=== PATIENT | female | born 1960 | race Caucasian/White ===

== ENCOUNTER 2017-12-10 16:33 | Inpatient (IN) | payer OTHER, MEDICARE ==
[~2017-12-10] VITALS: Ht 165.1 cm; Wt 66.2 kg
--- NOTE | 2017-12-10 16:38 | ED AMS/SEIZURE/WEAK/DIZZY ---
History of Present Illness General Chief Complaint: Altered Mental Status Stated Complaint: BIBA FOR AMS Source: family, EMS Exam Limitations: no limitations Vital Signs & Intake/Output Vital Signs & Intake/Output Vital Signs Date Time Temp Pulse Resp B/P B/P Pulse O2 O2 Flow FiO2 Mean Ox Delivery Rate 12/10 2156 132 18 106/80 96 Ventilator 45% 12/10 2134 124 20 103/66 95 Ventilator 45% 12/11 2039 101.9 132 18 116/78 96 Ventilator 45% 12/10 2014 45 12/10 2009 148 26 134/80 95 Non 10L ReBreather 12/10 1915 98.0 150 28 128/78 95 Non 10L ReBreather 12/10 1845 99.0 144 25 118/70 95 Nasal Cannula 12/10 1800 92 Nasal 4.0L Cannula 12/10 1715 138 24 116/86 94 Nasal 4.0L Cannula 12/10 1645 102.0 134 26 124/70 92 Room Air Triage Nurses Notes Reviewed? yes Onset: Gradual Duration: day(s): (4) Timing: recent history Injury Environment: home Severity: moderate, severe No Modifying Factors: none Associated Symptoms: REFUSING TO EAT AND DRINK HPI: 57 year old female with history of cerebral palsy from home, only takes vitamins who presents via EMS after visiting nurse came today and found her to have right years and poor by mouth intake.. Brother who takes care of her reports she vomited x 2 on Sunday and refused to eat or drink over the weekend. Normally he feeds her without difficulty. She goes to a daycare program at [facility] and usually ambulates without an aid. However over the weekend she was unable to ambulate. (Erlin CASTILLO,Grace) Allergies Coded Allergies: No Known Allergies (12/10/17) (Dilcia CASTILLO,Fernando Gale) Past History Travel History Traveled to [place] past 21 day No Medical History Any Pertinent Medical History? see below for history Neurological: CEREBRAL PALSY Surgical History Surgical History: non-contributory Family History Hx Contributory? No (Grace Kern MD) Review of Systems Review of Systems Constitutional: Reports: chills. EENTM: Reports: no symptoms. Respiratory: Reports: no symptoms. Cardiovascular: Reports: no symptoms. GI: Reports: see HPI (POOR PO INTAKE), vomiting. Genitourinary: Reports: no symptoms. Musculoskeletal: Reports: no symptoms. Skin: Reports: no symptoms. Neurological/Psychological: Reports: no symptoms. Hematologic/Endocrine: Denies: bruising, bleeding. Immunologic/Allergic: Reports: no symptoms. All Other Systems: Reviewed and Negative (Grace Kern MD) Physical Exam Physical Exam General Appearance: alert, awake, cachetic, moderate distress, severe distress, thin Head: atraumatic Eyes: Bilateral: PERRL. Ears, Nose, Throat: DRY MUCUS MEMBRANES Neck: full range of motion Respiratory: accessory muscle use, respiratory distress Cardiovascular: abdominal bruite Peripheral Pulses: 1+ radial (R), 1+ radial (L) Gastrointestinal: FIRM Extremities: NO EDEMA, MOVING ALL EXTREMITIES Neurologic/Psych: awake, alert Skin: HOT/DRY Core Measures ACS in differential dx? Yes CVA/TIA Diagnosis No Sepsis Present: Yes Sepsis Focused Exam Completed? Yes (Grace Kern MD) ED Sepsis Exam Date of Focused Sepsis Exam: 12/10/17 Time of Focused Sepsis Exam: 1911 Sepsis Cardiac Exam: Tachycardia Sepsis Resp Exam: CTA Sepsis Cap Refill Exam: >2 sec Sepsis Peripheral Pulse Exam: Normal Sepsis Peripheral Pulse Location: Radial Sepsis Skin Color Exam: Pale Skin Temp/Moisture Exam: Warm/Excessively Dry (Grace Kern MD) Progress Differential Diagnosis: arrythmia, anemia, encephalitis, electrolyte imbalance, pneumonia, UTI/pyelo, SEPSIS, INTRAABDOMINAL PROCESS, DEHYDRATION, EDIL Plan of Care: Orders Procedure Date/time Status Nothing by Mouth 12/11 B Active PHOSPHORUS 12/11 0000 Active MAGNESIUM 12/11 0000 Active COMPREHENSIVE METABOLIC PANEL 12/11 0000 Active CALCIUM 12/11 0000 Active BASIC ELECTROLYTES PLUS BUN&CR 12/11 0000 Active TROPONIN LEVEL 12/10 2330 Active EKG 12/10 2330 Active VRE ACTIVE SURVIELLANCE 12/10 2234 Active ACTIVE SURVEILLANCE NARES 12/10 2234 Active Wound Care/Dressing 12/10 222 Active Weight 12/10 2224 Active VTE Mechanical Prophylaxis 12/10 2224 Active Vital Signs 12/10 2224 Active Turn and Reposition 12/10 2224 Active Drains/Tubes 12/10 2224 Active Teach/Educate 12/10 2224 Active Skin Integrity Protocol 12/10 2224 Active Skin/Pressure Ulcer Assess (Sk 12/10 2224 Active Precautions 12/10 2224 Active Pain Treatment and Response 12/10 2224 Active Nutritional Intake, Monitor 12/10 2224 Active Isolation 12/10 2224 Active CIWA 12/10 2224 Complete Patient Care Conference 12/10 2224 Active Activity/Ambulation 12/10 2224 Active Code Status 12/10 2100 Active TRC EVALUATION (GEN) 12/10 2053 Active LOWER RESPIRATORY CULTURE 12/10 2053 Active Patient Data 12/10 2050 Active ED Holding Orders 12/10 2024 Active Admit to inpatient 12/10 2024 Active Vital Signs 12/10 2024 Active Code Status 12/10 2024 Complete LACTIC ACID 12/10 193 Active ARTERIAL BLOOD GAS (GEN) 12/10 193 Active Intake & Output 12/10 1902 Active ARTERIAL BLOOD GAS (GEN) 12/10 1826 Active GAMMA GLUTAMYL TRANSFERASE 12/10 1717 Active FingerStick- Glucose 12/10 1711 Active Straight Cath 12/10 1638 Complete CULTURE,URINE 12/10 1638 Active BLOOD CULTURE 12/10 1638 Active URINALYSIS 12/10 1638 Complete TROPONIN LEVEL 12/10 1638 Active LACTIC ACID 12/10 1638 Active COMPREHENSIVE METABOLIC PANEL 12/10 1638 Active CBC WITHOUT DIFFERENTIAL 12/10 1638 Complete EKG 12/10 1638 Active Lab Add-on Test 12/10 UNK Active Current Medications Sig/Dayday Start time Last Medication Dose Stop Time Status Admin Ampicillin Sodium/ 1,500 MG Q12 12/10 2199 AC Sulbactam Sodium (Unasyn) Sodium Chloride 100 ML (Normal Saline 0.9%) Lactated Ringer's 1,000 ML .[id number] 12/10 2144 AC 12/10 (Lactated Ringers) 2149 Laboratory Tests 12/10/172199: pH 7.29 *L, pCO2 30 L, pO2 69 L, HCO3 14 L, ABG O2 Sat (Measured) 91.0 L, P- 50 (Temp Corrected) N, Carboxyhemoglobin 0.5 L, O2 Concentration % 45%, Temperature 99.0, Respiration Rate 20, O2 Delivery Method ESPRIT VENT, Vent Mode AC, Expiratory Pressure 5, Tidal Volume 450, Phlebotomy Draw Site RIGHT RADIAL 12/10/171944: pH 7.09 *L, pCO2 59 H, pO2 375 H, HCO3 17 L, ABG O2 Sat (Measured) 99.0, P-50 (Temp Corrected) N, Carboxyhemoglobin 0.3 L, O2 Concentration % 60%, Temperature 99.0, O2 Delivery Method PRB, Phlebotomy Draw Site RIGHT RADIAL 12/10/17 1845: pH 7.23 *L, pCO2 44, pO2 82, HCO3 18 L, ABG O2 Sat (Measured) 90.0 L, P-50 ( Temp Corrected) Y, Carboxyhemoglobin 0.3 L, O2 Concentration % 4L, Temperature 102.0 H, O2 Delivery Method NC, Phlebotomy Draw Site RIGHT BRACHIAL 12/10/17 1830: Urinalysis LIGHT H, Urine Color YEL, Urine Clarity TURBD H, Urine pH 6.0, Ur Specific [place] 1.025, Urine Protein 100 H, Urine Ketones TRACE H, Urine Nitrite NEG, Urine Bilirubin SMALL H, Urine Urobilinogen 0.2, Ur Leukocyte Esterase SMALL H, Ur Microscopic SEDIMENT EXAMINED, Urine RBC 50-75 H, Urine WBC 3-5 H, Ur Epithelial Cells MANY H, Urine Bacteria MANY H, Hyaline Casts RARE H, Granular Casts MANY H, Urine Hemoglobin LARGE H, Urine Glucose NEG 12/10/17 1717: Anion Gap 16, Estimated GFR 10 L, BUN/Creatinine Ratio 23.6, Glucose 208 H, Lactic Acid 3.2 H, Calcium 6.9 L, Total Bilirubin 1.5 H, GGT Pending, AST 107 H, ALT 64 H, Alkaline Phosphatase 106, Troponin I 0.04, Total Protein 4.9 L, Albumin 2.6 L, Globulin 2.3, Albumin/Globulin Ratio 1.1, CBC w Diff MAN DIFF ORDERED, RBC 3.91 L, MCV 87.9, MCH 29.4, MCHC 33.4, RDW 13.7, MPV 8.7, Gran % 87.7 H, Lymphocytes % 3.6 L, Monocytes % 8.7, Eosinophils % 0, Basophils % 0, Absolute Granulocytes 4.5, Segmented Neutrophils 57, Band Neutrophils 30 H, Absolute Lymphocytes 0.2 L, Lymphocytes 4 L, Monocytes 6, Absolute Monocytes 0.4, Absolute Eosinophils 0, Absolute Basophils 0, Metamyelocytes 3 H, Nucleated RBCs 1 H, Platelet Estimate VERIFIED BY SMEAR, Fld Total RBCs Counted 100 Microbiology 12/10 2234 UPPER RESP: Surveillance Culture - ORD 12/10 2234 GI: Surveillance Culture - ORD 12/10 2053 LOWER RESP: Respiratory Culture - ORD 12/10 2053 LOWER RESP: Gram Stain - ORD 12/10 1830 URINE ROUT: Urine Culture - RECD 12/10 1800 BLOOD: Blood Culture - RECD 12/10 1745 BLOOD: Blood Culture - RECD Diagnostic Imaging: Viewed by Me: Radiology Read, CT Scan. Discussed w/RAD: Radiology Read, CT Scan. 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 PT REPORTS "IT HAS BEEN INFECTED ALL WEEK". C/O "FEVER AND CHILLS". DRESSING IN PLACE FROM WOUND CENTER. PT REPORTS LAST PO INTAKE 0800 TODAY - "2 EGGS AND TEA". Initial ED EKG: sinus tachycarida @ 130 bpm Rhythm Strip: sinus tachycardia Hand-Off Endorsed To: Fernando Ha MD Endorsed Time: 1906 Pending: CT (Grace Kern MD) Comments: Patient's heart rate increased to 152. Patient very mild. Repeat ABG was obtained which shows worsening acidosis. This was discussed with her brother who would like everything done. Patient intubated. (Fernando Ha MD) Departure Departure Disposition: STILL A PATIENT Referrals: Rafael Olivo MD (PCP/Family) Departure Forms: Customer Survey General Discharge Information (Grace Kern MD) Departure Condition: Critical Clinical Impression Primary Impression: Sepsis Secondary Impressions: Acute renal failure, Hypoglycemia, Metabolic acidosis, Tachycardia Admission Note Spoke With: Orestes Crespo MD Documentation of Exam: Documentation of any treatments & extenuating circumstances including Concerns Regarding Discharge (functional status, medication knowledge or non-compliance, living conditions, etc.) that warrant an admission rather than observation: [ICU admission, peripheral care consultation, IV antibiotics, aggressive hydration, nephrology consultation, respiratory therapy for ventilation settings] (Fernando Ha MD) Procedures Intubation Time of Intubation: 2014 Intubation Method: orotracheal Tube Size (cm): 7.5 Medications: succinylcholine, ETOMIDATE Breath Sounds After Intubation: equal Intubation Complications: no complications Post Intubation Xray? Yes (Fernando Ha MD) Critical Care Note Critical Care Note Critical Care Time: 30-74 min (Grace Kern MD)
--- NOTE | 2017-12-10 17:14 | RADIOLOGY REPORT ---
EXAMINATION: XR PORTABLE CHEST CLINICAL INFORMATION: Fever. Tachycardia. Vomiting. COMPARISON: None TECHNIQUE: Portable frontal view of the chest was obtained. 4:47 PM FINDINGS: Chin overlies the lung apices. No pulmonary vascular congestion. No infiltrate or pleural effusion. The cardiac and mediastinal contours are normal. There are calcifications of the aortic arch. IMPRESSION: No acute abnormality of the chest.
[2017-12-10 18:13] LABS: ABSOLUTE BASOPHIL COUNT 0 /CUMM (0.0-0.2); ABSOLUTE EOSINOPHIL COUNT 0 /CUMM (0.0-0.7); ABSOLUTE GRANULOCYTE CT 4.5 /CUMM (1.4-6.5); ABSOLUTE LYMPH COUNT 0.2 /CUMM (1.2-3.4); ABSOLUTE MONOCYTE COUNT 0.4 /CUMM (0.10-0.60); BASOPHIL % 0 % (0.0-2.0); EOSINOPHIL % 0 % (0-5); HEMATOCRIT 34.3 % (37-47); MEAN CORPUSCULAR HGB 29.4 PG (27.0-31.0); MEAN CORPUSCULAR HGB CONC 33.4 G/DL (33.0-37.0); MEAN CORPUSCULAR VOLUME 87.9 FL (81.0-99.0); MEAN PLATELET VOLUME 8.7 FL (7.4-10.4); RBC DISTRIBUTION WIDTH 13.7 % (11.5-14.5); RED BLOOD CELL CT 3.91 /CUMM (4.20-5.40); WHITE BLOOD CELL COUNT 5.1 /CUMM (4.8-10.8)
[2017-12-10 18:15] LABS: GRANULOCYTE % 87.7 % (42.2-75.2)
[2017-12-10 19:32] LABS: PLATELET COUNT 46 /CUMM (130-400)
--- NOTE | 2017-12-10 20:50 | History & Physical ---
PardeepamericaShi 12/10/172048: General Information and HPI MD Statement: I have seen and personally examined JO AVALOS and documented this H&P. The patient is a 57 year old F who presented with a patient stated chief complaint of AMS Source of Information: family Exam Limitations: unable to give history History of Present Illness: 57 year old woman from home with pmh significant for Cerebral palsy, non verbal at baseline, not on regular medications, brought by her brother for AMS. He noted since the past couple of days she seemed weak, tired and had shaking and at times would moan. She had one day where she had multiple episodes of vomiting. She had poor po intake as well as decreased UO since the past three days. No fevers were documented at home however brother felt that she warm. At baseline she needs to be fed and walks independants and attends an adult program at [facility]. She last went there on 12/07/17. Her guardians are her Brothers Tom Avalos [phone] Navid Avalos [phone]-->lives with him Allergies/Medications Allergies: Coded Allergies: No Known Allergies (12/10/17) Compliance With Home Meds: UNKNOWN Past History Travel History Traveled to [place] past 21 day No Medical History Neurological: CEREBRAL PALSY Surgical History Surgical History: non-contributory Past Family/Social History Psychosocial History Where do you live? Home Who Do You Live With? brother NAVID Smoking Status: Never Smoked ETOH Use: denies use Functional Ability ADLs Needs Assist: dressing, eating, toileting, bathing. Ambulation: independent Review of Systems Review of Systems Constitutional: Reports: see HPI. Denies: no symptoms. Exam & Diagnostic Data Last 24 Hrs of Vital Signs/I&O Vital Signs Date Time Temp Pulse Resp B/P B/P Pulse O2 O2 Flow FiO2 Mean Ox Delivery Rate 12/11 2039 101.9 132 18 116/78 96 Ventilator 45% 12/10 2014 45 12/10 2009 148 26 134/80 95 Non 10L ReBreather 12/10 1914 98.0 150 28 128/78 95 Non 10L ReBreather 12/10 1845 99.0 144 25 118/70 95 Nasal Cannula 12/10 1715 138 24 116/86 94 Nasal 4.0L Cannula 12/10 1645 102.0 134 26 124/70 92 Room Air Physical Exam General Appearance Intubated Skin No Rashes, No Breakdown Skin Temp/Moisture Exam: Cool/Dry Sepsis Skin Exam (color): Mottled HEENT PERRLA, pinpoint pupils, intubated Lymphatic Cervical nl Cardiovascular Normal S1, Normal S2, tachycardic Lungs quiet respiration Abdomen Normal Bowel Sounds, No Masses Neurological intubated and sedated Extremities No Edema, Normal Pulses, No Tenderness/Swelling Vascular Pulses Symmetrical Sepsis Peripheral Pulse Location: Dorsalis Pedis Sepsis Peripheral Pulse Exam: Normal Rectal Guiac Negative, No Hemorrhoids, no impacted stool Last 24 Hrs of Labs/Jae: Laboratory Tests 12/10/171944: pH 7.09 *L, pCO2 59 H, pO2 375 H, HCO3 17 L, ABG O2 Sat (Measured) 99.0, P-50 (Temp Corrected) N, Carboxyhemoglobin 0.3 L, O2 Concentration % 60%, Temperature 99.0, O2 Delivery Method PRB, Phlebotomy Draw Site RIGHT RADIAL 12/10/17 184: pH 7.23 *L, pCO2 44, pO2 82, HCO3 18 L, ABG O2 Sat (Measured) 90.0 L, P-50 ( Temp Corrected) Y, Carboxyhemoglobin 0.3 L, O2 Concentration % 4L, Temperature 102.0 H, O2 Delivery Method NC, Phlebotomy Draw Site RIGHT BRACHIAL 12/10/17 1830: Urinalysis LIGHT H, Urine Color YEL, Urine Clarity TURBD H, Urine pH 6.0, Ur Specific [place] 1.025, Urine Protein 100 H, Urine Ketones TRACE H, Urine Nitrite NEG, Urine Bilirubin SMALL H, Urine Urobilinogen 0.2, Ur Leukocyte Esterase SMALL H, Ur Microscopic SEDIMENT EXAMINED, Urine RBC 50-75 H, Urine WBC 3-5 H, Ur Epithelial Cells MANY H, Urine Bacteria MANY H, Hyaline Casts RARE H, Granular Casts MANY H, Urine Hemoglobin LARGE H, Urine Glucose NEG 12/10/17 1717: Anion Gap 16, Estimated GFR 10 L, BUN/Creatinine Ratio 23.6, Glucose 208 H, Lactic Acid 3.2 H, Calcium 6.9 L, Total Bilirubin 1.5 H, AST 107 H, ALT 64 H, Alkaline Phosphatase 106, Troponin I 0.04, Total Protein 4.9 L, Albumin 2.6 L, Globulin 2.3, Albumin/Globulin Ratio 1.1, CBC w Diff MAN DIFF ORDERED, RBC 3.91 L, MCV 87.9, MCH 29.4, MCHC 33.4, RDW 13.7, MPV 8.7, Gran % 87.7 H, Lymphocytes % 3.6 L, Monocytes % 8.7, Eosinophils % 0, Basophils % 0, Absolute Granulocytes 4.5, Segmented Neutrophils 57, Band Neutrophils 30 H, Absolute Lymphocytes 0.2 L, Lymphocytes 4 L, Monocytes 6, Absolute Monocytes 0.4, Absolute Eosinophils 0, Absolute Basophils 0, Metamyelocytes 3 H, Nucleated RBCs 1 H, Platelet Estimate VERIFIED BY SMEAR, Fld Total RBCs Counted 100 Microbiology 12/10 2053 LOWER RESP: Respiratory Culture - ORD 12/10 2053 LOWER RESP: Gram Stain - ORD 12/10 1830 URINE ROUT: Urine Culture - RECD 12/10 1800 BLOOD: Blood Culture - RECD 12/10 174 BLOOD: Blood Culture - RECD Diagnostic Data CXR Results SERVICE DATE: 12/10/17 EXAM TYPE: RAD - XRY-PORTABLE CHEST XRAY FINDINGS: Chin overlies the lung apices. No pulmonary vascular congestion. No infiltrate or pleural effusion. The cardiac and mediastinal contours are normal. There are calcifications of the aortic arch. IMPRESSION: No acute abnormality of the chest. SERVICE DATE: 12/10/17 EXAM TYPE: RAD - XRY-PORTABLE CHEST XRAY EXAMINATION: AP portable chest radiograph CLINICAL INFORMATION: Post intubation Other Results SERVICE DATE: 12/10/17 EXAM TYPE: CAT - CT ABD & PELVIS W/O IV CONTRAS; CT CHEST WO IV CONTRAST CT CHEST: Endotracheal and orogastric tubes in place. There is diffuse interlobular septal thickening and there is central vascular congestion suggesting mild to moderate interstitial pulmonary edema. There are small bilateral pleural effusions and there is left greater than right lower lobe consolidation that may reflect alveolar edema, atelectasis, or superimposed pneumonia in light of the clinical history. The thoracic aorta is normal in caliber. The heart is normal in size without evidence of a pericardial effusion. There is no mediastinal, hilar, or axillary adenopathy. No significant soft tissue findings within the chest. No acute osseous abnormalities. Motion artifact degrades assessment of the sternum. Spondylosis within the imaged cervical spine and upper thoracic spine. CT ABDOMEN/PELVIS: Limited evaluation of the unenhanced liver, spleen, adrenal glands, gallbladder, and pancreas reveals no definite abnormality. There is left-sided obstructive uropathy with an 8mm obstructing calculus (Hounsfield units measure 656) within the left ureteropelvic junction resulting in severe left-sided hydronephrosis. There are 2 adjacent 7 mm calculi within the lower pole of the left kidney there are a few punctate calculi at this level of the left kidney as well. There is significant left-sided perinephric stranding making it difficult to exclude superimposed pyelonephritis and/or forniceal rupture. Large volume intracolonic stool. The large and small bowel are normal in caliber without evidence of mechanical obstruction. No focal inflammatory changes adjacent to the large or the small bowel. The appendix is normal. There is no free air and there is no intra-abdominal free fluid. No mesenteric or retroperitoneal adenopathy. Bladder decompressed with a William catheter in place. No pelvic adenopathy. No free fluid within the pelvis. There are no acute osseous abnormalities. IMPRESSION: - There is left-sided obstructive uropathy with an 8mm obstructing calculus (Hounsfield units measure 656) within the left ureteropelvic junction resulting in severe left-sided hydronephrosis. There is significant left-sided perinephric stranding making it difficult to exclude superimposed pyelonephritis and/or forniceal rupture. - Additional calculi within the left kidney measuring up to 7 mm as discussed above. - There is diffuse interlobular septal thickening and there is central vascular congestion suggesting mild to moderate interstitial pulmonary edema. There are small bilateral pleural effusions and there is left greater than right lower lobe consolidation that may reflect alveolar edema, atelectasis, aspiration, or superimposed pneumonia in light of the clinical history. - Large volume intracolonic stool. No bowel obstruction. Assessment/Plan Assessment: 57 year old woman from home with pmh significant for Cerebral palsy, non verbal at baseline, not on regular medications, brought by her brother for AMS. Found to be in hypercarbic/hypoxic respiratory failure and was intubated in ED. Vitals on admission MAXIMUM TEMPERATURE 102, heart rate 124-132, blood pressure 124/70-->113/70 Labs significant for WBC 5.1, hemoglobin 11.5, hematocrit 34.3, platelets 46, left shift with bandemia of 30, sodium 138, potassium 4.5, chloride 101, bicarbonate 21, B1 106, creatinine 4.5, anion gap 16, T bili 1.5, AST 107, ALT 64, ALP 104, T bili 1.5, glucose 203, lactic acid 3.2, calcium 6.9 UA proteinuria of 100, trace ketones positive small leukocyte esterases, hyaline/ granular casts, hemoglobinuria ABG 7.23/44/82/18 on nasal cannula ---> 7.09/59/375/17 on nonrebreather ED course:S/p 5 liters normal saline, given 1 mg Ativan, 1 x time dextrose push for fingersticks of 55, one-time dose of 1 g ceftriaxone, and 1 g ca chloride for hypocalcemia. Imaging: CT CHEST: diffuse interlobular septal thickening and there is central vascular congestion suggesting mild to moderate interstitial pulmonary edema. There are small bilateral pleural effusions and there is left greater than right lower lobe consolidation that may reflect alveolar edema, atelectasis, or superimposed pneumonia CT ABDOMEN/PELVIS: left-sided obstructive uropathy with an 8mm obstructing calculus within the left ureteropelvic junction resulting in severe left-sided hydronephrosis. No free fluid within the pelvis. Problem list: severe sepsis NAGMA EDIL Transamintis thrombocytopenia Assessment and plan: Severe Sepsis: Multifactorial secondary to left-sided obstructive uropathy and community acquired pneumonia Admitted to ICU, vitals per protocol Given one-time of IV ceftriaxone Will give one-time dose of Zosyn and vancomycin, follow-up blood cultures Spoke to on-call urologist Dr. Jama who will come in for emergent decompression and stent placement tonight Trend troponin EKG, lactic acid and ICU bundle after transfer to ICU BP not responding to fluids (s/p 7 L ), will require pressors so we'll proceed with central line placement, will start on peripheral levo in the interim. Consent for central line and blood transfusion if needed obtained from guardian and placed in chart. Hypercarbic hypoxic respiratory failure Intubated in ER AC 450/20/45/[address]% [address] chest shows superimposed pneumonia and moderate pulmonary edema Once urgent decompression is done patient will likely need diuresis pending blood pressure Started on IV Ativan for sedation crcu consult in a.m. Follow up sputum culture Acute kidney injury secondary to dehydration and obstructive uropathy continue to monitor closely Hyperbilirubinemia/transaminitis/thrombocytopenia likely secondary to her sepsis will continue to trend will follow up fibrinogen to r/o DIC DVT prophylaxis ALPS (thrombocytopenia) code status: DNR Her brothers and [id number] are her guardians. Contact information in HPI. Family initially wanted to de-escalate her care however however they would like to attempt the decompression with ureteral stent along with central line and continuing current management for now. They will reassess her care pending her response. As Ranked By This Provider Problem List: 1. Sepsis 2. Acute renal failure 3. Metabolic acidosis Core Measures/Misc (06/17) Acute Coronary Syndrome ACS Diagnosis: No Congestive Heart Failure Congestive Heart Failure Diagnosis No Cerebrovascular Accident CVA/TIA Diagnosis: No VTE (View Protocol) VTE Risk Factors Acute Medical Illness No Mechanical VTE Prophylaxis d/t N/A MechProphylax Ordered No VTE Pharm Prophylaxis d/t Surgical Contraindication Sepsis (View protocol) Sepsis Present: Yes Orestes Crespo 12/11/17 0301: Attending MD Review Statement Attending Statement Attending MD Statement: examined this patient, discuss w/resident/PA/MEAT COOLER, agreed w/resident/PA/MEAT COOLER, discussed with family, reviewed EMR data (avail), reviewed images, amended to note Attending Assessment/Plan: CC: Altered mental status PMH: Cerebral palsy Patient was brought in ER through EMS for altered mental status and high-grade fever. Patient has baseline cerebral palsy, ambulates without assistance, needs assistance in feeding, nonverbal. According to her street light servicer supervisor brother Navid, patient was looking sick since last 3 days, throwing up since one day, multiple times, nonbloody, no diarrhea. Patient cannot complain of pain but he could see her shaking and subjective fever. Today patient was more altered in mental status so he called an ambulance. Otherwise history is limited. Patient is not allergic to any medications, does not take any medication on a regular basis. Vitals: Tmax 102, pulse 130s - 150s, RR 26, blood pressure 124/70 on arrival, saturating 92% on 4 L initially, then on 10 L and later intubated. On examination patient intubated, CVS: S1-S2 RRR RS: Equal air entry bilaterally , JVD not elevated, mucosa extremely dry, abdomen soft, bowel sounds present, no peripheral edema, skin appears mottled, William in place, right-sided EJ line present, feeble peripheral pulses CT head:No acute intracranial pathology. CT abdomen and pelvis and chest without IV contrast: - There is left-sided obstructive uropathy with an 8mm obstructing calculus ( Hounsfield units measure 656) within the left ureteropelvic junction resulting in severe left-sided hydronephrosis. There is significant left-sided perinephric stranding making it difficult to exclude superimposed pyelonephritis and/or forniceal rupture. - Additional calculi within the left kidney measuring up to 7 mm as discussed above. - There is diffuse interlobular septal thickening and there is central vascular congestion suggesting mild to moderate interstitial pulmonary edema. There are small bilateral pleural effusions and there is left greater than right lower lobe consolidation that may reflect alveolar edema, atelectasis, aspiration, or superimposed pneumonia in light of the clinical history. - Large volume intracolonic stool. No bowel obstruction. Assessment and plan 57-year-old female with past medical history significant for cerebral palsy, nonverbal at baseline, ambulates independently, presented in ER for heart and mental status and fever. Patient's brother noticed subjective fever, chills and one day history of vomiting, but patient appeared a little sick since last 2-3 days, difficult to explain what exactly. Patient cannot complain anything secondary to her cerebral palsy. Patient was severely tachypneic upon arrival, fever of 102 and blood pressure was maintaining initially. ABG was 7.32/44/82/18 on 4 L nasal cannula. Patient became progressively tachypneic even with fluid resuscitation, repeat ABG showed pH of 7.09, PCO2 49, PO2 375, HCO3 17 on nonrebreather, patient was immediately intubated while in ER. Patient's blood pressure decreased to 90/50 at that time but improved with hydration. Patient is intubated, exam is noncontributory except severe dehydration. She shows WBC normal range but 30 bands. She has thrombocytopenia of 46. Her BUN is significantly elevated to 106, creatinine 4.5, baseline unknown, lactate 3.2, elevated bilirubin to 1.5, mild transaminitis with AST 107 and ALT 64 and albumin of 2.6. UA shows evidence of leukocyte esterase. On imaging she is found to have obstructive ureter at stone, with left-sided hydronephrosis, suspected pyelonephritis. After transferring to intensive care unit patient's blood pressure dropped to 70/Doppler, not responding much even after 7 L boluses, patient was started on peripheral Levophed, left sided IJ line was placed. Blood culture 2 sets came back positive for gram-negative rods, patient's antibiotics were broadened to Zosyn. Urology was called, expecting cystoscopy and stent placement. I had an extensive discussion with patient's family, 2 brothers and one sister- in-law, they were ambiguous about decision making. Initially they wanted her only to be comfortable, refused central line. Once it was explained that urinary infection and ureteric stone can be treated, they agreed for central line, aggressive measures but DNR. If patient does not appropriately response to treatment they want to change her to comfort measures only. They are involved with every step of care. + Septic shock secondary to pyelonephritis with gram-negative bacteremia + Left-sided hydronephrosis with suspected pyelonephritis + Acute kidney injury + Thrombocytopenia + Acute respiratory failure: Hypoxic and hypercarbic + Metabolic acidosis: severe + Mild transaminitis - Admit to ICU - Close vitals monitoring - Continue at assist control, tidal volume 450 PEEP 5, respiratory rate of 24,, titrate oxygen according to saturations, repeat ABG one hour later followed by in AM - Continue to wide bore peripheral lines - Continue Levophed titrated to map 65 - Additional Fabian-Synephrine if blood pressure not controlled - Continue maintenance fluid D5NS - Follow up urine culture, blood culture - Trend lactate - Send DIC panel 4 thrombocytopenia - Continue IV Zosyn - Follow-up urology recommendations - DVT prophylaxis with Alps only - Continue Ativan for sedation - Critical care consult - IV Protonix 40 mg daily - Oral care - DNR TTS 55 min
--- NOTE | 2017-12-10 21:29 | RADIOLOGY REPORT ---
EXAMINATION: AP portable chest radiograph CLINICAL INFORMATION: Post intubation COMPARISON: Chest x-ray 12/10/2017 TECHNIQUE: Portable frontal view of the chest was obtained. FINDINGS: Endotracheal tube tip is 4 cm above the channing. Orogastric tube courses below the diaphragm with its tip projecting over the stomach. Symmetric lung inflation. There is patchy airspace opacity within the left lower lung and there is diffuse interstitial prominence. No definite pleural effusion. No pneumothorax. Cardiac silhouette size is normal and the aorta is tortuous. IMPRESSION: - Endotracheal tube tip 4 cm above the channing. Orogastric tube within the stomach. - Patchy airspace opacity at the left lung base and diffuse interstitial opacities have progressed.
--- NOTE | 2017-12-10 21:32 | CT SCAN REPORT ---
EXAMINATION: CT HEAD WITHOUT CONTRAST CLINICAL INFORMATION: Altered mental status COMPARISON: None TECHNIQUE: Contiguous axial imaging was performed from the skull base to vertex without intravenous administration of contrast. DLP: 603.69 mGy-cm FINDINGS: There is no evidence of acute intracranial hemorrhage or territorial infarction. No abnormal mass effect or midline shift is seen. Young to white matter differentiation is well preserved. No extra-axial fluid collections are identified. The ventricles are normal in size. There is no abnormal attenuation within the brain parenchyma. The osseous structures and soft tissues are normal. There is significant mucosal thickening in the ethmoid sinuses. Thick rim of mucosal thickening also seen in the superior maxillary sinuses. There is no fluid in the middle ear cavities or the mastoid air cells. IMPRESSION: No acute intracranial pathology.
--- NOTE | 2017-12-10 21:44 | CT SCAN REPORT ---
CT CHEST, ABDOMEN, AND PELVIS WITHOUT CONTRAST CLINICAL INFORMATION: Normal chest x-ray with renal failure and fever. Altered mental status. COMPARISON: Chest x-ray performed earlier the same day. TECHNIQUE: A multidetector CT acquisition of the chest, abdomen, and pelvis was obtained without IV contrast FINDINGS: CT CHEST: Endotracheal and orogastric tubes in place. There is diffuse interlobular septal thickening and there is central vascular congestion suggesting mild to moderate interstitial pulmonary edema. There are small bilateral pleural effusions and there is left greater than right lower lobe consolidation that may reflect alveolar edema, atelectasis, or superimposed pneumonia in light of the clinical history. The thoracic aorta is normal in caliber. The heart is normal in size without evidence of a pericardial effusion. There is no mediastinal, hilar, or axillary adenopathy. No significant soft tissue findings within the chest. No acute osseous abnormalities. Motion artifact degrades assessment of the sternum. Spondylosis within the imaged cervical spine and upper thoracic spine. CT ABDOMEN/PELVIS: Limited evaluation of the unenhanced liver, spleen, adrenal glands, gallbladder, and pancreas reveals no definite abnormality. There is left-sided obstructive uropathy with an 8mm obstructing calculus (Hounsfield units measure 656) within the left ureteropelvic junction resulting in severe left-sided hydronephrosis. There are 2 adjacent 7 mm calculi within the lower pole of the left kidney there are a few punctate calculi at this level of the left kidney as well. There is significant left-sided perinephric stranding making it difficult to exclude superimposed pyelonephritis and/or forniceal rupture. Large volume intracolonic stool. The large and small bowel are normal in caliber without evidence of mechanical obstruction. No focal inflammatory changes adjacent to the large or the small bowel. The appendix is normal. There is no free air and there is no intra-abdominal free fluid. No mesenteric or retroperitoneal adenopathy. Bladder decompressed with a William catheter in place. No pelvic adenopathy. No free fluid within the pelvis. There are no acute osseous abnormalities. IMPRESSION: - There is left-sided obstructive uropathy with an 8mm obstructing calculus (Hounsfield units measure 656) within the left ureteropelvic junction resulting in severe left-sided hydronephrosis. There is significant left-sided perinephric stranding making it difficult to exclude superimposed pyelonephritis and/or forniceal rupture. - Additional calculi within the left kidney measuring up to 7 mm as discussed above. - There is diffuse interlobular septal thickening and there is central vascular congestion suggesting mild to moderate interstitial pulmonary edema. There are small bilateral pleural effusions and there is left greater than right lower lobe consolidation that may reflect alveolar edema, atelectasis, aspiration, or superimposed pneumonia in light of the clinical history. - Large volume intracolonic stool. No bowel obstruction.
[2017-12-11] VITALS: BP 78/00
--- NOTE | 2017-12-11 01:20 | Proc Note Internal Medicine ---
Medicine Procedure Procedure Date: 12/11/17 Medical Procedure(s): central venous cath place Pre-Operative Diagnosis: Obstructive uropathy Estimated Blood Loss: scant Anesthesia: local Procedure Findings: Resident: Oriana Perez MD Consent was obtained by the ICU team from the the pts family. A time-out was completed verifying correct patient, procedure, site, positioning , and special equipment if applicable. The patient was placed in a dependent position appropriate for central line placement based on the vein to be cannulated. The patients right neck was prepped and draped in sterile fashion. 1% Lidocaine was used to anesthetize the surrounding skin area. A triple lumen catheter was introduced into the the left internal jugular using the Seldinger technique and under ultrasound guidance. The catheter was threaded smoothly over the guide wire and appropriate blood return was obtained. Each lumen of the catheter was evacuated of air and flushed with sterile saline. The catheter was then sutured in place to the skin and a sterile dressing applied. Perfusion to the extremity distal to the point of catheter insertion was checked and found to be adequate. Attending physician Orestes Crespo MD was present for the entire procedure. Estimated Blood Loss: 10 ml The patient tolerated the procedure well and there were no complications. Chest x ray was ordered to confirm the placement of IJ line.
--- NOTE | 2017-12-11 01:49 | RADIOLOGY REPORT ---
EXAMINATION: XR PORTABLE CHEST CLINICAL INFORMATION: Central line placement COMPARISON: 12/10/2017 TECHNIQUE: Portable frontal view of the chest was obtained. FINDINGS: Endotracheal tube tip lies 4.3 cm above the channing. Enteric tube courses into the stomach. Left IJ central line tip lies at the level of the cavoatrial junction. Lung volumes are symmetric. There is hazy perihilar and left upper lung airspace opacity. No pneumothorax is seen though the right lung apex is not fully included on this exam. No significant pleural effusion. The cardiomediastinal contour is unremarkable. No acute osseous findings are seen. IMPRESSION: Left IJ central line tip in the region of the cavoatrial junction. Hazy perihilar and left upper lobe opacification which may reflect edema.
[2017-12-11 02:25] LABS: ABSOLUTE BASOPHIL COUNT 0 /CUMM (0.0-0.2); ABSOLUTE GRANULOCYTE CT 4.7 /CUMM (1.4-6.5); ABSOLUTE LYMPH COUNT 0.2 /CUMM (1.2-3.4); ABSOLUTE MONOCYTE COUNT 0.9 /CUMM (0.10-0.60); BASOPHIL % 0 % (0.0-2.0); EOSINOPHIL % 14.1 % (0-5); MEAN CORPUSCULAR HGB 29.8 PG (27.0-31.0); MEAN CORPUSCULAR HGB CONC 34.2 G/DL (33.0-37.0); MEAN CORPUSCULAR VOLUME 87.2 FL (81.0-99.0); MEAN PLATELET VOLUME 9.5 FL (7.4-10.4); RBC DISTRIBUTION WIDTH 14.1 % (11.5-14.5); RED BLOOD CELL CT 3.33 /CUMM (4.20-5.40); WHITE BLOOD CELL COUNT 6.8 /CUMM (4.8-10.8)
[2017-12-11 02:40] LABS: PLATELET COUNT 23 /CUMM (130-400)
--- NOTE | 2017-12-11 02:54 | Cons- Urology ---
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 She was brought to the ER with altered mental status and was found to have a septic picture. Urine was c/w UTI on U/A. CT of the abd and pelvis showed an obstructing stone at the L UPJ as well as some non obstructing stones in the L lower pole. Allergies/Medications Allergies: Coded Allergies: No Known Allergies (12/10/17) Current Medications: Current Medications Sig/Dayday Start time Last Medication Dose Route Stop Time Status Admin Acetaminophen 0 .STK-MED ONE 12/10 2107 DC IV Ampicillin Sodium/ 1,500 MG Q12 12/10 2200 DC Sulbactam Sodium IV Sodium Chloride 100 ML Calcium Chloride 0 .STK-MED ONE 12/10 1917 DC .ROUTE Calcium Chloride 1 GM ONCE ONE 12/10 1845 DC 12/10 IV 12/10 1846 1909 Ceftriaxone Sodium 0 .STK-MED ONE 12/10 1832 DC .ROUTE Ceftriaxone Sodium 1,000 MG ONCE ONE 12/10 1830 DC / IV 12/10 1831 1832 Dextrose 25 GM ONE ONE 12/10 2345 DC 12/10 IV 12/10 2346 2340 Dextrose 25 GM ONCE ONE 12/10 1715 DC 12/10 IV 12/10 1716 1715 Dextrose/Lactated 1,000 ML Q13H 12/10 2345 AC 12/11 Ringer's IV 0122 Etomidate 20 MG ONCE ONE 12/10 2030 DC /12 IV 12/10 Heparin Sodium 5,000 UNIT Q8 12/11 1400 CAN (Porcine) SC Lactated Ringer's 1,000 ML ONCE ONE 12/10 2315 DC IV 12/10 2316 Lactated Ringer's 1,000 ML .[id number] 12/10 2145 AC 12/10 IV 2150 Lactated Ringer's 1,000 ML .Q2H 12/10 2100 DC 12/10 IV 12/10 2259 2119 Lorazepam 50 MG Q24H 12/10 2345 AC 12/11 Dextrose/Water 500 ML IV 0030 Lorazepam 1 MG ONCE ONE 12/10 1930 DC / IV / 193 1930 Lorazepam 0 .STK-MED ONE 12/10 1923 DC .ROUTE Lorazepam 0 .STK-MED ONE 12/10 1832 DC .ROUTE Lorazepam 1 MG ONCE ONE 12/10 1830 DC / IV / 1831 1831 Norepinephrine 4 MG Q24H 12/10 2345 AC 12/11 Dextrose/Water 250 ML IV 0156 Phenylephrine HCl 40 MG Q24H 12/11 0300 CAN Dextrose/Water 250 ML IV Phenylephrine HCl 40 MG Q24H 12/11 0300 AC Sodium Chloride 250 ML IV Sodium Chloride 1,000 ML BOLUS ONE 12/10 1830 DC / IV 12/10 192 1909 Sodium Chloride 1,000 ML BOLUS ONE 12/10 1830 DC / IV 12/10 192 1909 Sodium Chloride 1,000 ML BOLUS ONE 12/10 1645 DC / IV 12/10 1744 1715 Succinylcholine 100 MG ONCE ONE 12/10 2029 DC 12/10 Chloride IV 12/10 Vancomycin HCl 1,000 MG ONCE ONE 12/10 2315 CAN Dextrose/Water 250 ML IV 12/11 0014 Vecuronium Jolo 10 MG ONCE ONE 12/10 2029 DC 12/10 IV 12/10 Past History Medical History Blood Transfusion Hx: No Neurological: CEREBRAL PALSY EENT: NONE Cardiovascular: NONE Respiratory: NONE Gastrointestinal: NONE Hepatic: NONE Renal: NONE Musculoskeletal: NONE Psychiatric: NONE Endocrine: NONE Blood Disorders: NONE Cancer(s): NONE DIRECTOR OF VALUATION/Reproductive: NONE Surgical History Pertinent Surgical History: non-contributory Psychosocial History Where Do You Live? Home Who Do You Live With? brother FER Smoking Status: Never Smoked ETOH Use: denies use Illicit Drug Use: denies illicit drug use Functional Ability ADLs Needs Assist: dressing, eating, toileting, bathing. Ambulation: independent Exam & Diagnostic Data Vital Signs and I&O Vital Signs Date Time Temp Pulse Resp B/P B/P Pulse O2 O2 Flow FiO2 Mean Ox Delivery Rate 12/11 0156 130 20 67/51 12/11 0124 50 12/10 2345 99.3 127 20 71/58 12/10 2340 93 Ventilator 50% 12/10 2240 50 12/10 2157 132 18 106/80 96 Ventilator 45% 12/105 124 20 103/66 95 Ventilator 45% 12/100 101.9 132 18 116/78 96 Ventilator 45% 12/10 2014 45 12/10 2009 148 26 134/80 95 Non 10L ReBreather 12/10 1915 98.0 150 28 128/78 95 Non 10L ReBreather 12/10 1845 99.0 144 25 118/70 95 Nasal Cannula 12/10 1800 92 Nasal 4.0L Cannula 12/10 1715 138 24 116/86 94 Nasal 4.0L Cannula 12/10 1645 102.0 134 26 124/70 92 Room Air Intake & Output 12/11 0800 12/11 0000 12/10 1600 12/10 0800 12/10 0000 12/09 1600 Intake Total 6000 Output Total 60 Balance 5940 Intake, IV 6000 Output, Urine 60 Patient 133 lb Weight Weight Bed scale Measurement Method Intubated and unresponsive Back: no CVA tenderness Abd; soft and non tender Laboratory Tests 12/11 12/11 12/10 0150 0020 2330 Chemistry Sodium (137 - 145 mmol/L) 141 Potassium (3.5 - 5.1 mmol/L) 4.2 Chloride (98 - 107 mmol/L) 115 H Carbon Dioxide (22 - 30 mmol/L) 15 L Anion Gap (5 - 16) 11 BUN (7 - 17 mg/dL) 81 H Creatinine (0.5 - 1.0 mg/dL) 3.7 H Estimated GFR (>60 ml/min) 13 L Glucose (65 - 99 mg/dL) 148 H Lactic Acid (0.7 - 2.1 mmol/L) 4.4 H Calcium (8.4 - 10.2 mg/dL) 7.0 L Phosphorus (2.5 - 4.5 mg/dL) 4.6 H Magnesium (1.6 - 2.3 mg/dL) 1.6 Total Bilirubin (0.2 - 1.3 mg/dL) 1.3 AST (14 - 36 U/L) 90 H ALT (9 - 52 U/L) 58 H Troponin I (< 0.11 ng/ml) 0.11 *H Cancelled Albumin (3.5 - 5.0 g/dL) 1.9 L Coagulation PT Pending INR Pending APTT Pending Fibrinogen Activity Pending Hematology CBC w Diff MAN DIFF ORDERED WBC (4.8 - 10.8 /CUMM) 6.8 RBC (4.20 - 5.40 /CUMM) 3.33 L Hgb (12.0 - 16.0 G/DL) 9.9 L Hct (37 - 47 %) 29.0 L MCV (81.0 - 99.0 FL) 87.2 MCH (27.0 - 31.0 PG) 29.8 MCHC (33.0 - 37.0 G/DL) 34.2 RDW (11.5 - 14.5 %) 14.1 Plt Count (130 - 400 /CUMM) 23 *L MPV (7.4 - 10.4 FL) 9.5 Gran % (42.2 - 75.2 %) 69.0 Lymphocytes % (20.5 - 51.1 %) 3.4 L Monocytes % (1.7 - 9.3 %) 13.5 H Eosinophils % (0 - 5 %) 14.1 H Basophils % (0.0 - 2.0 %) 0 Absolute Granulocytes (1.4 - 6.5 /CUMM) 4.7 Segmented Neutrophils (42.2 - 75.2 %) 48 Band Neutrophils (0.0 - 5.0 %) 8 H Absolute Lymphocytes (1.2 - 3.4 /CUMM) 0.2 L Lymphocytes (20.5 - 51.1 %) 14 L Monocytes (1.7 - 9.3 %) 21 H Absolute Monocytes (0.10 - 0.60 /CUMM) 0.9 H Absolute Eosinophils (0.0 - 0.7 /CUMM) 1.0 Absolute Basophils (0.0 - 0.2 /CUMM) 0 Metamyelocytes (0.0 - 1.0 %) 6 H Myelocytes (0 - 0 %) 3 H Platelet Estimate (ADEQUATE) VERIFIED BY SMEAR Polychromasia 1+ Anisocytosis 1+ Monae Cells 1+ 12/100 194 193 Blood Gas pH (7.35 - 7.45 PH) 7.29 *L 7.09 *L pCO2 (35 - 45 TORR) 30 L 59 H pO2 (80 - 100 TORR) 69 L 375 H HCO3 (21 - 28 MEQ/L) 14 L 17 L ABG O2 Sat (Measured) (>96.0 %) 91.0 L 99.0 P-50 (Temp Corrected) N N Carboxyhemoglobin (1.5 - 5.0 %) 0.5 L 0.3 L O2 Concentration % 45% 60% Temperature (97.0 - 100.0 FARH) 99.0 99.0 Respiration Rate (BPM) 20 O2 Delivery Method ESPRIT VENT PRB Vent Mode AC Expiratory Pressure (CMH2O/P) 5 Tidal Volume (CC) 450 Chemistry Lactic Acid Cancelled Miscellaneous Phlebotomy Draw Site RIGHT RADIAL RIGHT RADIAL 12/10 12/10 1845 1830 Blood Gas pH (7.35 - 7.45 PH) 7.23 *L pCO2 (35 - 45 TORR) 44 pO2 (80 - 100 TORR) 82 HCO3 (21 - 28 MEQ/L) 18 L ABG O2 Sat (Measured) (>96.0 %) 90.0 L P-50 (Temp Corrected) Y Carboxyhemoglobin (1.5 - 5.0 %) 0.3 L O2 Concentration % 4L Temperature (97.0 - 100.0 FARH) 102.0 H O2 Delivery Method NC Miscellaneous Phlebotomy Draw Site RIGHT BRACHIAL Urines Urinalysis LIGHT H Urine Color (YEL,AMB,STR) YEL Urine Clarity (CLEAR) TURBD H Urine pH (5.0 - 8.0) 6.0 Ur Specific [place] (1.001 - 1.035) 1.025 Urine Protein (NEG,<30 MG/DL) 100 H Urine Ketones (NEG) TRACE H Urine Nitrite (NEG) NEG Urine Bilirubin (NEG) SMALL H Urine Urobilinogen (0.1 - 1.0 EU/dl) 0.2 Ur Leukocyte Esterase (NEG) SMALL H Ur Microscopic SEDIMENT EXAMINED Urine RBC (0 - 5 /HPF) 50-75 H Urine WBC (0 - 2 /HPF) 3-5 H Ur Epithelial Cells (NONE,FEW) MANY H Urine Bacteria (NEG/NONE) MANY H Hyaline Casts (0/LPF) RARE H Granular Casts (NONE /LPF) MANY H Urine Hemoglobin (NEG) LARGE H Urine Glucose (N MG/DL) NEG 12/10 171 Chemistry Sodium (137 - 145 mmol/L) 138 Potassium (3.5 - 5.1 mmol/L) 4.5 Chloride (98 - 107 mmol/L) 101 Carbon Dioxide (22 - 30 mmol/L) 21 L Anion Gap (5 - 16) 16 BUN (7 - 17 mg/dL) 106 *H Creatinine (0.5 - 1.0 mg/dL) 4.5 H Estimated GFR (>60 ml/min) 10 L BUN/Creatinine Ratio (7 - 25 %) 23.6 Glucose (65 - 99 mg/dL) 208 H Lactic Acid (0.7 - 2.1 mmol/L) 3.2 H Calcium (8.4 - 10.2 mg/dL) 6.9 L Total Bilirubin (0.2 - 1.3 mg/dL) 1.5 H GGT (12 - 43 U/L) 12 AST (14 - 36 U/L) 107 H ALT (9 - 52 U/L) 64 H Alkaline Phosphatase (<127 U/L) 106 Troponin I (< 0.11 ng/ml) 0.04 Total Protein (6.3 - 8.2 g/dL) 4.9 L Albumin (3.5 - 5.0 g/dL) 2.6 L Globulin (1.9 - 4.2 gm/dL) 2.3 Albumin/Globulin Ratio (1.1 - 2.2 %) 1.1 Hematology CBC w Diff MAN DIFF ORDERED WBC (4.8 - 10.8 /CUMM) 5.1 RBC (4.20 - 5.40 /CUMM) 3.91 L Hgb (12.0 - 16.0 G/DL) 11.5 L Hct (37 - 47 %) 34.3 L MCV (81.0 - 99.0 FL) 87.9 MCH (27.0 - 31.0 PG) 29.4 MCHC (33.0 - 37.0 G/DL) 33.4 RDW (11.5 - 14.5 %) 13.7 Plt Count (130 - 400 /CUMM) 46 L MPV (7.4 - 10.4 FL) 8.7 Gran % (42.2 - 75.2 %) 87.7 H Lymphocytes % (20.5 - 51.1 %) 3.6 L Monocytes % (1.7 - 9.3 %) 8.7 Eosinophils % (0 - 5 %) 0 Basophils % (0.0 - 2.0 %) 0 Absolute Granulocytes (1.4 - 6.5 /CUMM) 4.5 Segmented Neutrophils (42.2 - 75.2 %) 57 Band Neutrophils (0.0 - 5.0 %) 30 H Absolute Lymphocytes (1.2 - 3.4 /CUMM) 0.2 L Lymphocytes (20.5 - 51.1 %) 4 L Monocytes (1.7 - 9.3 %) 6 Absolute Monocytes (0.10 - 0.60 /CUMM) 0.4 Absolute Eosinophils (0.0 - 0.7 /CUMM) 0 Absolute Basophils (0.0 - 0.2 /CUMM) 0 Metamyelocytes (0.0 - 1.0 %) 3 H Nucleated RBCs (0.0 - 0.0 /100WBC) 1 H Platelet Estimate (ADEQUATE) VERIFIED BY SMEAR Other Body Source Fld Total RBCs Counted (%) 100 Assessment/Plan Assessment/Plan Imp: 1. Sepsis, likely of urologic origin 2. Obstructing L UPJ stone Plan: 1. For attempt at emergent L ureteral stent placement Consult Acknowledgment - Thank you for your consult request.
[2017-12-11 02:56] LABS: PT 13.9 SEC (9.4-12.5); PTT 27 SEC (25-37)
--- NOTE | 2017-12-11 03:04 | Event Note ---
Event Note Event Note: Emergent left IJ line was placed, and made arrangements for stent placement by Dr. Cullen for the managment of obstructing Obstructing L UPJ stone. Central left IJ line was placed. Confirmed from the radiology about the appropriate placement. Levophed was continued. Was informed that the blood cultures were positive for GNRs. Started the pt on zosyn. Plan to discuss w/ the infectious disease specialist in the am. BP remained persistently low despite being on levophed. Started on neosynephrine , since it is easily titratable. Discussed with the pts brother about the management plan, and consent obtained for the stent placement. Transfered the pt to the OR. Discussed w/ Dr. Cullen about the incidental CT scan finding of forniceal rupture. Plan is to attempt at placing a stent, and hopefully the relief in pressure would treat the sepsis. And, management of forniceal rupture is usually conservative, and hopfully it should heal by itself. Currently on max dose of pressors, and BP is around 90/70. Informed the family. Plan to start vaso.
--- NOTE | 2017-12-11 03:04 | Admission Certification ---
Admission Certification Certification Statement - As attending physician, I certify that at the time of - admission, based on clinical presentation, severity of - symptoms, need for further diagnostic testing and - therapeutic interventions, and risk of adverse outcomes - without in-hospital treatment, in my clinical assessment, - this patient requires an acute hospital stay for a minimum - of two nights or longer. I have also considered psychsocial - factors such as support system, advanced age, financial - issues, cognitive issues, and failed out-patient treatments, - past re-admission history, safety of patient, and lack of - compliance as applicable. Specific rationale supporting this admission is: Septic shock
[2017-12-11 05:56] LABS: ABSOLUTE BASOPHIL COUNT 0 /CUMM (0.0-0.2); BASOPHIL % 0 % (0.0-2.0); EOSINOPHIL % 13.9 % (0-5); MEAN CORPUSCULAR HGB CONC 34.3 G/DL (33.0-37.0); RED BLOOD CELL CT 3.44 /CUMM (4.20-5.40)
[2017-12-11 06:03] LABS: ABSOLUTE EOSINOPHIL COUNT 1.8 /CUMM (0.0-0.7); ABSOLUTE GRANULOCYTE CT 9.3 /CUMM (1.4-6.5); ABSOLUTE LYMPH COUNT 0.6 /CUMM (1.2-3.4); ABSOLUTE MONOCYTE COUNT 1.5 /CUMM (0.10-0.60); GRANULOCYTE % 70.4 % (42.2-75.2); HEMATOCRIT 30.6 % (37-47); MEAN CORPUSCULAR HGB 30.4 PG (27.0-31.0); MEAN CORPUSCULAR VOLUME 88.8 FL (81.0-99.0); MEAN PLATELET VOLUME 9.5 FL (7.4-10.4); RBC DISTRIBUTION WIDTH 14.7 % (11.5-14.5)
[2017-12-11 06:11] LABS: WHITE BLOOD CELL COUNT 13.2 /CUMM (4.8-10.8)
[2017-12-11 06:13] LABS: PLATELET COUNT 28 /CUMM (130-400)
--- NOTE | 2017-12-11 06:53 | Event Note ---
Event Note Event Note: S: Positive blood cultures B: Pt admitted for sepsis and EDIL A/R: BC positive x4 gram negative rods. In addition 4th bottle growing gram + cocci. Patient received 1 dose of ceftriaxone 1gm earlier. Added 1 gm of vancomycin based on renal function per pharmacy.
--- NOTE | 2017-12-11 07:11 | RADIOLOGY REPORT ---
EXAMINATION: CR ABDOMEN/INTRAOPERATIVE FLUOROSCOPY CLINICAL INDICATION: Left ureteroscopy and left stent placement. COMPARISON: CT scan of the abdomen and pelvis dated 12/10/2017. TECHNIQUE/FINDINGS: Fluoroscopic equipment was dedicated to the operating room for the performance of an intraoperative procedure. Several (9) spot films were acquired and are archived in PACS. Please refer to operative notes for procedural detail. FLUOROSCOPY TIME: 15.5 seconds. IMPRESSION: Administrative dictation for intraoperative fluoroscopy and image archiving in PACS. Please refer to operative notes for details.
--- NOTE | 2017-12-11 07:15 | RADIOLOGY REPORT ---
EXAMINATION: XR PORTABLE CHEST CLINICAL INFORMATION: Pulmonary edema. On ventilator. COMPARISON: Chest x-ray from earlier today and 12/10/2017. CT scan of the chest dated 12/10/2017. TECHNIQUE: Portable AP supine view of the chest was obtained. FINDINGS: Multiple EKG leads overlie the chest. Endotracheal tube is in place with tip approximately 5 cm above the channing. Enteric tube courses into the abdomen with tip not included. A left ureteral pigtail catheter is partially included. A left jugular central venous line is in place with tip at the cavoatrial junction, unchanged. The cardiac mediastinal silhouette is within normal limits in size. There is diffuse perihilar opacity seen in the lungs bilaterally, unchanged when allowing for slight differences in technique and patient positioning. Findings are consistent with pulmonary edema. There is likely trace pleural fluid in the right minor fissure. No pneumothorax is seen. No evolving dense consolidation is noted. Bony structures are unremarkable. IMPRESSION: 1. Endotracheal tube tip 5 cm above the channing. 2. Enteric tube courses into the abdomen with tip not included. 3. No change in positioning of left jugular central venous line with tip at the cavoatrial junction. 4. No interval change in diffuse bilateral lung parenchymal opacities, consistent with pulmonary edema.
--- NOTE | 2017-12-11 07:46 | Cons- CRCU ---
Geovani CASTILLO,Leah 12/11/17 0745: General Information and HPI Consulting Request Date of Consult: 12/11/17 Requested By: Dr. Crespo Reason for Consult: critical illness Source of Information: family, old records Exam Limitations: unable to give history, poor historian, physical impairment History of Present Illness: This is a 57-year-old female with past medical history significant for cerebral palsy who is not verbal at baseline, who does not take any medications, who was brought in by her family for weakness, vomiting, poor p.o. intake for the past 3 days. She is baseline nonverbal and needs assistance for feeding but is independently ambulatory. On admission she was found to be febrile up to 102 tachycardic up to 132 and progressively worsening hypotension that ended up requiring central access and [address] of the abdomen and pelvis showed severe left-sided obstructive uropathy due to 8 mm calculi within the left UPJ resulting in hydronephrosis and possible calyceal rupture. Patient was emergently taken to the OR by Dr. Carlos and a left UPJ stent was placed successfully. She remained intubated and transferred to the intensive care unit. She received 1 g of ceftriaxone followed by vancomycin and Zosyn. Her blood cultures are positive 2 for GNR's. Allergies/Medications Allergies: Coded Allergies: No Known Allergies (12/10/17) Current Medications: Current Medications Sig/Dayday Start time Last Medication Dose Route Stop Time Status Admin Acetaminophen 1,000 MG .STK-MED ONE 12/11 0244 DC IV 12/11 0245 Acetaminophen 0 .STK-MED ONE 12/10 2107 DC IV Ampicillin Sodium/ 1,500 MG Q12 12/10 2200 DC Sulbactam Sodium IV Sodium Chloride 100 ML Calcium Chloride 0 .STK-MED ONE 12/10 1917 DC .ROUTE Calcium Chloride 1 GM ONCE ONE 12/10 1845 DC 12/10 IV 12/10 1846 1909 Ceftriaxone Sodium 1,000 MG DAILY 12/11 1300 UNVr IV Ceftriaxone Sodium 0 .STK-MED ONE 12/10 1832 DC .ROUTE Ceftriaxone Sodium 1,000 MG ONCE ONE 12/10 1830 DC 12/10 IV 12/10 1831 1832 Chlorhexidine 0 .STK-MED ONE 12/11 0727 DC Gluconate TOP 12/11 0728 Dextrose 25 GM ONE ONE 12/10 2345 DC 03/ IV 12/10 2346 2340 Dextrose 25 GM ONCE ONE 12/10 1715 DC / IV 12/10 1716 1715 Dextrose/Lactated 1,000 ML Q6H 12/11 0430 DC Ringer's IV Dextrose/Lactated 1,000 ML Q13H 12/10 2345 DC 12/11 Ringer's IV 0122 Etomidate 20 MG ONCE ONE 12/10 2030 DC 03 IV 12/10 Fentanyl Citrate 100 MCG .STK-MED ONE 12/11 0244 DC IM 12/11 0245 Heparin Sodium 5,000 UNIT Q8 12/11 1400 CAN (Porcine) SC Lactated Ringer's 500 ML .Q1H 12/11 0430 DC 12/11 IV 12/11 0529 0430 Lactated Ringer's 1,000 ML ONCE ONE 12/10 2315 DC IV 12/10 2316 Lactated Ringer's 1,000 ML .[id number] 12/10 2145 DC 12/10 IV 2150 Lactated Ringer's 1,000 ML .Q2H 12/10 2100 DC 12/10 IV 12/10 2259 2119 Lorazepam 50 MG Q24H 12/10 2345 12/11 Dextrose/Water 500 ML IV 0030 Lorazepam 1 MG ONCE ONE 12/10 1930 DC 12/10 IV 12/10 1931 1930 Lorazepam 0 .STK-MED ONE 12/10 1923 DC .ROUTE Lorazepam 0 .STK-MED ONE 12/10 1832 DC .ROUTE Lorazepam 1 MG ONCE ONE 12/10 1830 DC 12/10 IV 12/10 1831 1831 Morphine Sulfate 4 MG .STK-MED ONE 12/11 0244 DC IM 12/11 0245 Norepinephrine 8 MG Q7H 12/11 1030 AC 12/11 Dextrose/Water 250 ML IV 1054 Norepinephrine 4 MG Q3H 12/11 0630 DC 12/11 Dextrose/Water 250 ML IV 0706 Norepinephrine 4 MG .STK-MED ONE 12/10 2348 DC IV 12/10 2349 Norepinephrine 4 MG Q24H 12/10 2345 DC 12/11 Dextrose/Water 250 ML IV 12/11 0629 0156 Pantoprazole Sodium 40 MG Q24H 12/11 0315 AC 12/11 IV 0817 Phenylephrine HCl 80 MG Q7H 12/11 1030 AC 12/11 Dextrose/Water 250 ML IV 1054 Phenylephrine HCl 40 MG Q3H 12/11 0630 DC 12/11 Sodium Chloride 250 ML IV 0706 Phenylephrine HCl 40 MG Q24H 12/11 0300 CAN Dextrose/Water 250 ML IV Phenylephrine HCl 40 MG Q24H 12/11 0300 DC Sodium Chloride 250 ML IV 12/11 0629 Sodium Chloride 1,000 ML BOLUS ONE 12/10 1830 DC / IV 12/10 1929 1909 Sodium Chloride 1,000 ML BOLUS ONE 12/10 1830 DC / IV 12/10 1929 1909 Sodium Chloride 1,000 ML BOLUS ONE 12/10 1645 DC / IV 12/10 1744 1715 Succinylcholine 100 MG ONCE ONE 12/10 2030 DC 12/10 Chloride IV 12/10 Vancomycin HCl 1,000 MG ONCE ONE 12/11 0515 DC 12/11 Dextrose/Water 250 ML IV 12/11 0614 0620 Vancomycin HCl 1,000 MG ONCE ONE 12/10 2315 CAN Dextrose/Water 250 ML IV 12/11 0014 Vasopressin 40 UNITS Q16H 12/11 0530 AC 12/11 Sodium Chloride 100 ML IV 0621 Vecuronium Garn[place] 10 MG ONCE ONE 12/10 2030 DC 12/10 IV 12/10 Review of Systems Review of Systems Constitutional: Reports: no symptoms. Past History Travel History Traveled to [place] past 21 day No Medical History Blood Transfusion Hx: No Neurological: CEREBRAL PALSY EENT: NONE Cardiovascular: NONE Respiratory: NONE Gastrointestinal: NONE Hepatic: NONE Renal: NONE Musculoskeletal: NONE Psychiatric: NONE Endocrine: NONE Blood Disorders: NONE Cancer(s): NONE RELATIONSHIP CONSULTANT/Reproductive: NONE Surgical History Surgical History: non-contributory Psychosocial History Where Do You Live? Home Who Do You Live With? brother FER Smoking Status: Never Smoked ETOH Use: denies use Illicit Drug Use: denies illicit drug use Functional Ability ADLs Needs Assist: dressing, eating, toileting, bathing. Ambulation: independent Exam & Diagnostic Data Last 24 Hrs of Vital Signs/I&O Vital Signs Date Time Temp Pulse Resp B/P B/P Pulse O2 O2 Flow FiO2 Mean Ox Delivery Rate 12/11 1200 94 Ventilator 60% 12/11 1116 60 12/11 1054 115 97/70 12/11 0835 60 12/11 0800 98.7 112 24 102/0 98 Ventilator 60% 12/11 0800 98 Ventilator 60% 12/11 0706 110 24 90/63 12/11 0628 114 24 103/71 12/11 0544 60 12/11 0455 50 12/11 0400 91 Ventilator 50% 12/11 0251 50 12/11 0156 130 20 67/51 12/11 0124 50 03 0000 93 Ventilator 50% 12/11 0000 99.3 126 20 78/00 93 Ventilator 50% 12/10 2345 99.3 127 20 71/58 12/10 2340 93 Ventilator 50% 12/10 2240 50 12/10 2157 132 18 106/80 96 Ventilator 45% 12/10 2135 124 20 103/66 95 Ventilator 45% 12/10 2040 101.9 132 18 116/78 96 Ventilator 45% 12/10 2015 45 12/10 2009 148 26 134/80 95 Non 10L ReBreather 12/10 1915 98.0 150 28 128/78 95 Non 10L ReBreather 12/10 1845 99.0 144 25 118/70 95 Nasal Cannula 12/10 1800 92 Nasal 4.0L Cannula 12/10 1715 138 24 116/86 94 Nasal 4.0L Cannula 12/10 1645 102.0 134 26 124/70 92 Room Air Intake & Output 12/11 1600 12/11 0800 12/11 0000 Intake Total 3091 6000 Output Total 30 60 Balance 3061 5940 Intake, IV 3091 6000 Number 1 Bowel Movements Output, Urine 30 60 Patient 59.619 kg 60.328 kg Weight Weight Bed scale Bed scale Measurement Method Physical Exam General Appearance: well developed/nourished, sedated, intubated Head: atraumatic Eyes: Bilateral: PERRL. Ears, Nose, Throat: Intubated Neck: supple Respiratory: rhonchi, rales Cardiovascular: tachycardia Gastrointestinal: soft, non-tender Extremities: pedal edema Last 48 Hrs of Labs/Jae: Laboratory Tests 12/11/17 1230: pH 7.28 *L, pCO2 25 L, pO2 143 H, HCO3 11 L, ABG O2 Sat (Measured) 98.0, P-50 (Temp Corrected) N, Carboxyhemoglobin 0.1 L, O2 Concentration % 60%, Respiration Rate 24, O2 Delivery Method VENT, Vent Mode AC, Expiratory Pressure 5, Tidal Volume 450, Pressure Support 0, Phlebotomy Draw Site LEFT A-LINE 12/11/17 1050: Lactic Acid 5.3 H 12/11/17 0750: Troponin I 0.16 *H 12/11/17 0750: Lactic Acid 5.9 H 12/11/17 0455: pH 7.19 *L, pCO2 32 L, pO2 71 L, HCO3 12 L, ABG O2 Sat (Measured) 90.0 L, P- 50 (Temp Corrected) Y, Carboxyhemoglobin 0.3 L, O2 Concentration % 50%, Temperature 98.2, Respiration Rate 20, O2 Delivery Method ESPRIT, Vent Mode AC, Expiratory Pressure 5, Tidal Volume 450, Phlebotomy Draw Site KAYLA 12/11/17 0445: Lactic Acid 5.0 H 12/11/17 0445: Anion Gap 13, Estimated GFR 13 L, Glucose 145 H, Calcium 6.8 L, Phosphorus 5.1 H, Magnesium 1.6, Total Bilirubin 1.8 H, AST 108 H, ALT 64 H, Albumin 2.0 L, CBC w Diff NO MAN DIFF REQ, RBC 3.44 L, MCV 88.8, MCH 30.4, MCHC 34.3, RDW 14.7 H, MPV 9.5, Gran % 70.4, Lymphocytes % 4.5 L, Monocytes % 11.2 H, Eosinophils % 13.9 H, Basophils % 0, Absolute Granulocytes 9.3 H, Absolute Lymphocytes 0.6 L, Absolute Monocytes 1.5 H, Absolute Eosinophils 1.8, Absolute Basophils 0 12/11/17 0150: PT 13.9 H, INR 1.27 H, APTT 27, Fibrinogen Activity 861 H 12/11/17 0020: Anion Gap 11, Estimated GFR 13 L, Glucose 148 H, Lactic Acid 4.4 H, Calcium 7.0 L, Phosphorus 4.6 H, Magnesium 1.6, Total Bilirubin 1.3, AST 90 H, ALT 58 H, Troponin I 0.11 *H, Albumin 1.9 L, CBC w Diff MAN DIFF ORDERED, RBC 3.33 L , MCV 87.2, MCH 29.8, MCHC 34.2, RDW 14.1, MPV 9.5, Gran % 69.0, Lymphocytes % 3.4 L, Monocytes % 13.5 H, Eosinophils % 14.1 H, Basophils % 0, Absolute Granulocytes 4.7, Segmented Neutrophils 48, Band Neutrophils 8 H, Absolute Lymphocytes 0.2 L, Lymphocytes 14 L, Monocytes 21 H, Absolute Monocytes 0.9 H, Absolute Eosinophils 1.0, Absolute Basophils 0, Metamyelocytes 6 H, Myelocytes 3 H, Platelet Estimate VERIFIED BY SMEAR, Polychromasia 1+, Anisocytosis 1+, Monae Cells 1+ 12/10/17 2330: Troponin I Cancelled 12/10/170: pH 7.29 *L, pCO2 30 L, pO2 69 L, HCO3 14 L, ABG O2 Sat (Measured) 91.0 L, P- 50 (Temp Corrected) N, Carboxyhemoglobin 0.5 L, O2 Concentration % 45%, Temperature 99.0, Respiration Rate 20, O2 Delivery Method ESPRIT VENT, Vent Mode AC, Expiratory Pressure 5, Tidal Volume 450, Phlebotomy Draw Site RIGHT RADIAL 12/10/171944: pH 7.09 *L, pCO2 59 H, pO2 375 H, HCO3 17 L, ABG O2 Sat (Measured) 99.0, P-50 (Temp Corrected) N, Carboxyhemoglobin 0.3 L, O2 Concentration % 60%, Temperature 99.0, O2 Delivery Method PRB, Phlebotomy Draw Site RIGHT RADIAL 12/10/17 193: Lactic Acid Cancelled 12/10/17 1845: pH 7.23 *L, pCO2 44, pO2 82, HCO3 18 L, ABG O2 Sat (Measured) 90.0 L, P-50 ( Temp Corrected) Y, Carboxyhemoglobin 0.3 L, O2 Concentration % 4L, Temperature 102.0 H, O2 Delivery Method NC, Phlebotomy Draw Site RIGHT BRACHIAL 12/10/17 1830: Urinalysis LIGHT H, Urine Color YEL, Urine Clarity TURBD H, Urine pH 6.0, Ur Specific [place] 1.025, Urine Protein 100 H, Urine Ketones TRACE H, Urine Nitrite NEG, Urine Bilirubin SMALL H, Urine Urobilinogen 0.2, Ur Leukocyte Esterase SMALL H, Ur Microscopic SEDIMENT EXAMINED, Urine RBC 50-75 H, Urine WBC 3-5 H, Ur Epithelial Cells MANY H, Urine Bacteria MANY H, Hyaline Casts RARE H, Granular Casts MANY H, Urine Hemoglobin LARGE H, Urine Glucose NEG 12/10/17 1717: Anion Gap 16, Estimated GFR 10 L, BUN/Creatinine Ratio 23.6, Glucose 208 H, Lactic Acid 3.2 H, Calcium 6.9 L, Total Bilirubin 1.5 H, GGT 12, AST 107 H, ALT 64 H, Alkaline Phosphatase 106, Troponin I 0.04, Total Protein 4.9 L, Albumin 2.6 L, Globulin 2.3, Albumin/Globulin Ratio 1.1, CBC w Diff MAN DIFF ORDERED, RBC 3.91 L, MCV 87.9, MCH 29.4, MCHC 33.4, RDW 13.7, MPV 8.7, Gran % 87.7 H, Lymphocytes % 3.6 L, Monocytes % 8.7, Eosinophils % 0, Basophils % 0, Absolute Granulocytes 4.5, Segmented Neutrophils 57, Band Neutrophils 30 H, Absolute Lymphocytes 0.2 L, Lymphocytes 4 L, Monocytes 6, Absolute Monocytes 0.4, Absolute Eosinophils 0, Absolute Basophils 0, Metamyelocytes 3 H, Nucleated RBCs 1 H, Platelet Estimate VERIFIED BY SMEAR, Fld Total RBCs Counted 100 Microbiology 12/11 129 URINE ROUT: Legionella Antigen - COMP 12/11 129 URINE ROUT: Streptococcus pneumoniae Antigen (M - COMP Assessment/Plan CRCU Impression/Plan: This is a 57-year-old female with past medical history significant for cerebral palsy, comes in for chief complaint of weakness, chills, and vomiting. Upon evaluation she was found to meet criteria for septic shock given hypotension requiring max dose of pressors, bandemia, tachycardia and evidence of endorgan dysfunction. Subsequently her blood cultures are positive for gram-negative rods and gram-positive cocci, her CT of the abdomen showed evidence of severe left-sided hydronephrosis and possible calyceal rupture which warranted emergent OR intervention w/ left UPJ stent placement. Pt now admitted to ICU for further management. PLAN: Respiratory: Acute Hypoxic Respiratory Failure: Pt intubated on AC 20/450/60/5. CXR shows evidence of pulmonary edema. She was aggressively volume resuscitated given shock with about 7L of fluid. * Continue mechanical ventilation * Repeat ABG at 5 PM to re-evaluate settings. Last ABG showed bicarb 11 so rate was dropped from 24-->20. * Double concentrate pressors and avoid excess fluid administration. ID: Sepsis of urologic origin: Pt now growing bcx x2 + GNR and 1 + for GPC. Her CT abd/pelvis showed severe l.hydro and significant stranding with concern of pyelonephritis. She got one dose of ceftriaxone, zosyn and vancomycin. * Appreciate ID recs * Will start ceftriaxone 1g daily starting on 12/11/2017 * Monitor cultures for final speciation CARDIOVASCULAR: * Trending Trop/EKG; so far negative * F/U Echocardiogram to eval cardiac function HEME/ONC: Leukocytosis: Due to infxn. Con't monitor Normocytic Anemia: Hb 10.5. Came in 11.5. * Con't monitor Thrombocytopenia: Plt 28, she came in with 46. Likely secondary to sepsis. * Con't Monitor * NO chemical AC * DIC panel shows elevated fibrinogen on 861 ruling out DIC. METABOLIC Metabolic acidosis: If shock does not remit will consider dosing one dose of solucortef. However, would need to consider risk/benefit of worsening her underlying infection ALIMENTARY: NPO-Will need to address residential nutrition requirements * Q4 Fingerstick NEPHRO: EDIL: Pt came in with Cr 4.5 now at 3.6. Her BUN is 78. She has had significant renal injury due to hydro and calyceal disruption. UA with many granular cast and rare hyaline cast. * Con't monitor * avoid nephrotoxins NEURO: Cerebral palsy: baseline non verbal. DNR-Family does not want prolonged intubation or over aggressive measures. They would like for pt to be DNR but remain intubated at this time. Consult Acknowledgment - Thank you for your consult request. Matty Penaloza MD 12/11/17 1052: Assessment/Plan CRCU Other Findings/Comments: Matty Boateng M.D. have examined this patient, reviewed available EMR data, personally reviewed images, discussed with resident/PA/SALES REVIEW CLERK, discussed management plan with housestaff and nursing staff, discussed managment plan all of healthcare providers, discussed management plan with patient and/or family, agreed with resident/PA/SALES REVIEW CLERK. The past history and parts of the chart have been autopopulated. Impression 57-year-old woman with cerebral palsy and nonverbal at baseline * Septic shock secondary to infection of urological origin Plan Respiratory -abg noon -cont mechanical ventilation ID -ID consultation -f/u all cx CVS -monitor hemodynamics -double concentrate vasopressors Heme -monitor cbc, coags -ECHO Metabolic -monitor ins/outs -electrolytes, creatinine Alimentary -NPO Neuro -sedate if necessary TTS 45 min No escalation in goals of care per famliy meeting held this am with siblings. If no improvement, will plan for comfort measures. -urology appreciated, s/p stent - Consult Acknowledgment - Thank you for your consult request.
[2017-12-11 08:00] VITALS: BP 102/0
--- NOTE | 2017-12-11 09:15 | Operative Report ---
Operative/Inv Procedure Report Surgery Date: 12/11/17 Name of Procedure: Cystoscopy and insertion of L ureteral stent Pre-Operative Diagnosis: Urosepsis with obstructing stone at L UPJ and probable forniceal rupture Post-Operative Diagnosis: same Estimated Blood Loss: scant Surgeon/Water Pump Operator: Alyse Anesthesia: general endotracheal tube Drains: 24 cm, 6 burkinan L double J ureteral stent and 16 fr cerna Specimens: Urine for culture for bladder and L kidney Complications: none Condition: Critical Operative Indication: Urosepsis with obstructing stone at L UPJ Operative/Procedure Note Note: The patient was taken to the cystoscopy room and identified. After extensive evaluation and preparation by anesthesia she was placed on the cystoscopy table in the supine position. A time out was executed appropriately. After arterial line placement by anesthesia she was placed in the dorsal lithotomy position and prepped and draped in the usual fashion for cystoscopy. A surgical pause was executed appropriate. Of not the patient was hypotensive and on levophed and neosinephrine drips. The 22 burkinan cystoscope was placed in the bladder and urine collected for culture. The urine was cloudy. The bladder mucosa appeared inflammed consistent with cystitis. The left ureteral orifice was identified and an open ended catheter placed up the L ureter. Fluoroscopy shown the stone at the L UPJ with the catheter above it. A hydronephrotic drip was noted and urine from the L kidney sent for culture. A small amount of contrast was injected thru the catheter to outline the L renal collecting system. A guide wire was placed thru the catheter which was then removed. Under visual and fluoroscopic control a 6 burkinan, 24 cm double J stent (without a suture) was advanced over the wire. Fluoroscopy confirmed the proximal end of the stent to be in the L kidney and the distal end in the bladder. A 16 fr cerna was placed Findings: L hydronephrosis due to calculus at L UPJ and cloudy urine Discharge Disposition: Critical Care Unit Additional Comments: The patient was in very critical condition before, thru out and after the procedure
--- NOTE | 2017-12-11 10:51 | Cons- Infect Disease ---
General Information and HPI Consulting Request Date of Consult: 12/11/17 Requested By: Orestes Crespo MD Reason for Consult: Sepsis of urologic origin/positive blood cultures for gram-negative rods Exam Limitations: clinical condition History of Present Illness: This is a 57-year-old woman with a history of cerebral palsy admitted on December 10 with a several day history of increased fatigue, decreased po intake, decreased urine output, increased weakness, shaking chills and 1 episode of vomiting. On admission she was febrile to 102 with an initial blood pressure of 124/70. Laboratory data revealed a white blood cell count of 5000, with 57 segs and 30 bands, platelets 46,000, glucose 208, BUN/creatinine 106 and 4.5, lactic acid 3.2, bilirubin 1.5, AST/ALT 107 and 64, ABG 7.23/44/82 on 4 L/m. Urinalysis 50-75 RBCs/3-5 WBCs. Chest x-ray was negative. CT of the head was negative for any acute process. CT of the chest, abdomen and pelvis revealed a left-sided obstructive uropathy with an 8 mm obstructing calculus within the left UPJ, resulting in a severe left hydronephrosis; significant left-sided perinephric stranding with possible forniceal rupture; diffuse interlobular septal thickening and central vascular congestion with small bilateral pleural effusions, with left greater than right lower lobe consolidation. She was given 7 L of fluid in the emergency room, begun on Ceftriaxone and admitted to the ICU. She became hypotensive, requiring a left IJ, and she was begun on pressors. She was taken to the OR and underwent a cystoscopy with insertion of a left ureteral stent. Early this morning blood cultures 2 were reported positive for gram-negative rods, with 1 bottle also growng gram-positive cocci in chains. She was given 1 dose of Vancomycin and switched to Zosyn. She remains hypotensive, requiring 3 pressors and sedated, on the ventilator, requiring 60% oxygen. She does appear to have defervesced. She is nonverbal at baseline and is unable to provide any history. Allergies/Medications Allergies: Coded Allergies: No Known Allergies (12/10/17) Past History Travel History Traveled to [place] past 21 day No Medical History Blood Transfusion Hx: No Neurological: CEREBRAL PALSY EENT: NONE Cardiovascular: NONE Respiratory: NONE Gastrointestinal: NONE Hepatic: NONE Renal: NONE Musculoskeletal: NONE Psychiatric: NONE Endocrine: NONE Blood Disorders: NONE Cancer(s): NONE END MATCHER/Reproductive: NONE History of MRSA: No History of VRE: No History of CDIFF: No Isolation History: Standard Surgical History Surgical History: non-contributory Psychosocial History Where Do You Live? Home Who Do You Live With? brother FER Smoking Status: Never Smoked ETOH Use: denies use Illicit Drug Use: denies illicit drug use Functional Ability ADLs Needs Assist: dressing, eating, toileting, bathing. Ambulation: independent Review of Systems Comments Unobtainable Exam & Diagnostic Data Last 24 Hrs of Vital Signs/I&O Vital Signs Date Time Temp Pulse Resp B/P B/P Pulse O2 O2 Flow FiO2 Mean Ox Delivery Rate 12/11 0835 60 12/11 0800 98.7 112 24 102/0 98 Ventilator 60% 12/11 0800 98 Ventilator 60% 12/11 0706 110 24 90/63 12/11 0628 114 24 103/71 12/11 0544 60 12/11 0455 50 12/11 0400 91 Ventilator 50% 12/11 0251 50 12/11 0156 130 20 67/51 12/11 0124 50 12/11 0000 93 Ventilator 50% 12/11 0000 99.3 126 20 78/00 93 Ventilator 50% 12/10 2345 99.3 127 20 71/58 12/10 2340 93 Ventilator 50% 12/10 2240 50 12/10 2157 132 18 106/80 96 Ventilator 45% 12/10 2135 124 20 103/66 95 Ventilator 45% 12/10 2040 101.9 132 18 116/78 96 Ventilator 45% 12/10 2014 45 12/10 2009 148 26 134/80 95 Non 10L ReBreather 12/10 1915 98.0 150 28 128/78 95 Non 10L ReBreather 12/10 1845 99.0 144 25 118/70 95 Nasal Cannula 12/10 1800 92 Nasal 4.0L Cannula 12/10 1715 138 24 116/86 94 Nasal 4.0L Cannula 12/10 1645 102.0 134 26 124/70 92 Room Air Intake & Output 12/11 1600 12/11 0800 12/11 0000 Intake Total 3091 6000 Output Total 30 60 Balance 3061 5940 Intake, IV 3091 6000 Number 1 Bowel Movements Output, Urine 30 60 Patient 131 lb 133 lb Weight Weight Bed scale Bed scale Measurement Method Physical Exam Other Physical Findings: MAXIMUM TEMPERATURE 102. She is sedated, minimally responsive, on the ventilator. Skin reveals no rash. HEENT negative. Neck is supple with no adenopathy; left IJ triple-lumen catheter with no inflammation at the site; right EJ in place. Lungs scattered rhonchi bilaterally. Heart regular rhythm with no murmur. Abdomen is distended,, nontender with positive bowel sounds. Back no obvious CVA tenderness. Extremities no cyanosis, clubbing or edema. Neuro is without focality. William catheter is in place. Last 24 Hours of Lab Results: Laboratory Tests 12/11 12/11 12/11 12/11 12/11 1050 0750 0750 0455 0445 Blood Gas pH (7.35 - 7.45 PH) 7.19 *L pCO2 (35 - 45 TORR) 32 L pO2 (80 - 100 TORR) 71 L HCO3 (21 - 28 MEQ/L) 12 L ABG O2 Sat (Measured) (>96.0 %) 90.0 L P-50 (Temp Corrected) Y Carboxyhemoglobin (1.5 - 5.0 %) 0.3 L O2 Concentration % 50% Temperature (97.0 - 100.0 FARH) 98.2 Respiration Rate (BPM) 20 O2 Delivery Method ESPRIT Vent Mode AC Expiratory Pressure (CMH2O/P) 5 Tidal Volume (CC) 450 Chemistry Lactic Acid (0.7 - 2.1 mmol/L) Pending 5.9 H 5.0 H Troponin I (< 0.11 ng/ml) 0.16 *H Miscellaneous Phlebotomy Draw Site SCHLESWIG 12/11 12/11 0445 0150 Chemistry Sodium (137 - 145 mmol/L) 141 Potassium (3.5 - 5.1 mmol/L) 4.7 Chloride (98 - 107 mmol/L) 116 H Carbon Dioxide (22 - 30 mmol/L) 12 L Anion Gap (5 - 16) 13 BUN (7 - 17 mg/dL) 78 H Creatinine (0.5 - 1.0 mg/dL) 3.6 H Estimated GFR (>60 ml/min) 13 L Glucose (65 - 99 mg/dL) 145 H Calcium (8.4 - 10.2 mg/dL) 6.8 L Phosphorus (2.5 - 4.5 mg/dL) 5.1 H Magnesium (1.6 - 2.3 mg/dL) 1.6 Total Bilirubin (0.2 - 1.3 mg/dL) 1.8 H AST (14 - 36 U/L) 108 H ALT (9 - 52 U/L) 64 H Albumin (3.5 - 5.0 g/dL) 2.0 L Coagulation PT (9.4 - 12.5 SEC) 13.9 H INR (0.90 - 1.19) 1.27 H APTT (25 - 37 SEC) 27 Fibrinogen Activity (200 - 393 MG/DL) 861 H Hematology CBC w Diff NO MAN DIFF REQ WBC (4.8 - 10.8 /CUMM) 13.2 H RBC (4.20 - 5.40 /CUMM) 3.44 L Hgb (12.0 - 16.0 G/DL) 10.5 L Hct (37 - 47 %) 30.6 L MCV (81.0 - 99.0 FL) 88.8 MCH (27.0 - 31.0 PG) 30.4 MCHC (33.0 - 37.0 G/DL) 34.3 RDW (11.5 - 14.5 %) 14.7 H Plt Count (130 - 400 /CUMM) 28 *L MPV (7.4 - 10.4 FL) 9.5 Gran % (42.2 - 75.2 %) 70.4 Lymphocytes % (20.5 - 51.1 %) 4.5 L Monocytes % (1.7 - 9.3 %) 11.2 H Eosinophils % (0 - 5 %) 13.9 H Basophils % (0.0 - 2.0 %) 0 Absolute Granulocytes (1.4 - 6.5 /CUMM) 9.3 H Absolute Lymphocytes (1.2 - 3.4 /CUMM) 0.6 L Absolute Monocytes (0.10 - 0.60 /CUMM) 1.5 H Absolute Eosinophils (0.0 - 0.7 /CUMM) 1.8 Absolute Basophils (0.0 - 0.2 /CUMM) 0 12/11 02/12 0020 2330 Chemistry Sodium (137 - 145 mmol/L) 141 Potassium (3.5 - 5.1 mmol/L) 4.2 Chloride (98 - 107 mmol/L) 115 H Carbon Dioxide (22 - 30 mmol/L) 15 L Anion Gap (5 - 16) 11 BUN (7 - 17 mg/dL) 81 H Creatinine (0.5 - 1.0 mg/dL) 3.7 H Estimated GFR (>60 ml/min) 13 L Glucose (65 - 99 mg/dL) 148 H Lactic Acid (0.7 - 2.1 mmol/L) 4.4 H Calcium (8.4 - 10.2 mg/dL) 7.0 L Phosphorus (2.5 - 4.5 mg/dL) 4.6 H Magnesium (1.6 - 2.3 mg/dL) 1.6 Total Bilirubin (0.2 - 1.3 mg/dL) 1.3 AST (14 - 36 U/L) 90 H ALT (9 - 52 U/L) 58 H Troponin I (< 0.11 ng/ml) 0.11 *H Cancelled Albumin (3.5 - 5.0 g/dL) 1.9 L Hematology CBC w Diff MAN DIFF ORDERED WBC (4.8 - 10.8 /CUMM) 6.8 RBC (4.20 - 5.40 /CUMM) 3.33 L Hgb (12.0 - 16.0 G/DL) 9.9 L Hct (37 - 47 %) 29.0 L MCV (81.0 - 99.0 FL) 87.2 MCH (27.0 - 31.0 PG) 29.8 MCHC (33.0 - 37.0 G/DL) 34.2 RDW (11.5 - 14.5 %) 14.1 Plt Count (130 - 400 /CUMM) 23 *L MPV (7.4 - 10.4 FL) 9.5 Gran % (42.2 - 75.2 %) 69.0 Lymphocytes % (20.5 - 51.1 %) 3.4 L Monocytes % (1.7 - 9.3 %) 13.5 H Eosinophils % (0 - 5 %) 14.1 H Basophils % (0.0 - 2.0 %) 0 Absolute Granulocytes (1.4 - 6.5 /CUMM) 4.7 Segmented Neutrophils (42.2 - 75.2 %) 48 Band Neutrophils (0.0 - 5.0 %) 8 H Absolute Lymphocytes (1.2 - 3.4 /CUMM) 0.2 L Lymphocytes (20.5 - 51.1 %) 14 L Monocytes (1.7 - 9.3 %) 21 H Absolute Monocytes (0.10 - 0.60 /CUMM) 0.9 H Absolute Eosinophils (0.0 - 0.7 /CUMM) 1.0 Absolute Basophils (0.0 - 0.2 /CUMM) 0 Metamyelocytes (0.0 - 1.0 %) 6 H Myelocytes (0 - 0 %) 3 H Platelet Estimate (ADEQUATE) VERIFIED BY SMEAR Polychromasia 1+ Anisocytosis 1+ Monae Cells 1+ 12/10 193 Blood Gas pH (7.35 - 7.45 PH) 7.29 *L 7.09 *L pCO2 (35 - 45 TORR) 30 L 59 H pO2 (80 - 100 TORR) 69 L 375 H HCO3 (21 - 28 MEQ/L) 14 L 17 L ABG O2 Sat (Measured) (>96.0 %) 91.0 L 99.0 P-50 (Temp Corrected) N N Carboxyhemoglobin (1.5 - 5.0 %) 0.5 L 0.3 L O2 Concentration % 45% 60% Temperature (97.0 - 100.0 FARH) 99.0 99.0 Respiration Rate (BPM) 20 O2 Delivery Method ESPRIT VENT PRB Vent Mode AC Expiratory Pressure (CMH2O/P) 5 Tidal Volume (CC) 450 Chemistry Lactic Acid Cancelled Miscellaneous Phlebotomy Draw Site RIGHT RADIAL RIGHT RADIAL 12/10 12/10 1845 1830 Blood Gas pH (7.35 - 7.45 PH) 7.23 *L pCO2 (35 - 45 TORR) 44 pO2 (80 - 100 TORR) 82 HCO3 (21 - 28 MEQ/L) 18 L ABG O2 Sat (Measured) (>96.0 %) 90.0 L P-50 (Temp Corrected) Y Carboxyhemoglobin (1.5 - 5.0 %) 0.3 L O2 Concentration % 4L Temperature (97.0 - 100.0 FARH) 102.0 H O2 Delivery Method NC Miscellaneous Phlebotomy Draw Site RIGHT BRACHIAL Urines Urinalysis LIGHT H Urine Color (YEL,AMB,STR) YEL Urine Clarity (CLEAR) TURBD H Urine pH (5.0 - 8.0) 6.0 Ur Specific Morton (1.001 - 1.035) 1.025 Urine Protein (NEG,<30 MG/DL) 100 H Urine Ketones (NEG) TRACE H Urine Nitrite (NEG) NEG Urine Bilirubin (NEG) SMALL H Urine Urobilinogen (0.1 - 1.0 EU/dl) 0.2 Ur Leukocyte Esterase (NEG) SMALL H Ur Microscopic SEDIMENT EXAMINED Urine RBC (0 - 5 /HPF) 50-75 H Urine WBC (0 - 2 /HPF) 3-5 H Ur Epithelial Cells (NONE,FEW) MANY H Urine Bacteria (NEG/NONE) MANY H Hyaline Casts (0/LPF) RARE H Granular Casts (NONE /LPF) MANY H Urine Hemoglobin (NEG) LARGE H Urine Glucose (N MG/DL) NEG 12/10 1717 Chemistry Sodium (137 - 145 mmol/L) 138 Potassium (3.5 - 5.1 mmol/L) 4.5 Chloride (98 - 107 mmol/L) 101 Carbon Dioxide (22 - 30 mmol/L) 21 L Anion Gap (5 - 16) 16 BUN (7 - 17 mg/dL) 106 *H Creatinine (0.5 - 1.0 mg/dL) 4.5 H Estimated GFR (>60 ml/min) 10 L BUN/Creatinine Ratio (7 - 25 %) 23.6 Glucose (65 - 99 mg/dL) 208 H Lactic Acid (0.7 - 2.1 mmol/L) 3.2 H Calcium (8.4 - 10.2 mg/dL) 6.9 L Total Bilirubin (0.2 - 1.3 mg/dL) 1.5 H GGT (12 - 43 U/L) 12 AST (14 - 36 U/L) 107 H ALT (9 - 52 U/L) 64 H Alkaline Phosphatase (<127 U/L) 106 Troponin I (< 0.11 ng/ml) 0.04 Total Protein (6.3 - 8.2 g/dL) 4.9 L Albumin (3.5 - 5.0 g/dL) 2.6 L Globulin (1.9 - 4.2 gm/dL) 2.3 Albumin/Globulin Ratio (1.1 - 2.2 %) 1.1 Hematology CBC w Diff MAN DIFF ORDERED WBC (4.8 - 10.8 /CUMM) 5.1 RBC (4.20 - 5.40 /CUMM) 3.91 L Hgb (12.0 - 16.0 G/DL) 11.5 L Hct (37 - 47 %) 34.3 L MCV (81.0 - 99.0 FL) 87.9 MCH (27.0 - 31.0 PG) 29.4 MCHC (33.0 - 37.0 G/DL) 33.4 RDW (11.5 - 14.5 %) 13.7 Plt Count (130 - 400 /CUMM) 46 L MPV (7.4 - 10.4 FL) 8.7 Gran % (42.2 - 75.2 %) 87.7 H Lymphocytes % (20.5 - 51.1 %) 3.6 L Monocytes % (1.7 - 9.3 %) 8.7 Eosinophils % (0 - 5 %) 0 Basophils % (0.0 - 2.0 %) 0 Absolute Granulocytes (1.4 - 6.5 /CUMM) 4.5 Segmented Neutrophils (42.2 - 75.2 %) 57 Band Neutrophils (0.0 - 5.0 %) 30 H Absolute Lymphocytes (1.2 - 3.4 /CUMM) 0.2 L Lymphocytes (20.5 - 51.1 %) 4 L Monocytes (1.7 - 9.3 %) 6 Absolute Monocytes (0.10 - 0.60 /CUMM) 0.4 Absolute Eosinophils (0.0 - 0.7 /CUMM) 0 Absolute Basophils (0.0 - 0.2 /CUMM) 0 Metamyelocytes (0.0 - 1.0 %) 3 H Nucleated RBCs (0.0 - 0.0 /100WBC) 1 H Platelet Estimate (ADEQUATE) VERIFIED BY SMEAR Other Body Source Fld Total RBCs Counted (%) 100 Last 24 Hours of Jae Results: Blood cultures 2 December 10 positive for gram-negative rods, with one bottle also positive for gram-positive cocci in chains Urine culture December 10 greater than 100,000 colonies of gram-negative rods Urine strep pneumo antigen and Legionella antigen December 11 negative Sputum culture December 11 pending Urine culture 2 from the OR December 11 pending Diagnostic Data Recent Imaging Findings: Chest x-ray December 11 reveals diffuse perihilar opacities in both lungs, consistent with pulmonary edema CT of the chest, abdomen and pelvis December 10 revealed a left-sided obstructive uropathy with an 8 mm obstructing calculus within the left UPJ, resulting in a severe left hydronephrosis; significant left-sided perinephric stranding with possible forniceal rupture; diffuse interlobular septal thickening and central vascular congestion with small bilateral pleural effusions, with left greater than right lower lobe consolidation. CT of the head December 10 no acute process Assessment/Plan Assessment/Plan Impression: This is a 57-year-old woman with a history of cerebral palsy admitted on December 10 with a several day history of increased fatigue, decreased po intake, decreased urine output, increased weakness, shaking chills and 1 episode of vomiting, found to be febrile with bandemia, thrombocytopenia and renal failure, with the CT scan of the abdomen and pelvis revealing a left-sided obstructive uropathy, status post cystoscopy and placement of a left ureteral stent, with hypotension, requiring pressors, and with blood cultures positive for gram negative rods and gram-positive cocci in chains. Her clinical picture is consistent with sepsis of urologic origin. Her primary pathogen is likely Escherichia coli, with the urine culture positive for this pathogen. The gram-positive cocci may prove to be Enterococcus, but could also represent a contaminant and will await final cultures. She has received 1 dose of Vancomycin this morning which, given her renal failure, should provide adequate coverage for at least the next 24 hours. She remains critically ill, requiring pressors, but she is making urine and her bandemia has improved. Her elevated liver enzymes and thrombocytopenia are likely secondary to sepsis. Suggestion: 1. Follow-up final blood, OR and urine cultures 2. Discontinue Zosyn 3. Restart Ceftriaxone 1 g IV every 24 hours pending above Consult Acknowledgment - Thank you for your consult request.
--- NOTE | 2017-12-11 13:01 | ECHOCARDIOGRAM REPORT ---
JO THOMAS Age: 57 : 1960 Gender: F Exam Date: 12/11/2017 11:41 Exam Location: [facility] Ht (in): 65 Wt (lb): 131 BSA: 1.65 BP: 113 / 73 Ordering Physician: ANGEL LUIS Mackey Referring Physician: ANGEL LUIS Mackey Technologist: Ivan Ba [facility] Room Number: 103-1 Indications: HYPOTENSION Rhythm: Sinus Technical Quality: fair FINDINGS Left Ventricle Normal size left ventricle. Moderately abnormal left ventricular ejection fraction estimated at 30-35%. Right Ventricle Normal right ventricular size and function. Right Atrium Normal right atrial size. Left Atrium Normal left atrial size. Mitral Valve Mild mitral annular calcification. Trace to mild mitral regurgitation. Aortic Valve Aortic sclerosis. Tricuspid Valve Tricuspid valve is normal in structure and function. Mild-to- moderate tricuspid regurgitation. Right ventricular systolic pressure estimated to be at upper limits of normal at 28 mmHg. Pulmonic Valve Pulmonic valve not well visualized, grossly normal. Pericardium No pericardial effusion. Great Vessels Normal size aortic root. CONCLUSIONS Moderately reduced left venricular systolic function. Normal Right ventricular function without significant Pulmonary hypertension. No significant valvular abnormalities. Nimesh Rodriguez M.D. (Electronically Signed) Final Date: 11 December 2017 13:01 MEASUREMENTS (Male / Female) Normal Values 2D ECHO LV Diastolic Diameter PLAX 4.6 cm 4.2 - 5.9 / 3.9 - 5.3 cm LV Systolic Diameter PLAX 3.8 cm 2.1 - 4.0 cm LV Fractional Shortening PLAX 17.4 % 25 - 46 % LV Ejection Fraction 2D Teich 36.4 % IVS Diastolic Thickness 0.8 cm LVPW Diastolic Thickness 0.9 cm LV Relative Wall Thickness 0.4 RV Internal Dim ED PLAX 2.4 cm 1.9 - 3.8 cm LVOT Diameter 1.7 cm Aortic Root Diameter 2.8 cm LA Systolic Diameter LX 2.4 cm 3.0 - 4.0 / 2.7 - 3.8 cm DOPPLER AV Peak Velocity 108.0 cm/s AV Peak Gradient 4.7 mmHg AV Mean Velocity 77.9 cm/s AV Mean Gradient 3.0 mmHg AV Velocity Time Integral 17.2 cm LVOT Peak Velocity 65.8 cm/s LVOT Peak Gradient 1.7 mmHg LVOT Mean Velocity 45.2 cm/s LVOT Mean Gradient 1.0 mmHg LVOT Velocity Time Integral 10.2 cm LVOT Stroke Volume 23.2 cm AV Area Cont Eq vti 1.3 cm AV Area Cont Eq pk 1.4 cm MV Peak Velocity 95.1 cm/s MV Peak Gradient 3.6 mmHg MV Mean Velocity 61.1 cm/s MV Mean Gradient 2.0 mmHg Mitral E Point Velocity 66.7 cm/s Mitral A Point Velocity 88.3 cm/s Mitral E to A Ratio 0.8 MV PHT Velocity 84.2 cm/s MV Deceleration Tensas 285.0 cm/s MV Pressure Half Time 88.6 ms MV Area PHT 2.5 cm MV Deceleration Time 313.0 ms TR Peak Velocity 235.0 cm/s TR Peak Gradient 22.1 mmHg Right Atrial Pressure 5.0 mmHg Pulmonary Artery Systolic Pressu 27.1 mmHg Right Ventricular Systolic Press 27.1 mmHg PV Peak Velocity 84.1 cm/s PV Peak Gradient 2.8 mmHg PV Mean Velocity 52.9 cm/s PV Mean Gradient 1.0 mmHg PV Velocity Time Integral 14.0 cm LV E' Lateral Velocity 8.8 cm/s Mitral E to LV E' Lateral Ratio 7.6 LV E' Septal Velocity 5.3 cm/s Mitral E to LV E' Septal Ratio 12.7
[2017-12-11 16:00] VITALS: BP 104/0
[2017-12-11 17:07] LABS: ABSOLUTE BASOPHIL COUNT 0 /CUMM (0.0-0.2); ABSOLUTE EOSINOPHIL COUNT 1.1 /CUMM (0.0-0.7); ABSOLUTE GRANULOCYTE CT 14.6 /CUMM (1.4-6.5); ABSOLUTE MONOCYTE COUNT 0.2 /CUMM (0.10-0.60); BASOPHIL % 0 % (0.0-2.0); EOSINOPHIL % 6.3 % (0-5); GRANULOCYTE % 86.7 % (42.2-75.2); HEMATOCRIT 32.8 % (37-47); MEAN CORPUSCULAR HGB CONC 34.6 G/DL (33.0-37.0); MEAN CORPUSCULAR VOLUME 86.6 FL (81.0-99.0); MEAN PLATELET VOLUME 8.9 FL (7.4-10.4); RBC DISTRIBUTION WIDTH 14.4 % (11.5-14.5); RED BLOOD CELL CT 3.79 /CUMM (4.20-5.40); WHITE BLOOD CELL COUNT 16.9 /CUMM (4.8-10.8)
[2017-12-11 17:11] LABS: PLATELET COUNT 19 /CUMM (130-400)
--- NOTE | 2017-12-11 20:18 | Event Note ---
Event Note Event Note: I spoke with both brothers of Ms. Crow regarding the patient's declining platelets and the potential need for transfusion. There is a consent for transfusion in chart and I let family know that it allowed me to transfuse as necessary. Tom, the older brother, stated that he did not want any aggressive intervention or escalation of care at time including transfusion of platelets. I informed him of risks of spontaneous bleeding etc if her platelets continue to drop and he verbalized understanding of the risks. Other brother was at bedside with patient when I informed him. He seemed to be in reluctant agreement with Tom. I told them that because I will not be undertaking any intervention if her plt continue to decrease I will not do CBC until routine labs the next morning. If pt's condition were to decline or change in any significant way, the family would immediately be informed and the team would proceed accordingly. She continues to be DNR and family does not want aggressive interventions.
[2017-12-12 05:38] LABS: ABSOLUTE BASOPHIL COUNT 0 /CUMM (0.0-0.2); ABSOLUTE EOSINOPHIL COUNT 0.4 /CUMM (0.0-0.7); ABSOLUTE LYMPH COUNT 0.9 /CUMM (1.2-3.4); ABSOLUTE MONOCYTE COUNT 0.1 /CUMM (0.10-0.60); BASOPHIL % 0 % (0.0-2.0); EOSINOPHIL % 1.9 % (0-5); GRANULOCYTE % 93.5 % (42.2-75.2); HEMATOCRIT 32.9 % (37-47); MEAN CORPUSCULAR HGB CONC 34.1 G/DL (33.0-37.0); MEAN CORPUSCULAR VOLUME 87.9 FL (81.0-99.0); MEAN PLATELET VOLUME 10.5 FL (7.4-10.4); RBC DISTRIBUTION WIDTH 14.2 % (11.5-14.5); RED BLOOD CELL CT 3.74 /CUMM (4.20-5.40); WHITE BLOOD CELL COUNT 22.5 /CUMM (4.8-10.8)
[2017-12-12 05:57] LABS: PLATELET COUNT 16 /CUMM (130-400)
--- NOTE | 2017-12-12 07:11 | PN- Resident CRCU ---
Estelita CASTILLO,Jaydon 12/12/17 0710: Subjective HPI/CRCU Issues: Patient seen and examined. She is seen laying in bed with her head elevated intubated on a ventilator with upper extremity restraints. She appears comfortable and in no acute distress. Subjective complaints and review of systems are unobtainable. Objective Vital Signs & I&O Last 8 Hrs of Vitals and I&O: HR 102-110 O2 96-97% RR 12-24 SBP 110-122/ DBP 70-87 Exam General Appearance: comfortable, sedated, intubated Other Physical Findings: GEN: thin, ill appearing middle aged woman intubated/sedated on ventilator, NAD HEENT: NCAT, MMM, ET/OG tube CARD: Normal S1/S2 w/o m/g/r; tachycardic PULM: Scattered basilar rhonchi ABD: Soft, NT, ND, BS+ : William catheter draining dark yellow urine NEURO: Sedated EXT: Normal pulses, bilateral upper extremity soft restraints Current Medications: Current Medications Sig/Dayday Start time Last Medication Dose Route Stop Time Status Admin Artificial Tears 2 GTT TID 12/11 1600 12/11 OPH 2233 Ceftriaxone Sodium 1,000 MG DAILY 12/12 1000 AC IV Ceftriaxone Sodium 1,000 MG DAILY 12/11 1300 DC IV Dextrose 25 GM .STK-MED ONE 12/12 0007 DC IV 12/12 0008 Dextrose 12.5 GM ONCE ONE 12/11 2345 DC 12/12 IV 12/11 2346 0009 Dextrose/Lactated 1,000 ML Q6H 12/11 0430 DC Ringer's IV Lactated Ringer's 1,000 ML .[id number] 12/10 2145 OK 12/10 IV 2150 Lorazepam 1 MG Q4P PRN 12/11 1500 12/12 IV 0250 Lorazepam 50 MG Q24H 12/10 2345 OK 12/11 Dextrose/Water 500 ML IV 0030 Norepinephrine 8 MG Q7H 12/11 1030 12/12 Dextrose/Water 250 ML IV 0816 Norepinephrine 4 MG Q3H 12/11 0630 DC 12/11 Dextrose/Water 250 ML IV 0706 Pantoprazole Sodium 40 MG Q24H 12/11 0315 12/12 IV 0231 Phenylephrine HCl 80 MG Q7H 12/11 1030 12/12 Dextrose/Water 250 ML IV 0611 Phenylephrine HCl 40 MG Q3H 12/11 0630 DC 12/11 Sodium Chloride 250 ML IV 0706 Vasopressin 40 UNITS Q16H 12/11 1500 AC 12/12 Sodium Chloride 100 ML IV 0610 Vasopressin 40 UNITS Q16H 12/11 0530 DC 12/11 Sodium Chloride 100 ML IV 12/11 1459 0650 Impression/Plan Impression/Problem List Impression: 57 year old non-verbal woman with significant past medical history of cerebral palsy seen for evaluation of altered mental status, weakness, and vomiting. CT abdomen/pelvis identified obstructive uropathy with severe hydronephrosis with perinephric stranding concerning for pyelonephritis versus forniceal rupture. Patient remains afebrile but with worsening leukocytosis while on intravenous ceftriaxone for her gram negative sepsis of urologic origin. Creatinine is improving but remains at 3.5. Platelets remain low without any evidence of bleeding. Lactic acid is improving but remains at 3.4, CVP is > 13 and IVF are not running. SBP is around 120 on levophed, vasopression, and neosynephrine; the latter is being tapered off. Echocardiogram demonstrated a reduced LVEF of 30-35 % without any documented wall motion abnormalities. OR urine cultures demonstrate growth of gram positive cocci which vancomycin was dosed. Urology recommendations pending. Problem List -Severe Sepsis or Urologic Origin, improving -Obstructive left sided uropathy with hydronephrosis s/p stent -Metabolic acidosis, improving -Elevated lactic acid, improving -Acute Kidney Injury, improving -Acute Hypoxic Respiratory Failure -Hyperbilirubinemia, improving -Transaminitis, improving -Thrombocytopenia, stable -History of Cerebral palsy Plan -ICU Care -Avoid Nephrotoxic agents / NSAIDS -Accuchecks Q4H -Intubated -RIJ TLC / William Catheter / OGT -Levophed / Neosynephrine / Vasopressin: titrate to MAP > 65 -Protonix 40 mg IV Daily -Ceftriaxone 1 g IV Daily -Vancomycin 1g, dose daily -Ativan 1 mg IV Q4H PRN sedation -Urology consult for obstructive uropathy -ID consult for antibiotic recommendations -Follow cultures & sensitivities -UCx: GNR, GPC -Type & Cross -Daily LFTs, CMP, CBC, ABG, CXR -Trend lactic acid until normal -NPO -DVT PPx with ALPS -DNR, patients brother Tom is conservator Problem List: 1. Sepsis Pain Ratin Tomorrow's Labs & Rationales: CBC, BMP ABG, CXR Matty Penaloza MD 12/12/17 1104: Impression/Plan Plan DVT/Prophylaxis: mechanical, pharmacological (thrombocytopenia) Attending MD Review Statement Attending Sign Off Attending Cosign Statement: I have: examined this patient, reviewed avalbl EMR data, personally reviewd images, discussd w/resident/PA/CRANBERRY BOG SUPERVISOR, discussed mgmt plan w/angéliac, discussed mgmt plan w/CM, discussed mgmt plan w/pt, agreed w/resident/PA/CRANBERRY BOG SUPERVISOR, amended to note. Other Findings: I, Matty Penaloza M.D. have examined this patient, reviewed available EMR data, personally reviewed images, discussed with resident/PA/CRANBERRY BOG SUPERVISOR, discussed management plan with housestaff and nursing staff, discussed managment plan all of healthcare providers, discussed management plan with patient and/or family, agreed with resident/PA/CRANBERRY BOG SUPERVISOR. The past history and parts of the chart have been autopopulated. Impression 57-year-old woman with cerebral palsy and nonverbal at baseline * Septic shock secondary to infection of urological origin Plan Respiratory -cont mechanical ventilation ID -ID consultation appreciated -f/u all cx CVS -monitor hemodynamics -double concentrated vasopressors -MAP 60 goal Heme -monitor cbc, coags Metabolic -monitor ins/outs -electrolytes, creatinine Alimentary -NPO Neuro -sedate if necessary TTS 40 min No escalation in goals of care per famliy meeting. No HD, etc. If no improvement, will plan for comfort measures. -urology appreciated, s/p stent
[2017-12-12 08:00] VITALS: BP 108/82
--- NOTE | 2017-12-12 11:28 | PN- Infect Dx ---
Subjective Subjective: Afebrile. She remains on 3 pressors, though they are being weaned. Objective Last 24 Hrs of Vital Signs/I&O Vital Signs Date Time Temp Pulse Resp B/P B/P Pulse O2 O2 Flow FiO2 Mean Ox Delivery Rate 12/12 0816 103 112/75 12/12 0815 35 12/12 0800 98.8 96 20 108/82 97 Ventilator 35% 12/12 0800 97 Ventilator 35% 12/12 0610 105 21 113/81 12/12 0547 35 12/12 0325 35 12/12 0038 35 12/12 0010 110 23 115/73 12/11 2352 96 Ventilator 35% 12/11 2327 96 Ventilator 35% 12/11 2201 35 12/11 1912 35 12/11 1749 115 106/71 12/11 1621 40 12/11 1600 99.1 112 2 104/0 96 Ventilator 50% 12/11 1600 96 Ventilator 50% 12/11 1402 Ventilator 50% 12/11 1328 50 12/11 1200 94 Ventilator 60% 12/11 1116 60 Intake & Output 12/12 1600 12/12 0800 12/12 0000 Intake Total 484 Output Total 230 370 Balance -230 114 Intake, IV 484 Number 4 5 Bowel Movements Output, 50 Gastric Drainage Output, Urine 230 320 Patient 132 lb 132 lb Weight Weight Bed scale Measurement Method Physical Exam Other Physical Findings: She is sedated and unresponsive on the ventilator Neck left IJ triple lumen catheter with no inflammation at the site Lungs are clear Neck regular rhythm with no murmur Abdomen is soft, with no obvious tenderness, positive bowel sounds Extremities no cyanosis, clubbing or edema William catheter remains in place Results Last 24 Hours of Lab Results: Laboratory Tests 12/12 12/12 12/11 0915 0430 2230 Chemistry Sodium (137 - 145 mmol/L) 141 Potassium (3.5 - 5.1 mmol/L) 4.4 Chloride (98 - 107 mmol/L) 114 H Carbon Dioxide (22 - 30 mmol/L) 13 L Anion Gap (5 - 16) 14 BUN (7 - 17 mg/dL) 81 H Creatinine (0.5 - 1.0 mg/dL) 3.2 H Estimated GFR (>60 ml/min) 15 L Glucose (65 - 99 mg/dL) 101 H Lactic Acid (0.7 - 2.1 mmol/L) 3.0 H 3.4 H Calcium (8.4 - 10.2 mg/dL) 7.6 L Phosphorus (2.5 - 4.5 mg/dL) 3.7 Magnesium (1.6 - 2.3 mg/dL) 1.8 Total Bilirubin (0.2 - 1.3 mg/dL) 2.6 H AST (14 - 36 U/L) 889 H ALT (9 - 52 U/L) 623 H Troponin I (< 0.11 ng/ml) 0.28 *H 0.31 *H Albumin (3.5 - 5.0 g/dL) 2.1 L Hematology CBC w Diff MAN DIFF ORDERED WBC (4.8 - 10.8 /CUMM) 22.5 H RBC (4.20 - 5.40 /CUMM) 3.74 L Hgb (12.0 - 16.0 G/DL) 11.2 L Hct (37 - 47 %) 32.9 L MCV (81.0 - 99.0 FL) 87.9 MCH (27.0 - 31.0 PG) 30.0 MCHC (33.0 - 37.0 G/DL) 34.1 RDW (11.5 - 14.5 %) 14.2 Plt Count (130 - 400 /CUMM) 16 *L MPV (7.4 - 10.4 FL) 10.5 H Gran % (42.2 - 75.2 %) 93.5 H Lymphocytes % (20.5 - 51.1 %) 4.0 L Monocytes % (1.7 - 9.3 %) 0.6 L Eosinophils % (0 - 5 %) 1.9 Basophils % (0.0 - 2.0 %) 0 Absolute Granulocytes (1.4 - 6.5 /CUMM) 21.0 H Segmented Neutrophils (42.2 - 75.2 %) 83 H Band Neutrophils (0.0 - 5.0 %) 6 H Absolute Lymphocytes (1.2 - 3.4 /CUMM) 0.9 L Lymphocytes (20.5 - 51.1 %) 10 L Monocytes (1.7 - 9.3 %) 1 L Absolute Monocytes (0.10 - 0.60 /CUMM) 0.1 Absolute Eosinophils (0.0 - 0.7 /CUMM) 0.4 Absolute Basophils (0.0 - 0.2 /CUMM) 0 Nucleated RBCs (0.0 - 0.0 /100WBC) 1 H Platelet Estimate (ADEQUATE) DECREASED Polychromasia 1+ Poikilocytosis 1+ Ovalocytes 1+ Monae Cells FEW Other Body Source Fld Total RBCs Counted (%) 100 12/11 12/11 12/11 2230 2100 1745 Blood Gas pH (7.35 - 7.45 PH) 7.29 *L pCO2 (35 - 45 TORR) 24 L pO2 (80 - 100 TORR) 108 H HCO3 (21 - 28 MEQ/L) 11 L ABG O2 Sat (Measured) (>96.0 %) 97.0 P-50 (Temp Corrected) Y Carboxyhemoglobin (1.5 - 5.0 %) 0.1 L O2 Concentration % 40% Temperature (97.0 - 100.0 FARH) 99.1 Respiration Rate (BPM) 20 O2 Delivery Method VENT Vent Mode CMV Expiratory Pressure (CMH2O/P) 5 Tidal Volume (CC) 450 Chemistry Lactic Acid (0.7 - 2.1 mmol/L) 3.9 H Cancelled Miscellaneous Phlebotomy Draw Site [place] 12/11 12/11 1610 1230 Blood Gas pH (7.35 - 7.45 PH) 7.28 *L pCO2 (35 - 45 TORR) 25 L pO2 (80 - 100 TORR) 143 H HCO3 (21 - 28 MEQ/L) 11 L ABG O2 Sat (Measured) (>96.0 %) 98.0 P-50 (Temp Corrected) N Carboxyhemoglobin (1.5 - 5.0 %) 0.1 L O2 Concentration % 60% Respiration Rate (BPM) 24 O2 Delivery Method VENT Vent Mode AC Expiratory Pressure (CMH2O/P) 5 Tidal Volume (CC) 450 Pressure Support (CMH2O/P) 0 Chemistry Sodium (137 - 145 mmol/L) 141 Potassium (3.5 - 5.1 mmol/L) 4.6 Chloride (98 - 107 mmol/L) 113 H Carbon Dioxide (22 - 30 mmol/L) 13 L Anion Gap (5 - 16) 15 BUN (7 - 17 mg/dL) 78 H Creatinine (0.5 - 1.0 mg/dL) 3.6 H Estimated GFR (>60 ml/min) 13 L Glucose (65 - 99 mg/dL) 102 H Lactic Acid (0.7 - 2.1 mmol/L) 4.5 H Calcium (8.4 - 10.2 mg/dL) 7.3 L Phosphorus (2.5 - 4.5 mg/dL) 4.2 Magnesium (1.6 - 2.3 mg/dL) 1.6 Total Bilirubin (0.2 - 1.3 mg/dL) 2.6 H AST (14 - 36 U/L) 966 H ALT (9 - 52 U/L) 544 H Troponin I (< 0.11 ng/ml) 0.29 *H Albumin (3.5 - 5.0 g/dL) 2.1 L Hematology CBC w Diff MAN DIFF ORDERED WBC (4.8 - 10.8 /CUMM) 16.9 H RBC (4.20 - 5.40 /CUMM) 3.79 L Hgb (12.0 - 16.0 G/DL) 11.4 L Hct (37 - 47 %) 32.8 L MCV (81.0 - 99.0 FL) 86.6 MCH (27.0 - 31.0 PG) 30.0 MCHC (33.0 - 37.0 G/DL) 34.6 RDW (11.5 - 14.5 %) 14.4 Plt Count (130 - 400 /CUMM) 19 *L MPV (7.4 - 10.4 FL) 8.9 Gran % (42.2 - 75.2 %) 86.7 H Lymphocytes % (20.5 - 51.1 %) 5.7 L Monocytes % (1.7 - 9.3 %) 1.3 L Eosinophils % (0 - 5 %) 6.3 H Basophils % (0.0 - 2.0 %) 0 Absolute Granulocytes (1.4 - 6.5 /CUMM) 14.6 H Segmented Neutrophils (42.2 - 75.2 %) 73 Band Neutrophils (0.0 - 5.0 %) 10 H Absolute Lymphocytes (1.2 - 3.4 /CUMM) 1.0 L Lymphocytes (20.5 - 51.1 %) 8 L Monocytes (1.7 - 9.3 %) 2 Absolute Monocytes (0.10 - 0.60 /CUMM) 0.2 Eosinophils (0 - 5.0 %) 4 Absolute Eosinophils (0.0 - 0.7 /CUMM) 1.1 Absolute Basophils (0.0 - 0.2 /CUMM) 0 Metamyelocytes (0.0 - 1.0 %) 2 H Myelocytes (0 - 0 %) 1 H Nucleated RBCs (0.0 - 0.0 /100WBC) 2 H Platelet Estimate (ADEQUATE) DECREASED Poikilocytosis 1+ Monae Cells FEW Miscellaneous Phlebotomy Draw Site LEFT A-LINE Last 24 Hours of Jae Results: Blood cultures 2 positive for Enterococcus, Escherichia coli and Proteus, with sensitivities pending Urine culture December 10 greater than 100,000 colonies of Escherichia coli sensitive to all antibiotics Urine culture 2 December 11 from the OR positive for Enterococcus and gram negative rods Assessment/Plan ID Impression: Remains critically ill, on pressors, though they are being weaned, and ventilator dependent, though her oxygen requirements have decreased. She appears to have defervesced but her white blood cell count is increased, though with decreased bands, on Vancomycin and Ceftriaxone for sepsis of urologic origin, status post cystoscopy and placement of a left ureteral stent early yesterday morning. Her blood and urine cultures are growing Enterococcus and 2 types of gram-negative rods and her current antibiotic regimen can be continued pending final cultures. Her thrombocytopenia persists, as do her elevated liver enzymes, presumably secondary to sepsis. Her renal function has improved slightly, with improving urine output. Suggestion: 1. Follow-up final blood and urine cultures 2. Re-dose with Vancomycin 1 g IV 1 today pending above 3. Continue Ceftriaxone
[2017-12-12 16:00] VITALS: BP 98/72
[2017-12-12 23:00] VITALS: BP 100/70
[2017-12-13 05:51] LABS: ABSOLUTE BASOPHIL COUNT 0 /CUMM (0.0-0.2); ABSOLUTE EOSINOPHIL COUNT 0 /CUMM (0.0-0.7); ABSOLUTE GRANULOCYTE CT 23.2 /CUMM (1.4-6.5); ABSOLUTE LYMPH COUNT 1.2 /CUMM (1.2-3.4); ABSOLUTE MONOCYTE COUNT 0.5 /CUMM (0.10-0.60); BASOPHIL % 0 % (0.0-2.0); EOSINOPHIL % 0.2 % (0-5); GRANULOCYTE % 93.1 % (42.2-75.2); HEMATOCRIT 29.6 % (37-47); MEAN CORPUSCULAR HGB 29.6 PG (27.0-31.0); MEAN CORPUSCULAR HGB CONC 33.9 G/DL (33.0-37.0); MEAN CORPUSCULAR VOLUME 87.2 FL (81.0-99.0); MEAN PLATELET VOLUME 10.3 FL (7.4-10.4); RBC DISTRIBUTION WIDTH 14.4 % (11.5-14.5); WHITE BLOOD CELL COUNT 24.9 /CUMM (4.8-10.8)
[2017-12-13 06:12] LABS: PLATELET COUNT 17 /CUMM (130-400)
--- NOTE | 2017-12-13 07:03 | PN- Resident CRCU ---
Estelita CASTILLO,Jaydon 12/13/17 0703: Subjective HPI/CRCU Issues: Patient seen and examined. She is seen lying in bed with her head elevated with multiple lines and restraints in place. She appears comfortable and in no acute distress. Subjective complaints and review of systems are unobtainable. Objective Vital Signs & I&O Last 8 Hrs of Vitals and I&O: HR 90s-100s SBP 94-110 O2 90-100% on 35% FiO2 RR 20 Tele NSR Exam General Appearance: comfortable, sedated, intubated Other Physical Findings: GEN: thin, ill appearing middle aged woman intubated/sedated on ventilator, NAD HEENT: NCAT, MMM, ET/OG tube CARD: Normal S1/S2 w/o m/g/r; tachycardic PULM: Scattered basilar rhonchi ABD: Soft, NT, ND, BS+ : William catheter draining dark yellow urine NEURO: Sedated EXT: Normal pulses, bilateral upper extremity soft restraints Current Medications: Current Medications Sig/Dayday Start time Last Medication Dose Route Stop Time Status Admin Ampicillin 2,000 MG Q8 12/12 1400 CAN Sodium Chloride 100 ML IV Artificial Tears 2 GTT TID 12/11 1600 AC 12/12 OPH 2125 Ceftriaxone Sodium 1,000 MG DAILY 12/12 1000 AC 12/12 IV 0937 Lorazepam 1 MG Q4P PRN 12/11 1500 AC 12/12 IV 0250 Norepinephrine 8 MG Q9H 12/13 1100 AC Dextrose/Water 250 ML IV Norepinephrine 8 MG Q7H 12/11 1030 AC 12/13 Dextrose/Water 250 ML IV 12/13 1059 0342 Pantoprazole Sodium 40 MG Q24H 12/11 0315 AC 12/13 IV 0409 Phenylephrine HCl 80 MG Q7H 12/11 1030 DC 12/12 Dextrose/Water 250 ML IV 0611 Vancomycin HCl 1,000 MG ONCE ONE 12/12 1100 DC 12/12 Dextrose/Water 250 ML IV 12/12 1159 1304 Vasopressin 40 UNITS Q16H 12/13 1100 AC Sodium Chloride 100 ML IV Vasopressin 40 UNITS Q16H 12/11 1500 AC 12/12 Sodium Chloride 100 ML IV 12/13 1059 1036 Impression/Plan Impression/Problem List Impression: 57 year old non-verbal woman with significant past medical history of cerebral palsy seen for evaluation of altered mental status, weakness, and vomiting. CT abdomen/pelvis identified obstructive uropathy with severe hydronephrosis with perinephric stranding concerning for pyelonephritis versus forniceal rupture. Patient continues to remain afebrile but has worsening leukocytosis with bandemia. Vancomycin was dosed in addition to ceftriaxone for growth of enterococcus which was found to be sensitive to ampicillin which was started and ceftriaxone discontinued. Lactic acid has normalized. Creatinine is improving. Ventilator is on minimal settings. Neosynephrine was tapered off with levophed at 12 mcg. Vasopressin still running. LFT remain elevated. Her left upper extremity appears swollen today for which a doppler study was ordered. She appears to have developed a oral herpetic rash today. Problem List -Severe Sepsis or Urologic Origin, improving -Obstructive left sided uropathy with hydronephrosis s/p stent -Metabolic acidosis, resolved -Elevated lactic acid, resolved -Acute Kidney Injury, improving -Acute Hypoxic Respiratory Failure s/p intubation -Hyperbilirubinemia, improving -Transaminitis, improving -Thrombocytopenia, stable -History of Cerebral palsy Plan -ICU Care -Avoid Nephrotoxic agents / NSAIDS -Accuchecks Q4H -Intubated, on Vent: VT 450, FiO2 35%, RR 20, PEEP 5 -[facility] TLC / William Catheter / OGT -Levophed / Vasopressin: titrate to MAP > 65 -Neosynephrine tapered off -Protonix 40 mg IV Daily -Ceftriaxone discontinued -Ampicillin 2 g IV Q8H started -Ativan 1 mg IV Q4H PRN sedation -Urology consult for obstructive uropathy -ID consult for antibiotic recommendations -Follow cultures & sensitivities -UCx: E coli, Proteus, Enterococcus -Type & Cross -Daily LFTs, CMP, CBC, ABG, CXR -NPO -DVT PPx with ALPS -DNR, patients brother Tom is conservator Problem List: 1. Sepsis Pain Ratin Tomorrow's Labs & Rationales: See assessment Plan DVT/Prophylaxis: mechanical, pharmacological (thrombocytopenia) Matty Penaloza MD 12/13/17 1033: Attending MD Review Statement Attending Sign Off Attending Cosign Statement: I have: examined this patient, reviewed [facility] EMR data, personally reviewd images, discussd w/resident/PA/ROOM SERVICE WAITER, discussed mgmt plan w/angélica, discussed mgmt plan w/CM, discussed mgmt plan w/pt, agreed w/resident/PA/ROOM SERVICE WAITER, amended to note. Other Findings: Matty Boateng M.D. have examined this patient, reviewed available EMR data, personally reviewed images, discussed with resident/PA/ROOM SERVICE WAITER, discussed management plan with housestaff and nursing staff, discussed managment plan all of healthcare providers, discussed management plan with patient and/or family, agreed with resident/PA/ROOM SERVICE WAITER. The past history and parts of the chart have been autopopulated. Impression 57-year-old woman with cerebral palsy and nonverbal at baseline * Septic shock secondary to infection of urological origin Plan Respiratory -cont mechanical ventilation ID -ID consultation appreciated -f/u all cx CVS -monitor hemodynamics -double concentrated vasopressors -MAP 60 goal Heme -monitor cbc, coags Metabolic -monitor ins/outs -electrolytes, creatinine Alimentary -NPO Neuro -sedate if necessary TTS 35 min Previous information: No escalation in goals of care per famliy meeting. No HD, etc. If no improvement, will plan for comfort measures. -urology appreciated, s/p stent
[2017-12-13 08:00] VITALS: BP 98/70
--- NOTE | 2017-12-13 08:38 | RADIOLOGY REPORT ---
EXAMINATION: XR PORTABLE CHEST [facility]. Intubated on vent. COMPARISON: Chest x-ray dated 12/11/2017, 12/10/2017. TECHNIQUE: Portable AP semierect view of the chest was obtained. FINDINGS: Endotracheal tube is in place with tip approximately 4.2 cm above the channing, unchanged from prior exam. Enteric tube courses into the abdomen and the tip projects in region of the stomach. There is a left-sided central venous line in place with tip at the cavoatrial junction, similar to prior exam. Multiple EKG leads overlie the chest obscuring assessment. The cardiomediastinal silhouette is within normal limits in size. As noted previously, diffuse increased reticular opacities are seen in the lungs, likely similar to the previous exam though evaluation of the left lung is limited due to overlying artifact. No significant pleural effusion or pneumothorax is seen. There is a mild convex right thoracolumbar scoliosis, possibly positional. Bony structures are otherwise unremarkable. IMPRESSION: 1. Endotracheal tube tip 4.2 cm above channing. 2. Enteric tube projects over the region of the stomach. 3. Left-sided central venous line tip in the cavoatrial junction. 4. Diffuse reticular opacities in the lungs, likely similar to previous exam though evaluation of left lung is limited as discussed above. Findings may be related to diffuse pulmonary edema or a diffuse viral or atypical pneumonitis. Clinical correlation requested.
--- NOTE | 2017-12-13 10:57 | PN- Infect Dx ---
Subjective Subjective: Afebrile. Her blood pressure has improved, now on Levophed alone. Objective Last 24 Hrs of Vital Signs/I&O Vital Signs Date Time Temp Pulse Resp B/P B/P Pulse O2 O2 Flow FiO2 Mean Ox Delivery Rate 12/13 0947 35 12/13 0800 97.9 90 20 98/70 96 Ventilator 35% 12/13 0800 96 Ventilator 35% 12/13 0557 35 12/13 0400 94 Ventilator 25% 12/13 0342 96 20 98/70 12/13 0331 35 12/13 0109 35 12/13 0000 98 Ventilator 35% 12/12 2300 97.6 97 22 100/70 99 Ventilator 35% 12/12 2221 35 12/12 2127 98 20 107/80 12/12 2000 98 Ventilator 35% 12/12 1925 35 12/12 1624 35 12/12 1600 98 Ventilator 35% 12/12 1600 99.5 96 20 98/72 98 Ventilator 35% 12/12 1348 35 12/12 1200 96 Ventilator 35% 12/12 1121 35 Intake & Output 12/13 1600 12/13 0800 12/13 0000 Intake Total 268 360 Output Total 525 410 Balance -257 -50 Intake, IV 268 360 Number 0 Bowel Movements Output, 50 10 Gastric Drainage Output, Urine 475 400 Patient 127 lb Weight Weight Bed scale Measurement Method Physical Exam Other Physical Findings: She is minimally responsive, sedated, on the ventilator Neck left IJ triple lumen catheter with no inflammation at the site HEENT vesicles on the lip Lungs bilateral rhonchi Heart regular rhythm with no murmur Abdomen is soft, no obvious tenderness, positive bowel sounds Extremities left upper extremity swelling compared to the right upper extremity William catheter remains in place Results Last 24 Hours of Lab Results: Laboratory Tests 12/13 12/13 0430 0423 Blood Gas pH (7.35 - 7.45 PH) 7.41 pCO2 (35 - 45 TORR) 24 L pO2 (80 - 100 TORR) 100 HCO3 (21 - 28 MEQ/L) 15 L ABG O2 Sat (Measured) (>96.0 %) 97.0 P-50 (Temp Corrected) Y Carboxyhemoglobin (1.5 - 5.0 %) 0.3 L O2 Concentration % 35% Temperature (97.0 - 100.0 FARH) 97.1 Respiration Rate (BPM) 20 O2 Delivery Method ESPRIT Vent Mode AC Expiratory Pressure (CMH2O/P) 5 Tidal Volume (CC) 450 Chemistry Sodium (137 - 145 mmol/L) 144 Potassium (3.5 - 5.1 mmol/L) 3.9 Chloride (98 - 107 mmol/L) 114 H Carbon Dioxide (22 - 30 mmol/L) 19 L Anion Gap (5 - 16) 12 BUN (7 - 17 mg/dL) 75 H Creatinine (0.5 - 1.0 mg/dL) 2.5 H Estimated GFR (>60 ml/min) 20 L Glucose (65 - 99 mg/dL) 118 H Lactic Acid (0.7 - 2.1 mmol/L) 1.7 Calcium (8.4 - 10.2 mg/dL) 7.7 L Phosphorus (2.5 - 4.5 mg/dL) 3.3 Magnesium (1.6 - 2.3 mg/dL) 2.0 Total Bilirubin (0.2 - 1.3 mg/dL) 2.9 H AST (14 - 36 U/L) 855 H ALT (9 - 52 U/L) 706 H Albumin (3.5 - 5.0 g/dL) 2.0 L Hematology CBC w Diff MAN DIFF ORDERED WBC (4.8 - 10.8 /CUMM) 24.9 H RBC (4.20 - 5.40 /CUMM) 3.40 L Hgb (12.0 - 16.0 G/DL) 10.1 L Hct (37 - 47 %) 29.6 L MCV (81.0 - 99.0 FL) 87.2 MCH (27.0 - 31.0 PG) 29.6 MCHC (33.0 - 37.0 G/DL) 33.9 RDW (11.5 - 14.5 %) 14.4 Plt Count (130 - 400 /CUMM) 17 *L MPV (7.4 - 10.4 FL) 10.3 Gran % (42.2 - 75.2 %) 93.1 H Lymphocytes % (20.5 - 51.1 %) 4.9 L Monocytes % (1.7 - 9.3 %) 1.8 Eosinophils % (0 - 5 %) 0.2 Basophils % (0.0 - 2.0 %) 0 Absolute Granulocytes (1.4 - 6.5 /CUMM) 23.2 H Segmented Neutrophils (42.2 - 75.2 %) 75 Band Neutrophils (0.0 - 5.0 %) 18 H Absolute Lymphocytes (1.2 - 3.4 /CUMM) 1.2 Lymphocytes (20.5 - 51.1 %) 5 L Monocytes (1.7 - 9.3 %) 1 L Absolute Monocytes (0.10 - 0.60 /CUMM) 0.5 Absolute Eosinophils (0.0 - 0.7 /CUMM) 0 Absolute Basophils (0.0 - 0.2 /CUMM) 0 Metamyelocytes (0.0 - 1.0 %) 1 Nucleated RBCs (0.0 - 0.0 /100WBC) 1 H Platelet Estimate (ADEQUATE) VERIFIED BY SMEAR Normocytic RBCs VERIFIED Normochromic RBCs VERIFIED Miscellaneous Phlebotomy Draw Site RIGHT RADIAL 12/12 12/12 12/12 1800 1515 1215 Chemistry Lactic Acid (0.7 - 2.1 mmol/L) 2.3 H 2.3 H 2.7 H Last 24 Hours of Jae Results: Blood cultures 2 December 10 positive for alpha strep, Enterococcus sensitive to Ampicillin, Escherichia coli sensitive to all antibiotics tested and Proteus sensitive to all antibiotics tested Urine culture December 10 greater than 100,000 colonies of Escherichia coli sensitive to all antibiotics, approximately 40,000 colonies of Proteus sensitive to all antibiotics and Enterococcus sensitive to Ampicillin Sputum culture December 10 positive for Enterococcus Urine culture 2 from the OR December 11 positive for Enterococcus and Escherichia coli sensitive to all antibiotics tested Recent Imaging Studies: Chest x-ray December 13 reveals diffuse reticular opacities in both lungs Assessment/Plan ID Impression: Remains critically ill, though improving, now on Levophed alone, with temperatures normal though white blood cell count continues to increase, with increased bands, and platelets remain quite low on Vancomycin and Ceftriaxone Day 3 of treatment for sepsis of urologic origin secondary to Enterococcus, Escherichia coli and Proteus status post cystoscopy and placement of a left ureteral stent 2 days ago. With her increasing white count/bands may need to rule out ongoing obstruction/occlusion of the recently placed stent; therefore repeat imaging may be appropriate. Her antibiotics can be adjusted based on her final cultures. Her chest x-ray is suggestive of fluid overload, and she is 10 L ahead, but her renal function is improving. Her left upper extremity swelling is noted and may need to rule out a DVT with her left IJ triple-lumen catheter in place. 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 Suggestion: 1. Doppler of the left upper extremity 2. Urology follow-up 3. Consider renal ultrasound or repeat CT to evaluate left hydronephrosis 4. Topical treatment to her lip lesions 5. Discontinue Ceftriaxone 6. Begin Ampicillin 2 g IV every 8 hours
[2017-12-13 16:00] VITALS: BP 98/68
--- NOTE | 2017-12-13 18:39 | PN- Urology ---
Subjective Subjective: Intubate and sedated. No acute distress. Pressors being tapered WBC increasing and platelets remain very low creatinine slowly improving Objective Vital Signs and I&Os Vital Signs Date Time Temp Pulse Resp B/P B/P Pulse O2 O2 Flow FiO2 Mean Ox Delivery Rate 12/13 1644 30 12/13 1600 97 Ventilator 35% 12/13 1600 98.3 84 20 98/68 98 Ventilator 35% 12/13 1435 35 12/13 1215 35 12/13 1200 97 Ventilator 35% 12/13 1108 96 99/67 12/13 0947 35 12/13 0800 97.9 90 20 98/70 96 Ventilator 35% 12/13 0800 96 Ventilator 35% 12/13 0557 35 12/13 0400 94 Ventilator 25% 12/13 0342 96 20 98/70 12/13 0331 35 12/13 0109 35 12/13 0000 98 Ventilator 35% 12/12 2300 97.6 97 22 100/70 99 Ventilator 35% 12/12 2221 35 12/12 2127 98 20 107/80 12/13 1999 98 Ventilator 35% 12/12 1925 35 Intake & Output 12/13 1600 12/13 0800 12/13 0000 12/12 1600 12/12 0800 12/12 0000 Intake Total 328 268 360 680 484 Output Total 500 525 410 550 230 370 Balance -172 -257 -50 130 -230 114 Intake, IV 328 268 360 680 484 Number 1 0 1 4 5 Bowel Movements Output, 0 50 10 0 50 Gastric Drainage Output, Urine 500 475 400 550 230 320 Patient 127 lb 132 lb 132 lb Weight Weight Bed scale Bed scale Measurement Method Abd: soft and non tender Genitalia: cerna in place draining clear urine Laboratory Tests 12/13 12/13 0430 0423 Blood Gas pH (7.35 - 7.45 PH) 7.41 pCO2 (35 - 45 TORR) 24 L pO2 (80 - 100 TORR) 100 HCO3 (21 - 28 MEQ/L) 15 L ABG O2 Sat (Measured) (>96.0 %) 97.0 P-50 (Temp Corrected) Y Carboxyhemoglobin (1.5 - 5.0 %) 0.3 L O2 Concentration % 35% Temperature (97.0 - 100.0 FARH) 97.1 Respiration Rate (BPM) 20 O2 Delivery Method ESPRIT Vent Mode AC Expiratory Pressure (CMH2O/P) 5 Tidal Volume (CC) 450 Chemistry Sodium (137 - 145 mmol/L) 144 Potassium (3.5 - 5.1 mmol/L) 3.9 Chloride (98 - 107 mmol/L) 114 H Carbon Dioxide (22 - 30 mmol/L) 19 L Anion Gap (5 - 16) 12 BUN (7 - 17 mg/dL) 75 H Creatinine (0.5 - 1.0 mg/dL) 2.5 H Estimated GFR (>60 ml/min) 20 L Glucose (65 - 99 mg/dL) 118 H Lactic Acid (0.7 - 2.1 mmol/L) 1.7 Calcium (8.4 - 10.2 mg/dL) 7.7 L Phosphorus (2.5 - 4.5 mg/dL) 3.3 Magnesium (1.6 - 2.3 mg/dL) 2.0 Total Bilirubin (0.2 - 1.3 mg/dL) 2.9 H AST (14 - 36 U/L) 855 H ALT (9 - 52 U/L) 706 H Albumin (3.5 - 5.0 g/dL) 2.0 L Hematology CBC w Diff MAN DIFF ORDERED WBC (4.8 - 10.8 /CUMM) 24.9 H RBC (4.20 - 5.40 /CUMM) 3.40 L Hgb (12.0 - 16.0 G/DL) 10.1 L Hct (37 - 47 %) 29.6 L MCV (81.0 - 99.0 FL) 87.2 MCH (27.0 - 31.0 PG) 29.6 MCHC (33.0 - 37.0 G/DL) 33.9 RDW (11.5 - 14.5 %) 14.4 Plt Count (130 - 400 /CUMM) 17 *L MPV (7.4 - 10.4 FL) 10.3 Gran % (42.2 - 75.2 %) 93.1 H Lymphocytes % (20.5 - 51.1 %) 4.9 L Monocytes % (1.7 - 9.3 %) 1.8 Eosinophils % (0 - 5 %) 0.2 Basophils % (0.0 - 2.0 %) 0 Absolute Granulocytes (1.4 - 6.5 /CUMM) 23.2 H Segmented Neutrophils (42.2 - 75.2 %) 75 Band Neutrophils (0.0 - 5.0 %) 18 H Absolute Lymphocytes (1.2 - 3.4 /CUMM) 1.2 Lymphocytes (20.5 - 51.1 %) 5 L Monocytes (1.7 - 9.3 %) 1 L Absolute Monocytes (0.10 - 0.60 /CUMM) 0.5 Absolute Eosinophils (0.0 - 0.7 /CUMM) 0 Absolute Basophils (0.0 - 0.2 /CUMM) 0 Metamyelocytes (0.0 - 1.0 %) 1 Nucleated RBCs (0.0 - 0.0 /100WBC) 1 H Platelet Estimate (ADEQUATE) VERIFIED BY SMEAR Normocytic RBCs VERIFIED Normochromic RBCs VERIFIED Miscellaneous Phlebotomy Draw Site RIGHT RADIAL Assessment/Plan Assessment/Plan Imp: 1. Urosepsis due to UTI and obstructing stone at the L UPJ 2. s/p L ureteral stent insertion 3, Contined leukocytosis and thrombocytopenia Plan: 1. Continue supportive care 2. abx per ID 3. If WBC count continues to rise and aggressive care to be pursued then would consider CT of abd and pelvis without IV contrast to r/o development of retroperitoneal abscess
--- NOTE | 2017-12-13 20:02 | ULTRASOUND REPORT ---
EXAMINATION: DUPLEX DOPPLER UPPER EXTREMITY, left CLINICAL INFORMATION: Edema, swelling COMPARISON: None. TECHNIQUE: Duplex Doppler performed of left upper extremity deep veins with grayscale, color Doppler and spectral Doppler examination. Exam was done portable. The exam is limited. Patient was intubated. Triple-lumen catheter in the left IJ and there are bandages over the left side of the neck. FINDINGS: There is no evidence of deep vein thrombosis. Normal vascular flow is seen in the visualized portions of the subclavian vein, axillary vein, brachial vein, basilic vein, cephalic vein and antecubital vein. IMPRESSION: No evidence of deep vein thrombosis left upper extremity.
[2017-12-14] VITALS: BP 108/80
[2017-12-14 05:41] LABS: ABSOLUTE BASOPHIL COUNT 0 /CUMM (0.0-0.2); ABSOLUTE EOSINOPHIL COUNT 0 /CUMM (0.0-0.7); ABSOLUTE GRANULOCYTE CT 22.9 /CUMM (1.4-6.5); ABSOLUTE MONOCYTE COUNT 0.3 /CUMM (0.10-0.60); BASOPHIL % 0 % (0.0-2.0); EOSINOPHIL % 0.1 % (0-5); GRANULOCYTE % 94.7 % (42.2-75.2); HEMATOCRIT 29.2 % (37-47); MEAN CORPUSCULAR HGB 29.8 PG (27.0-31.0); MEAN CORPUSCULAR VOLUME 87.6 FL (81.0-99.0); MEAN PLATELET VOLUME 9.8 FL (7.4-10.4); RBC DISTRIBUTION WIDTH 14.7 % (11.5-14.5); RED BLOOD CELL CT 3.33 /CUMM (4.20-5.40); WHITE BLOOD CELL COUNT 24.2 /CUMM (4.8-10.8)
[2017-12-14 06:01] LABS: PLATELET COUNT 26 /CUMM (130-400)
--- NOTE | 2017-12-14 07:15 | PN- Resident CRCU ---
Estelita CASTILLO,Jaydon 12/14/17 0714: Subjective HPI/CRCU Issues: Patient seen and examined. She is seen lying in bed with her head elevated intubated with multiple lines in place. She appears to be comfortable and in no acute distress. Subjective complaints and review of systems are unobtainable. Objective Vital Signs & I&O Last 8 Hrs of Vitals and I&O: TMAX 99.0 SBP 90s-110s Tele NSR, HR 70s/80s Exam General Appearance: comfortable, intubated Other Physical Findings: GEN: thin, ill appearing middle aged woman intubated/sedated on ventilator, NAD HEENT: NCAT, MMM, ET/OG tube, vesilcular oral lesions CARD: Normal S1/S2 w/o m/g/r; tachycardic PULM: Scattered basilar rhonchi ABD: Soft, NT, ND, BS+ : William catheter draining dark yellow urine NEURO: Spontaneous movement of all your extremities EXT: Normal pulses, bilateral upper extremity soft restraints Current Medications: Current Medications Sig/Dayday Start time Last Medication Dose Route Stop Time Status Admin Ampicillin 2,000 MG Q8 12/13 1400 AC 12/14 Sodium Chloride 100 ML IV 0607 Artificial Tears 2 GTT TID 12/11 1600 AC 12/14 OPH 1001 Dextrose/Water 1,000 ML ONCE ONE 12/14 1215 UNir IV 12/15 0814 Lorazepam 1 MG Q4P PRN 12/11 1500 AC 12/12 IV 0250 Norepinephrine 8 MG Q14H 12/14 2000 AC Dextrose/Water 250 ML IV Norepinephrine 8 MG Q9H 12/13 1100 AC 12/14 Dextrose/Water 250 ML IV 12/14 1959 0607 Pantoprazole Sodium 40 MG Q24H 12/11 0315 AC 12/14 IV 0352 Petrolatum 1 MAGDALENA DAILY AC PRN 12/13 1130 AC 12/13 TOP 1417 Potassium Chloride 40 MEQ BID 12/14 1210 UNVr PO 12/14 2201 Vasopressin 40 UNITS Q16H 12/13 1100 DC Sodium Chloride 100 ML IV Impression/Plan Impression/Problem List Impression: 57 year old non-verbal woman with significant past medical history of cerebral palsy seen for evaluation of altered mental status, weakness, and vomiting. CT abdomen/pelvis identified obstructive uropathy with severe hydronephrosis with perinephric stranding concerning for pyelonephritis versus forniceal rupture. Patient continues to have improving sepsis / UTI while on Ampicillin. She remains afebrile with persistent leukocytosis but resolution of her bandemia. Creatinnie continues to improve. Sodium was mildly elevated today for which gentle IV hydration with free water was started; she does however remain is positive fluid balance with otherwise adequate urine output. She remains on minimal doses of levophed for blood pressure support. Left upper extremity US was unremarkable yesterday, her arm appears less swollen today. She remains intubated on minimal vent settings, she will be trialed when her infection is almost resolved. Her ABG demonstrates respiratory alkalosis for which her respiratory rate was lowered to 14 from 20. Potassium was repleted. She should be followed off of sedation, however ativan should be used if she becomes agitated. Platelets are beginning to improve. Tube feeds are started. Problem List -Severe Sepsis or Urologic Origin, improving -Obstructive left sided uropathy with hydronephrosis s/p stent -Metabolic acidosis, resolved -Elevated lactic acid, resolved -Acute Kidney Injury, improving -Acute Hypoxic Respiratory Failure s/p intubation -Hyperbilirubinemia, improving -Transaminitis, improving -Thrombocytopenia, stable -History of Cerebral palsy Plan -ICU Care -Avoid Nephrotoxic agents / NSAIDS -Accuchecks Q4H -Intubated, on Vent: VT 450, FiO2 35%, 14 RR , PEEP 5 -LIJ TLC / William Catheter / OGT -Levophed: titrate to MAP > 65 -D5W @ 50mL/hr x1 bag -Protonix 40 mg IV Daily -Ampicillin 2 g IV Q8H -Ativan 1 mg IV Q4H PRN sedation -Urology following for obstructive uropathy -ID following for antibiotic recommendations -Follow cultures & sensitivities -UCx: E coli, Proteus, Enterococcus -Type & Cross -Daily CMP, CBC, ABG, CXR -NPO, starting tube feeds -DVT PPx with ALPS -DNR, patients brother Tom is conservator Problem List: 1. Sepsis Pain Ratin Tomorrow's Labs & Rationales: See assessment Plan DVT/Prophylaxis: mechanical, pharmacological (thrombocytopenia) Matty Penaloza MD 12/14/17 1401: Attending MD Review Statement Attending Sign Off Attending Cosign Statement: I have: examined this patient, reviewed avalbl EMR data, personally reviewd images, discussd w/resident/PA/[employer] HELPER MACHINE, discussed mgmt plan w/angélica, discussed mgmt plan w/CM, discussed mgmt plan w/pt, agreed w/resident/PA/[employer] HELPER MACHINE, amended to note. Other Findings: Matty Boateng M.D. have examined this patient, reviewed available EMR data, personally reviewed images, discussed with resident/PA/[employer] HELPER MACHINE, discussed management plan with housestaff and nursing staff, discussed managment plan all of healthcare providers, discussed management plan with patient and/or family, agreed with resident/PA/[employer] HELPER MACHINE. The past history and parts of the chart have been autopopulated. Impression 57-year-old woman with cerebral palsy and nonverbal at baseline * Septic shock secondary to infection of urological origin - E.Coli/Enterococcus Plan Respiratory -cont mechanical ventilation ID -ID consultation appreciated -cont abx per ID -f/u all cx CVS -monitor hemodynamics -titrate pressors as tolerated -MAP 65 goal Heme -monitor cbc, coags Metabolic -monitor ins/outs -electrolytes, creatinine Alimentary -begin tube feeding, free water flushes for hyponatremia Neuro -sedate if necessary TTS 35 min
--- NOTE | 2017-12-14 07:16 | RADIOLOGY REPORT ---
EXAMINATION: XR PORTABLE CHEST CLINICAL INFORMATION: [facility] COMPARISON: Chest x-ray 12/13/2017 TECHNIQUE: Portable frontal view of the chest was obtained. The lung apices are excluded from today's examination. FINDINGS: Endotracheal tube in stable position terminating 3 cm above the level of the channing. Enteric tube terminates well below the level of the diaphragm. Incompletely visualized left-sided venous catheter is unchanged in orientation with the tip terminating within the right atrium. Similar low lung volumes. Diffuse bilateral reticular opacities are stable. Patchy opacity involving primarily the left lung base is stable. No gross pleural effusion. IMPRESSION: Stable examination. Lung apices not included in today's examination.
[2017-12-14 08:00] VITALS: BP 110/76
--- NOTE | 2017-12-14 10:26 | PN- Infect Dx ---
Subjective Subjective: Eyebrow. Her blood pressure is improved, with decreasing pressors. She has been more responsive. Objective Last 24 Hrs of Vital Signs/I&O Vital Signs Date Time Temp Pulse Resp B/P B/P Pulse O2 O2 Flow FiO2 Mean Ox Delivery Rate 12/14 0830 30 12/14 0756 Ventilator 30% 12/14 0632 30 12/14 0607 80 20 104/77 12/14 0400 99 Ventilator 30% 12/14 0341 30 12/14 0047 30 12/14 0000 98 Ventilator 30% 12/14 0000 97.9 78 20 108/80 98 Ventilator 30% 12/13 2208 30 12/13 2058 98.7 80 20 109/81 12/13 2000 98 Ventilator 30% 12/13 1932 30 12/13 1644 30 12/13 1600 97 Ventilator 35% 12/13 1600 98.3 84 20 98/68 98 Ventilator 35% 12/13 1435 35 12/13 1215 35 12/13 1200 97 Ventilator 35% 12/13 1108 96 99/67 Intake & Output 12/14 1600 12/14 0800 12/14 0000 Intake Total 232 280 Output Total 635 675 Balance -403 -395 Intake, IV 232 280 Number 0 Bowel Movements Output, 75 Gastric Drainage Output, Urine 560 675 Patient 127 lb Weight Weight Bed scale Measurement Method Physical Exam Other Physical Findings: She is minimally responsive on the ventilator Neck left IJ triple-lumen catheter with no inflammation at the site Lungs scattered rhonchi Heart regular rhythm with no murmur Abdomen is soft, with no obvious tenderness, positive bowel sounds Extremities 1+ edema of all extremities William catheter remains in place Results Last 24 Hours of Lab Results: Laboratory Tests 12/14 12/14 0755 0510 Blood Gas pH (7.35 - 7.45 PH) 7.49 H pCO2 (35 - 45 TORR) 23 L pO2 (80 - 100 TORR) 111 H HCO3 (21 - 28 MEQ/L) 17 L ABG O2 Sat (Measured) (>96.0 %) 97.0 P-50 (Temp Corrected) Y Carboxyhemoglobin (1.5 - 5.0 %) 0.7 L O2 Concentration % 30% Temperature (97.0 - 100.0 FARH) 97.3 Respiration Rate (BPM) 20 O2 Delivery Method ESPRIT Vent Mode AC Expiratory Pressure (CMH2O/P) 5 Tidal Volume (CC) 450 Chemistry Sodium (137 - 145 mmol/L) 151 H Potassium (3.5 - 5.1 mmol/L) 3.3 L Chloride (98 - 107 mmol/L) 118 H Carbon Dioxide (22 - 30 mmol/L) 22 Anion Gap (5 - 16) 11 BUN (7 - 17 mg/dL) 62 H Creatinine (0.5 - 1.0 mg/dL) 1.5 H Estimated GFR (>60 ml/min) 36 L BUN/Creatinine Ratio (7 - 25 %) 41.3 H Miscellaneous Phlebotomy Draw Site RIGHT RADIAL 12/14 2985 Chemistry Sodium (137 - 145 mmol/L) 151 H Potassium (3.5 - 5.1 mmol/L) 3.2 L Chloride (98 - 107 mmol/L) 119 H Carbon Dioxide (22 - 30 mmol/L) 21 L Anion Gap (5 - 16) 11 BUN (7 - 17 mg/dL) 64 H Creatinine (0.5 - 1.0 mg/dL) 1.5 H Estimated GFR (>60 ml/min) 36 L Glucose (65 - 99 mg/dL) 124 H Calcium (8.4 - 10.2 mg/dL) 7.6 L Phosphorus (2.5 - 4.5 mg/dL) 2.6 Magnesium (1.6 - 2.3 mg/dL) 2.1 Total Bilirubin (0.2 - 1.3 mg/dL) 2.3 H AST (14 - 36 U/L) 707 H ALT (9 - 52 U/L) 728 H Albumin (3.5 - 5.0 g/dL) 2.1 L Hematology CBC w Diff MAN DIFF ORDERED WBC (4.8 - 10.8 /CUMM) 24.2 H RBC (4.20 - 5.40 /CUMM) 3.33 L Hgb (12.0 - 16.0 G/DL) 9.9 L Hct (37 - 47 %) 29.2 L MCV (81.0 - 99.0 FL) 87.6 MCH (27.0 - 31.0 PG) 29.8 MCHC (33.0 - 37.0 G/DL) 34.0 RDW (11.5 - 14.5 %) 14.7 H Plt Count (130 - 400 /CUMM) 26 *L MPV (7.4 - 10.4 FL) 9.8 Gran % (42.2 - 75.2 %) 94.7 H Lymphocytes % (20.5 - 51.1 %) 4.1 L Monocytes % (1.7 - 9.3 %) 1.1 L Eosinophils % (0 - 5 %) 0.1 Basophils % (0.0 - 2.0 %) 0 Absolute Granulocytes (1.4 - 6.5 /CUMM) 22.9 H Segmented Neutrophils (42.2 - 75.2 %) 92 H Band Neutrophils (0.0 - 5.0 %) 1 Absolute Lymphocytes (1.2 - 3.4 /CUMM) 1.0 L Lymphocytes (20.5 - 51.1 %) 5 L Monocytes (1.7 - 9.3 %) 1 L Absolute Monocytes (0.10 - 0.60 /CUMM) 0.3 Absolute Eosinophils (0.0 - 0.7 /CUMM) 0 Basophils (0.0 - 2.0 %) 1 Absolute Basophils (0.0 - 0.2 /CUMM) 0 Platelet Estimate (ADEQUATE) DECREASED Normochromic RBCs VERIFIED Poikilocytosis 1+ Ovalocytes 1+ Other Body Source Fld Total RBCs Counted (%) 100 Last 24 Hours of Jae Results: Doppler of the left upper extremity December 13 negative Recent Imaging Studies: Chest x-ray December 14 slightly decreased opacities in the left lung Assessment/Plan ID Impression: Gradual improvement continues, on decreasing pressors, with temperatures remaining normal, white blood cell count still elevated, though with decreased bands, increasing platelets and improving Renal function now on Ampicillin Day 4 of treatment for sepsis of urologic origin secondary to Enterococcus, Escherichia coli and Proteus, status post cystoscopy and placement of a left ureteral stent 3 days ago. Urology follow-up noted and appreciated. Her increased sodium is noted and will need to be corrected. Suggestion: 1. Correct hyponatremia 2. Continue Ampicillin
[2017-12-14 16:00] VITALS: BP 100/70
[2017-12-15] VITALS: BP 100/68
[2017-12-15 04:20] LABS: ABSOLUTE EOSINOPHIL COUNT 0 /CUMM (0.0-0.7); EOSINOPHIL % 0.1 % (0-5); MEAN PLATELET VOLUME 9.5 FL (7.4-10.4)
[2017-12-15 04:32] LABS: ABSOLUTE BASOPHIL COUNT 0 /CUMM (0.0-0.2); ABSOLUTE GRANULOCYTE CT 21.8 /CUMM (1.4-6.5); ABSOLUTE LYMPH COUNT 0.9 /CUMM (1.2-3.4); ABSOLUTE MONOCYTE COUNT 0.1 /CUMM (0.10-0.60); BASOPHIL % 0.1 % (0.0-2.0); GRANULOCYTE % 95.4 % (42.2-75.2); HEMATOCRIT 27.9 % (37-47); MEAN CORPUSCULAR HGB 29.6 PG (27.0-31.0); MEAN CORPUSCULAR HGB CONC 33.9 G/DL (33.0-37.0); MEAN CORPUSCULAR VOLUME 87.4 FL (81.0-99.0); RBC DISTRIBUTION WIDTH 14.6 % (11.5-14.5); RED BLOOD CELL CT 3.19 /CUMM (4.20-5.40)
[2017-12-15 04:41] LABS: PLATELET COUNT 61 /CUMM (130-400); WHITE BLOOD CELL COUNT 22.9 /CUMM (4.8-10.8)
[2017-12-15 08:00] VITALS: BP 103/69
--- NOTE | 2017-12-15 08:04 | PN- Resident CRCU ---
Subjective HPI/CRCU Issues: Patient is still in ICU requiring IV pressors and mechanical ventilatory support. Patient was followed up and examined by me today. She is resting comfortably in bed, intubated, with mechanical ventilation, ET tube in place, OG tube in place, William in place, triple lumen catheter left IJV, Alps. No overnight events noted. Of note, she has red rash is around her lip without any blisters mostly on the right side. No fever or changes in vital status noted overnight. Objective Vital Signs & I&O Last 8 Hrs of Vitals and I&O: Intake & Output 12/15 1600 Intake Total Output Total Balance Patient 56.331 kg Weight Weight Bed scale Measurement Method T-max- 98.4 BP- 91/62 RR-16 Pulse- 88 SpO2- 94% on MV Exam General Appearance: well developed/nourished, no apparent distress, sedated, intubated, on Mech ventilator Other Physical Findings: GEN: ill appearing middle aged woman intubated/sedated on ventilator, NAD HEENT: NCAT, MMM, ET/OG tube, oral lesions (red) no vesicles noted today CARD: Normal S1/S2 w/o m/g/r PULM: Scattered basilar rhonchi (Mech Vent) ABD: Soft, NT, ND, BS+ : William catheter draining yellow urine NEURO: Spontaneous movement of all extremities EXT: Normal pulses, bilateral upper extremity soft restraints ET tube, OG tube was left side of angle of mouth, William in situ, triple-lumen catheter in left IJV. No signs of leakage or inflammation around. Ventilator settings VCV, A/C mode: Rate- 16, TV 450, FiO2 30%, Peek- 55, PEEP 5. Current Medications: Current Medications Sig/Dayday Start time Last Medication Dose Route Stop Time Status Admin Ampicillin 2,000 MG Q8 12/13 1400 AC 12/15 Sodium Chloride 100 ML IV 0519 Artificial Tears 2 GTT TID 12/11 1600 AC 12/15 OPH 1007 Dextrose/Water 1,000 ML ONCE ONE 12/14 1215 DC 12/14 IV 12/15 0814 1229 Lorazepam 1 MG Q4P PRN 12/11 1500 AC 12/15 IV 1048 Neomycin/Polymyxin/ 1 MAGDALENA Q SHIFT 12/15 1530 AC Bacitracin EXT Norepinephrine 8 MG Q14H 12/14 2000 AC 12/14 Dextrose/Water 250 ML IV 215 Norepinephrine 8 MG Q9H 12/13 1100 DC 12/14 Dextrose/Water 250 ML IV 12/14 1959 0607 Pantoprazole Sodium 40 MG Q24H 12/11 0315 AC 12/15 IV 0328 Petrolatum 1 MAGDALENA DAILY AC PRN 12/13 1130 AC 12/15 TOP 0559 Potassium Chloride 40 MEQ BID 12/14 1210 DC 12/14 PO 12/14 2201 2152 Impression/Plan Impression/Problem List Impression: 57 year old non-verbal woman with significant past medical history of cerebral palsy seen for evaluation of altered mental status, weakness, and vomiting. CT abdomen/pelvis identified obstructive uropathy with severe hydronephrosis with perinephric stranding concerning for pyelonephritis versus forniceal rupture. Patient continues to have improving sepsis / UTI while on Ampicillin. She remains afebrile with persistent leukocytosis but resolution of her bandemia. Creatinnie continues to improve. Sodium was elevated for which free water was added. She remains on minimal doses of levophed for blood pressure support. She remains intubated on minimal vent settings, she will be trialed when her infection is almost resolved. Her ABG still demonstrates respiratory alkalosis for which her respiratory rate was lowered to 14 from 16. Phos was repleted via OG tube. She should be followed off of sedation, however ativan should be used if she becomes agitated. Platelets are beginning to improve. Tube feeds are started. Problem List -Severe Sepsis or Urologic Origin, improving -Obstructive left sided uropathy with hydronephrosis s/p stent -Metabolic acidosis, resolved -Elevated lactic acid, resolved -Hyper natremia (155 with 3.1 L free water deficit) -Acute Kidney Injury, improving (Cr 1.2 today) -Acute Hypoxic Respiratory Failure s/p intubation -Hyperbilirubinemia, improving (total bili 1.6 today) -Transaminitis, improving -Thrombocytopenia, stable -History of Cerebral palsy Plan -ICU Care -Avoid Nephrotoxic agents / NSAIDS -Accuchecks Q4H -Intubated, on Vent: VT 450, FiO2 30%, 16 RR , PEEP 5 -LIJ TLC / William Catheter / OGT -Levophed: titrate to MAP > 65 -D5W @ 50mL/hr x1 bag -Neutraphos 250 mg once via OGT -Protonix 40 mg IV Daily -Ampicillin 2 g IV Q8H per ID -3.1 L free water deficit, replacing via OG tube -Ativan 1 mg IV Q4H PRN sedation -Urology following for obstructive uropathy, will get proper Urologic procedure after she is stable -ID following for antibiotic recommendations -Follow cultures & sensitivities -UCx: E coli, Proteus, Enterococcus -Type & Cross -Daily CMP, CBC, ABG, CXR -NPO, starting tube feeds -DVT PPx with ALPS -DNR, patients brother Tom is conservator #Spoke to patient's legal guardian brother and [id number], updated her status , and mentioned that the progress is slow, in she is still requiring mechanical ventilatory support although her pressure support have been tapering. She is still requiring IV antibiotics and questions were answered regarding current status and goals of care. To my understanding, family will continue to watch her progress and will decide on goals of care after the weekend is over. Problem List: 1. Sepsis 2. Respiratory failure requiring intubation Pain Ratin Tomorrow's Labs & Rationales: CBC, CMP, ABG, CXR Plan DVT/Prophylaxis: mechanical, pharmacological (thrombocytopenia)
--- NOTE | 2017-12-15 08:16 | RADIOLOGY REPORT ---
EXAMINATION: XR PORTABLE CHEST CLINICAL INFORMATION: AHRS; respiratory failure. COMPARISON: Prior radiographs, most recently 12/14/2017. TECHNIQUE: Portable frontal view of the chest was obtained. FINDINGS: The heart, great vessels, pulmonary vasculature and mediastinum are stable. Support tubes and catheters are unchanged. In position particular, an endotracheal tube tip is situated approximately 3.3 cm superior to the channing. Lung volumes are again low. There is a stable moderate patchy airspace disease in the lower left lung field. There is mild, patchy airspace disease at the right base. No definite pleural effusion is seen. There is no pneumothorax. No acute osseous abnormality seen. IMPRESSION: There is bilateral lower lung field airspace disease, moderate on the left and mild and increased on the right.
--- NOTE | 2017-12-15 09:12 | PN- Urology ---
Subjective Subjective: Remains intubated. No acute distress Objective Vital Signs and I&Os Vital Signs Date Time Temp Pulse Resp B/P B/P Pulse O2 O2 Flow FiO2 Mean Ox Delivery Rate 12/15 0848 30 12/15 0800 95 Ventilator 30% 12/15 0800 98.3 88 18 103/69 95 Ventilator 30% 12/15 0617 30 12/15 0400 97 Ventilator 30% 12/15 0345 30 12/15 0102 30 12/15 0000 98.9 95 26 100/68 96 Ventilator 30% 12/15 0000 96 Ventilator 30% 12/14 2205 30 12/14 2152 80 98/66 12/14 2000 97 Ventilator 30% 12/14 1920 30 12/14 1605 30 12/14 1600 98.4 84 16 100/70 97 Ventilator 30% 12/14 1600 97 Ventilator 30% 12/14 1419 30 12/14 1200 97 Ventilator 30% 12/14 1025 30 Intake & Output 12/15 1600 12/15 0800 12/15 0000 12/14 1600 12/14 0800 12/14 0000 Intake Total 492 460 415 232 280 Output Total 500 550 570 635 675 Balance -8 -90 -155 -403 -395 Intake, IV 208 214 315 232 280 Intake, Tube 169 66 Feeding Intake, Tube 115 180 100 Irrigant Number 0 Bowel Movements Output, 20 75 Gastric Drainage Output, Urine 500 550 550 560 675 Patient 126 lb 127 lb Weight Weight Bed scale Measurement Method Back: soft and non tender Back: No CVA tenderness Genitalia: cerna in place draining clear urine Laboratory Tests 12/15 12/15 0620 0355 Blood Gas pH (7.35 - 7.45 PH) 7.46 H pCO2 (35 - 45 TORR) 29 L pO2 (80 - 100 TORR) 86 HCO3 (21 - 28 MEQ/L) 20 L ABG O2 Sat (Measured) (>96.0 %) 96.0 P-50 (Temp Corrected) N Carboxyhemoglobin (1.5 - 5.0 %) 0.4 L O2 Concentration % .30 Respiration Rate (BPM) 16 O2 Delivery Method VENT Vent Mode A/C Expiratory Pressure (CMH2O/P) 5 Tidal Volume (CC) 450 Chemistry Sodium (137 - 145 mmol/L) 155 H Potassium (3.5 - 5.1 mmol/L) 4.0 Chloride (98 - 107 mmol/L) 124 H Carbon Dioxide (22 - 30 mmol/L) 23 Anion Gap (5 - 16) 8 BUN (7 - 17 mg/dL) 47 H Creatinine (0.5 - 1.0 mg/dL) 1.2 H Estimated GFR (>60 ml/min) 46 L Glucose (65 - 99 mg/dL) 120 H Calcium (8.4 - 10.2 mg/dL) 7.7 L Phosphorus (2.5 - 4.5 mg/dL) 2.1 L Magnesium (1.6 - 2.3 mg/dL) 1.9 Total Bilirubin (0.2 - 1.3 mg/dL) 1.6 H AST (14 - 36 U/L) 269 H ALT (9 - 52 U/L) 473 H Albumin (3.5 - 5.0 g/dL) 2.1 L Hematology CBC w Diff MAN DIFF ORDERED WBC (4.8 - 10.8 /CUMM) 22.9 H RBC (4.20 - 5.40 /CUMM) 3.19 L Hgb (12.0 - 16.0 G/DL) 9.4 L Hct (37 - 47 %) 27.9 L MCV (81.0 - 99.0 FL) 87.4 MCH (27.0 - 31.0 PG) 29.6 MCHC (33.0 - 37.0 G/DL) 33.9 RDW (11.5 - 14.5 %) 14.6 H Plt Count (130 - 400 /CUMM) 61 L MPV (7.4 - 10.4 FL) 9.5 Gran % (42.2 - 75.2 %) 95.4 H Lymphocytes % (20.5 - 51.1 %) 4.1 L Monocytes % (1.7 - 9.3 %) 0.3 L Eosinophils % (0 - 5 %) 0.1 Basophils % (0.0 - 2.0 %) 0.1 Absolute Granulocytes (1.4 - 6.5 /CUMM) 21.8 H Segmented Neutrophils (42.2 - 75.2 %) 90 H Band Neutrophils (0.0 - 5.0 %) 6 H Absolute Lymphocytes (1.2 - 3.4 /CUMM) 0.9 L Lymphocytes (20.5 - 51.1 %) 1 L Monocytes (1.7 - 9.3 %) 2 Absolute Monocytes (0.10 - 0.60 /CUMM) 0.1 Absolute Eosinophils (0.0 - 0.7 /CUMM) 0 Absolute Basophils (0.0 - 0.2 /CUMM) 0 Metamyelocytes (0.0 - 1.0 %) 1 Platelet Estimate (ADEQUATE) DECREASED Hypochromic-Microcytic 1+ Poikilocytosis 1+ Stomatocytes 1+ Miscellaneous Phlebotomy Draw Site RIGHT RADIAL WBC count starting to slowly decrease. Thrombocytopenia improved. Creatinine now normal Urine C&S pos for enerococcus. She remains on ampicillan Assessment/Plan Assessment/Plan Imp: 1. Urosepsis due to UTI and obstructing stone at L UPJ. Also has 2 stones in lower pold of L kidney. 2. s/p L ureteral stent insertion 3. Overall with signs of improvement Plan: 1. Abx per ID 2. L ureteral stent to remain in place 3. When recovers from present illness will need definitive management of her stones either by ESWL or L ureteroscopy and laser lithotripsy
--- NOTE | 2017-12-15 09:27 | PN- CRCU ---
Subjective HPI/Critical Care Issues: Patient remains intubated and pressor dependent she's become progressively hypernatremic Objective Current Medications: Current Medications Sig/Dayday Start time Last Medication Dose Route Stop Time Status Admin Ampicillin 2,000 MG Q8 12/13 1400 AC 12/15 Sodium Chloride 100 ML IV 0519 Artificial Tears 2 GTT TID 12/11 1600 AC 12/14 OPH 2152 Dextrose/Water 1,000 ML ONCE ONE 12/14 1215 DC 12/14 IV 12/15 0814 1229 Lorazepam 1 MG Q4P PRN 12/11 1500 AC 12/15 IV 0527 Norepinephrine 8 MG Q14H 12/14 2000 AC 12/14 Dextrose/Water 250 ML IV 2152 Norepinephrine 8 MG Q9H 12/13 1100 DC 12/14 Dextrose/Water 250 ML IV 12/14 1959 0607 Pantoprazole Sodium 40 MG Q24H 12/11 0315 AC 12/15 IV 0328 Petrolatum 1 MAGDALENA DAILY AC PRN 12/13 1130 AC 12/15 TOP 0559 Potassium Chloride 40 MEQ BID 12/14 1210 DC 12/14 PO 12/14 2201 2152 Vital Signs & I&O Last 24 Hrs of Vitals and I&O: Vital Signs Date Time Temp Pulse Resp B/P B/P Pulse O2 O2 Flow FiO2 Mean Ox Delivery Rate 12/15 0848 30 12/15 0800 95 Ventilator 30% 12/15 0800 98.3 88 18 103/69 95 Ventilator 30% 12/15 0617 30 12/15 0400 97 Ventilator 30% 12/15 0345 30 12/15 0102 30 12/15 0000 98.9 95 26 100/68 96 Ventilator 30% 12/15 0000 96 Ventilator 30% 12/14 2205 30 12/14 2152 80 98/66 12/15 1999 97 Ventilator 30% 12/14 1920 30 12/14 1605 30 12/14 1600 98.4 84 16 100/70 97 Ventilator 30% 12/14 1600 97 Ventilator 30% 12/14 1419 30 12/14 1200 97 Ventilator 30% 12/14 1025 30 Intake & Output 12/15 1600 17 0800 12/15 0000 Intake Total 492 460 Output Total 500 550 Balance -8 -90 Intake, IV 208 214 Intake, Tube 169 66 Feeding Intake, Tube 115 180 Irrigant Output, Urine 500 550 Saturation 9495% and 30% pressors are being able to be tapered her chest shows occasional rhonchi cardiac exam shows a regular S1 and S2 without murmurs x-rays without significant change Impression/Plan Impression/Plan Impression/Plan: 57-year-old with multiple medical problems continues to be ventilator dependent in the setting of urologic sepsis. Is developed progressive hypernatremia. Recommendations: Caltrate free water deficit and crit with water via NG tube. Maintain tight control of blood sugar she needed to Taper pressors as blood pressure allows. Decrease respiratory rate to 14
--- NOTE | 2017-12-15 09:59 | PN- Infect Dx ---
Subjective Subjective: Afebrile. She remains borderline hypotensive, requiring pressors. She is unable to provide any history. Objective Last 24 Hrs of Vital Signs/I&O Vital Signs Date Time Temp Pulse Resp B/P B/P Pulse O2 O2 Flow FiO2 Mean Ox Delivery Rate 12/15 0848 30 12/15 0800 95 Ventilator 30% 12/15 0800 98.3 88 18 103/69 95 Ventilator 30% 12/15 0617 30 12/15 0400 97 Ventilator 30% 12/15 0345 30 12/15 0102 30 12/15 0000 98.9 95 26 100/68 96 Ventilator 30% 12/15 0000 96 Ventilator 30% 12/14 2205 30 12/14 2152 80 98/66 12/14 2000 97 Ventilator 30% 12/14 1920 30 12/14 1605 30 12/14 1600 98.4 84 16 100/70 97 Ventilator 30% 12/14 1600 97 Ventilator 30% 12/14 1419 30 12/14 1200 97 Ventilator 30% 12/14 1025 30 Intake & Output 12/15 1600 12/15 0800 12/15 0000 Intake Total 492 460 Output Total 500 550 Balance -8 -90 Intake, IV 208 214 Intake, Tube 169 66 Feeding Intake, Tube 115 180 Irrigant Output, Urine 500 550 Physical Exam Other Physical Findings: She is more responsive though remains lethargic on the ventilator Neck left IJ triple-lumen catheter with no inflammation at the site Lungs bilateral rhonchi Heart regular rhythm with no murmur Abdomen is mildly distended, with no obvious tenderness, positive bowel sounds Extremities no cyanosis, clubbing or edema William catheter remains in place Results Last 24 Hours of Lab Results: Laboratory Tests 12/15 12/15 0620 0355 Blood Gas pH (7.35 - 7.45 PH) 7.46 H pCO2 (35 - 45 TORR) 29 L pO2 (80 - 100 TORR) 86 HCO3 (21 - 28 MEQ/L) 20 L ABG O2 Sat (Measured) (>96.0 %) 96.0 P-50 (Temp Corrected) N Carboxyhemoglobin (1.5 - 5.0 %) 0.4 L O2 Concentration % .30 Respiration Rate (BPM) 16 O2 Delivery Method VENT Vent Mode A/C Expiratory Pressure (CMH2O/P) 5 Tidal Volume (CC) 450 Chemistry Sodium (137 - 145 mmol/L) 155 H Potassium (3.5 - 5.1 mmol/L) 4.0 Chloride (98 - 107 mmol/L) 124 H Carbon Dioxide (22 - 30 mmol/L) 23 Anion Gap (5 - 16) 8 BUN (7 - 17 mg/dL) 47 H Creatinine (0.5 - 1.0 mg/dL) 1.2 H Estimated GFR (>60 ml/min) 46 L Glucose (65 - 99 mg/dL) 120 H Calcium (8.4 - 10.2 mg/dL) 7.7 L Phosphorus (2.5 - 4.5 mg/dL) 2.1 L Magnesium (1.6 - 2.3 mg/dL) 1.9 Total Bilirubin (0.2 - 1.3 mg/dL) 1.6 H AST (14 - 36 U/L) 269 H ALT (9 - 52 U/L) 473 H Albumin (3.5 - 5.0 g/dL) 2.1 L Hematology CBC w Diff MAN DIFF ORDERED WBC (4.8 - 10.8 /CUMM) 22.9 H RBC (4.20 - 5.40 /CUMM) 3.19 L Hgb (12.0 - 16.0 G/DL) 9.4 L Hct (37 - 47 %) 27.9 L MCV (81.0 - 99.0 FL) 87.4 MCH (27.0 - 31.0 PG) 29.6 MCHC (33.0 - 37.0 G/DL) 33.9 RDW (11.5 - 14.5 %) 14.6 H Plt Count (130 - 400 /CUMM) 61 L MPV (7.4 - 10.4 FL) 9.5 Gran % (42.2 - 75.2 %) 95.4 H Lymphocytes % (20.5 - 51.1 %) 4.1 L Monocytes % (1.7 - 9.3 %) 0.3 L Eosinophils % (0 - 5 %) 0.1 Basophils % (0.0 - 2.0 %) 0.1 Absolute Granulocytes (1.4 - 6.5 /CUMM) 21.8 H Segmented Neutrophils (42.2 - 75.2 %) 90 H Band Neutrophils (0.0 - 5.0 %) 6 H Absolute Lymphocytes (1.2 - 3.4 /CUMM) 0.9 L Lymphocytes (20.5 - 51.1 %) 1 L Monocytes (1.7 - 9.3 %) 2 Absolute Monocytes (0.10 - 0.60 /CUMM) 0.1 Absolute Eosinophils (0.0 - 0.7 /CUMM) 0 Absolute Basophils (0.0 - 0.2 /CUMM) 0 Metamyelocytes (0.0 - 1.0 %) 1 Platelet Estimate (ADEQUATE) DECREASED Hypochromic-Microcytic 1+ Poikilocytosis 1+ Stomatocytes 1+ Miscellaneous Phlebotomy Draw Site RIGHT RADIAL Last 24 Hours of Jae Results: No new cultures Recent Imaging Studies: Chest x-ray December 15 reveals stable moderate patchy airspace disease at both lung bases Assessment/Plan ID Impression: Overall improved, though continues to require pressors, with temperatures remaining normal, white blood cell count slightly decreased, with decreased bands, increasing platelets and improving renal function on Ampicillin Day 5 of treatment for sepsis of urologic origin secondary to Enterococcus, Escherichia coli and Proteus, status post cystoscopy and placement of a left ureteral stent 4 days ago. She remains hypernatremic which will require correction. Suggestion: 1. Correct hypernatremia 2. Remove left IJ triple-lumen catheter once she is off pressors 3. Continue Ampicillin
[2017-12-15 16:00] VITALS: BP 100/70
[2017-12-16] VITALS: BP 106/60
[2017-12-16 05:34] LABS: ABSOLUTE BASOPHIL COUNT 0 /CUMM (0.0-0.2); ABSOLUTE EOSINOPHIL COUNT 0 /CUMM (0.0-0.7); ABSOLUTE LYMPH COUNT 1.2 /CUMM (1.2-3.4); ABSOLUTE MONOCYTE COUNT 0.1 /CUMM (0.10-0.60); BASOPHIL % 0 % (0.0-2.0); EOSINOPHIL % 0.2 % (0-5); GRANULOCYTE % 92.9 % (42.2-75.2); HEMATOCRIT 25.4 % (37-47); MEAN CORPUSCULAR HGB 29.6 PG (27.0-31.0); MEAN CORPUSCULAR HGB CONC 33.9 G/DL (33.0-37.0); MEAN CORPUSCULAR VOLUME 87.3 FL (81.0-99.0); MEAN PLATELET VOLUME 9.4 FL (7.4-10.4); RBC DISTRIBUTION WIDTH 14.6 % (11.5-14.5); WHITE BLOOD CELL COUNT 19.4 /CUMM (4.8-10.8)
--- NOTE | 2017-12-16 05:42 | RADIOLOGY REPORT ---
EXAMINATION: XR PORTABLE CHEST CLINICAL INFORMATION: Intubation. COMPARISON: Chest x-ray 12/15/2017, 12/14/2017 TECHNIQUE: Portable frontal view of the chest was obtained. 5:14 AM FINDINGS: Endotracheal tube about 2 cm above channing. Left IJ catheter tip over the cavoatrial junction. Nasogastric tube in stomach. There is low inspiratory effort. Mild central hilar vascular prominence which is accentuated by the low inspiratory effort. There is hazy airspace disease at the mid lower lung bases bilateral, greater on left than right. This can be infiltrate and/or pulmonary edema. Airspace disease is worsening at both lung bases compared to prior chest x-ray. IMPRESSION: 1. Endotracheal tube 2 cm is been chronic. 2. Nasogastric tube in stomach. 3. Left IJ catheter in superior vena cava. 4. Worsening bibasilar airspace disease. 5. Mild central vascular prominence 6 cm by low inspiratory effort
[2017-12-16 05:45] LABS: PLATELET COUNT 92 /CUMM (130-400)
[2017-12-16 08:00] VITALS: BP 114/68
--- NOTE | 2017-12-16 08:22 | PN- Resident CRCU ---
See Addendum Subjective HPI/CRCU Issues: Sepsis secondary to obstructive uropathy -status post left ureteral stent 5 days ago Acute hypoxic respiratory failure - intubated and mechanically ventilated Thrombo-cytopenia Hypernatremia 24 Hour Events: Patient is relaively stable on low-dose pressors. She is alert and able to communicate yes/no, remains intubated. She spiked a fever of 101.9 this morning. Heart rate 100. Blood pressure remains borderline low on pressors, dropping to 70s off pressors. Still remains intubated with settings of volume assist control 450/30/16/5. Continues to be on IV ampicillin for presumed Escherichia coli sepsis. Send pancultures today after spiking fevers. Rule out any CT scan to rule out urinoma/forniceal rupture after stenting. Objective Vital Signs & I&O Last 8 Hrs of Vitals and I&O: Vital Signs Date Time Temp Pulse Resp B/P B/P Pulse O2 O2 Flow FiO2 Mean Ox Delivery Rate 12/16 0814 101.4 12/16 0558 30 12/16 0400 97 Ventilator 30% 12/16 0317 30 12/16 0113 100 94/60 12/16 0033 30.1 12/16 0000 97 Ventilator 30% 12/16 0000 99.7 94 15 106/60 97 Ventilator 30% 12/15 2229 30 12/15 2000 97 Ventilator 30% 12/15 1959 30 12/15 1600 97 Ventilator 30% 12/15 1600 97.8 82 16 100/70 97 Ventilator 30% 12/15 1547 30 12/15 1402 30 12/15 1200 95 Ventilator 30% 12/15 1112 30 12/15 0848 30 Exam General Appearance: alert, intubated, lethargic Head: atraumatic, normal appearance Ears, Nose, Throat: disclamation and lesions apparent on upper lip and right lower extremity Neck: normal inspection, supple Respiratory: quiet respiration, decreased breath sounds Cardiovascular: normal peripheral pulses Gastrointestinal: normal bowel sounds, soft, non-tender, no organomegaly Extremities: normal inspection, normal capillary refill, no edema Cranial Nerves: PERRL Skin: intact, normal color Skin Temp/Moisture Exam: Warm/Dry Sepsis Skin Exam (color): Normal for Ethnicity Central Line Site: Left IJ Date In: 12/11/17 Need for Catheter: pressors IV Drips IV Drips: Norepinephrine Nutrition Nutrition: tube feeding Current Medications: Current Medications Sig/Dayday Start time Last Medication Dose Route Stop Time Status Admin Acetaminophen 1,000 MG ONCE ONE 12/16 1000 DC 12/16 N/A 1 UNIT IV 12/16 1014 1014 Acetaminophen 650 MG ONCE ONE 12/16 0815 DC 12/16 PO 12/16 0816 0814 Ampicillin 2,000 MG Q8 12/13 1400 AC 12/16 Sodium Chloride 100 ML IV 0501 Artificial Tears 2 GTT TID 12/11 1600 AC 12/16 OPH 0814 Lorazepam 1 MG Q4P PRN 12/11 1500 AC 12/16 IV 0948 Magnesium Sulfate 1 GM Q2H 12/16 0845 AC 12/16 Dextrose/Water 100 ML IV 12/16 1244 1048 Neomycin/Polymyxin/ 1 MAGDALENA 0000,0800,1600 12/16 1600 AC Bacitracin EXT Neomycin/Polymyxin/ 1 MAGDALENA Q SHIFT 12/15 1530 DC 12/16 Bacitracin EXT 0810 Norepinephrine 8 MG Q14H 12/16 1030 AC Dextrose/Water 250 ML IV Norepinephrine 8 MG Q14H 12/14 2000 DC 12/16 Dextrose/Water 250 ML IV 0113 Pantoprazole Sodium 40 MG Q24H 12/11 0315 AC 12/16 IV 0333 Petrolatum 1 MAGDALENA DAILY AC PRN 12/13 1130 AC 12/15 TOP 0559 Phosphate 250 MG ONCE ONE 12/15 1330 DC 12/15 PO 12/15 1331 1412 Potassium Chloride 40 MEQ ONCE ONE 12/16 1300 AC PO 12/16 1301 Potassium Chloride 40 MEQ ONCE ONE 12/16 0845 DC 12/16 PO 12/16 0846 0911 CXR Findings: IMPRESSION: 1. Endotracheal tube 2 cm is been chronic. 2. Nasogastric tube in stomach. 3. Left IJ catheter in superior vena cava. 4. Worsening bibasilar airspace disease. 5. Mild central vascular prominence 6 cm by low inspiratory effort Impression/Plan Impression/Problem List Impression: This is a 57-year-old female with past medical history significant for cerebral palsy, comes in for chief complaint of weakness, chills, and vomiting. Upon evaluation she was found to meet criteria for septic shock given hypotension requiring max dose of pressors, bandemia, tachycardia and evidence of endorgan dysfunction. Subsequently her blood cultures are positive for gram-negative rods and gram-positive cocci, her CT of the abdomen showed evidence of severe left-sided hydronephrosis and possible calyceal rupture which warranted emergent OR intervention w/ left UPJ stent placement. Pt now admitted to ICU for further management. PLAN: Respiratory: Acute Hypoxic Respiratory Failure: Pt intubated on AC 20/450/60/5. CXR shows evidence of worsening bibasilar disease. She was aggressively volume resuscitated given shock with about 7L of fluid. * Continue mechanical ventilation * Repeat ABG at 5 AM to re-evaluate settings. Last ABG showed bicarb 19. * Double concentrate pressors and avoid excess fluid administration. ID: Sepsis of urologic origin: Pt now growing bcx x2 + GNR and 1 + for GPC. Her CT abd/pelvis showed severe l.hydro and significant stranding with concern of pyelonephritis. She got one dose of ceftriaxone, zosyn and vancomycin. * Spiked a temparature of 101.9 without any significant change in white count. She was pancultured. * Appreciate ID recs * Continue Ampicillin IV 2gm Q8 for now. * Repeat CT scan of abdomen without IV contrast did show patent stent distal to UPJ in the ureter, functional. It did demonstrate anasarca with pleural effusions and airspace disease in the lower lobes (cannot rule out PNA/ atelectasis). No evident hydronephrosis. CARDIOVASCULAR: * Trending Trop/EKG; so far negative * ECHO did show EF 30-35% with tricuspid regurgitation. HEME/ONC: Leukocytosis: Due to infxn. Trending down, No bands. Normocytic Anemia: Hb 8.6/25. Came in 11.5. * Con't monitor * Iron studies requested Thrombocytopenia: Plt 28, she came in with 46. Likely secondary to sepsis. * 92 today, much improved METABOLIC Metabolic acidosis: Resolved ALIMENTARY: NPO- On tube feeds. NEPHRO: EDIL: Resolved. Pt came in with Cr 4.5 now at 1.0. Her BUN is 78. She has had significant renal injury due to hydro and calyceal disruption. * Con't monitor * avoid nephrotoxins NEURO: Cerebral palsy: baseline non verbal. DNR Problem List: 1. Metabolic acidosis 2. Respiratory failure requiring intubation 3. Sepsis Pain Ratin Tomorrow's Labs & Rationales: cbc to monitor white count, BEP for electrolytes and Cr Plan DVT/Prophylaxis: mechanical, pharmacological (thrombocytopenia)
--- NOTE | 2017-12-16 09:16 | PN- CRCU ---
Subjective HPI/Critical Care Issues: Patient was able to be weaned off levo fed she remains intubated. She is being recultured for low-grade temperature Objective Current Medications: Current Medications Sig/Dayday Start time Last Medication Dose Route Stop Time Status Admin Acetaminophen 650 MG ONCE ONE 12/16 0815 DC 12/16 PO 12/16 0816 0814 Ampicillin 2,000 MG Q8 12/13 1400 AC 12/16 Sodium Chloride 100 ML IV 0501 Artificial Tears 2 GTT TID 12/11 1600 AC 12/16 OPH 0814 Lorazepam 1 MG Q4P PRN 12/11 1500 AC 12/16 IV 0428 Magnesium Sulfate 1 GM Q2H 12/16 0845 AC 12/16 Dextrose/Water 100 ML IV 12/16 1244 0904 Neomycin/Polymyxin/ 1 MAGDALENA Q SHIFT 12/15 1530 AC 12/16 Bacitracin EXT 0810 Norepinephrine 8 MG Q14H 12/14 2000 DC 12/16 Dextrose/Water 250 ML IV 0113 Pantoprazole Sodium 40 MG Q24H 12/11 0315 AC 12/16 IV 0333 Petrolatum 1 MAGDALENA DAILY AC PRN 12/13 1130 AC 12/15 TOP 0559 Phosphate 250 MG ONCE ONE 12/15 1330 DC 12/15 PO 12/15 1331 1412 Potassium Chloride 40 MEQ ONCE ONE 12/16 1300 AC PO 12/16 1301 Potassium Chloride 40 MEQ ONCE ONE 12/16 0845 DC 12/16 PO 12/16 0846 0911 Vital Signs & I&O Last 24 Hrs of Vitals and I&O: Vital Signs Date Time Temp Pulse Resp B/P B/P Pulse O2 O2 Flow FiO2 Mean Ox Delivery Rate 12/16 0820 30 12/16 0814 101.4 12/16 0558 30 12/16 0400 97 Ventilator 30% 12/16 0317 30 12/16 0113 100 94/60 12/16 0033 30.1 12/16 0000 97 Ventilator 30% 12/16 0000 99.7 94 15 106/60 97 Ventilator 30% 12/15 2229 30 12/15 2000 97 Ventilator 30% 12/15 1959 30 12/15 1600 97 Ventilator 30% 12/15 1600 97.8 82 16 100/70 97 Ventilator 30% 12/15 1547 30 12/15 1402 30 12/15 1200 95 Ventilator 30% 12/15 1112 30 Intake & Output 12/16 1600 12/16 0800 12/16 0000 Intake Total 659 540 Output Total 650 550 Balance 9 -10 Intake, IV 151 150 Intake, Tube 393 210 Feeding Intake, Tube 115 180 Irrigant Output, Urine 650 550 Since saturation 0.397% exam for chest shows occasional rhonchi cardiac exam shows a regular S1 and S2 without murmurs abdomen is soft. X-ray shows increasing bibasilar density Impression/Plan Impression/Plan Impression/Plan: 57-year-old woman admitted with respiratory failure sepsis now off pressors. She is being recultured for worsening chest x-ray and low-grade fever Recommendations: Taper FiO2 his saturations allow. Evaluation of lip lesions per infectious diseases possible herpes. Complete course of antibiotics. Fully culture. If she is able to remain off pressors consider discontinuing central line
[2017-12-16 12:00] VITALS: BP 88/52
--- NOTE | 2017-12-16 12:48 | CT SCAN REPORT ---
EXAMINATION: CT ABDOMEN AND PELVIS WITHOUT CONTRAST CLINICAL INFORMATION: Left obstructive uropathy status-post ureteral stent placement. COMPARISON: Intraoperative fluoroscopy dated 12/11/[address] abdomen and pelvis dated 12/10/2017. TECHNIQUE: Multidetector volumetric imaging was performed from the superior aspect of the liver through the pubic symphysis. Sagittal and coronal reformatted images were obtained on the technologist's workstation. DLP: 343.05 mGy-cm FINDINGS: LUNG BASES: There are moderate bilateral pleural effusions with adjacent moderate bibasilar compressive atelectasis including air bronchograms. LIVER, GALLBLADDER, AND BILIARY TREE: The liver is normal in size, shape, and attenuation. No focal hepatic lesion or biliary ductal dilatation is present. The gallbladder is unremarkable with no evidence of radiopaque gallstones, gallbladder wall thickening, or obvious pericholecystic inflammatory changes. PANCREAS: Unremarkable. SPLEEN: Unremarkable. ADRENAL GLANDS: Unremarkable. KIDNEYS AND URETERS: The right kidney is normal in size, shape, and attenuation. There is asymmetric enlargement of the left kidney. At the lower pole of the left kidney (2:41), adjacent 1.3 x 1.0 cm and 0.4 cm linear calculi are noted. A double pigtail left ureteric stent is seen. The proximal pigtail is situated within the left renal intrarenal collecting system. The stent courses past a 0.8 cm x 0.6 cm calculus at the left ureteropelvic junction (2:39). As is best seen on thin cut axial and coronal sections, the distal tip of the left ureteric stent appears to be situated within the left ureterovesicular junction and not within the urinary bladder. BLADDER: Largely decompressed by a William catheter. GASTROINTESTINAL TRACT: A nasogastric tube is seen, with tip situated in the gastric body. The small and large bowel are unremarkable. The appendix is unremarkable. ABDOMINAL WALL: No significant hernia is appreciated. There is mild to moderate generalized anasarca. LYMPH NODES: Normal. VASCULAR: Unremarkable. PELVIC VISCERA: The uterus and adnexa are unremarkable. OSSEOUS STRUCTURES: Unremarkable. FREE FLUID: There is mild ascites in the perihepatic and perisplenic regions, the anterior pelvic and cul-de-sac. IMPRESSION: 1. Left renal and UPJ calculi are seen as above. There is a double pigtail left ureteric stent with distal tip situated in the vicinity of the ureterovesicular junction. No left hydronephrosis is seen. 2. There is mild ascites. 3. There is mild to moderate generalized anasarca. 4. There is bibasilar pleural and parenchymal disease, as detailed.
[2017-12-16 16:00] VITALS: BP 98/60
[2017-12-16 19:45] LABS: ABSOLUTE BASOPHIL COUNT 0 /CUMM (0.0-0.2); ABSOLUTE EOSINOPHIL COUNT 0 /CUMM (0.0-0.7); ABSOLUTE GRANULOCYTE CT 17.9 /CUMM (1.4-6.5); ABSOLUTE LYMPH COUNT 0.9 /CUMM (1.2-3.4); ABSOLUTE MONOCYTE COUNT 0.1 /CUMM (0.10-0.60); BASOPHIL % 0 % (0.0-2.0); EOSINOPHIL % 0.2 % (0-5); GRANULOCYTE % 94.5 % (42.2-75.2); HEMATOCRIT 25.1 % (37-47); MEAN CORPUSCULAR HGB 29.4 PG (27.0-31.0); MEAN CORPUSCULAR HGB CONC 33.5 G/DL (33.0-37.0); MEAN CORPUSCULAR VOLUME 87.6 FL (81.0-99.0); MEAN PLATELET VOLUME 10.3 FL (7.4-10.4); PLATELET COUNT 115 /CUMM (130-400); RBC DISTRIBUTION WIDTH 15.1 % (11.5-14.5); RED BLOOD CELL CT 2.86 /CUMM (4.20-5.40)
[2017-12-16 23:00] VITALS: BP 90/52
[2017-12-17 04:43] LABS: ABSOLUTE BASOPHIL COUNT 0 /CUMM (0.0-0.2); ABSOLUTE EOSINOPHIL COUNT 0.1 /CUMM (0.0-0.7); ABSOLUTE GRANULOCYTE CT 15.9 /CUMM (1.4-6.5); ABSOLUTE LYMPH COUNT 1.3 /CUMM (1.2-3.4); ABSOLUTE MONOCYTE COUNT 0.3 /CUMM (0.10-0.60); BASOPHIL % 0 % (0.0-2.0); EOSINOPHIL % 0.4 % (0-5); GRANULOCYTE % 90.6 % (42.2-75.2); MEAN CORPUSCULAR HGB 29.4 PG (27.0-31.0); MEAN CORPUSCULAR HGB CONC 33.5 G/DL (33.0-37.0); MEAN CORPUSCULAR VOLUME 87.8 FL (81.0-99.0); MEAN PLATELET VOLUME 9.9 FL (7.4-10.4); PLATELET COUNT 148 /CUMM (130-400); RBC DISTRIBUTION WIDTH 14.8 % (11.5-14.5); RED BLOOD CELL CT 2.73 /CUMM (4.20-5.40); WHITE BLOOD CELL COUNT 17.6 /CUMM (4.8-10.8)
--- NOTE | 2017-12-17 06:24 | RADIOLOGY REPORT ---
EXAMINATION: XR PORTABLE CHEST CLINICAL INFORMATION: Intubation. Airspace disease. COMPARISON: Chest x-ray December 16, 2017 TECHNIQUE: Portable frontal view of the chest was obtained. 5:34 AM FINDINGS: Endotracheal tube 2 cm above the channing. Nasogastric tube in stomach. Left IJ catheter tip over the right atrium. Lung volume is low. Airspace opacity over the left lung base similar to prior chest x-ray. The airspace disease at the right lung base has improved in aeration since prior study. The mild central pulmonary vascular congestion seen on the prior chest x-ray has also improved since prior exam. IMPRESSION: Endotracheal tube 2 cm above the channing. Nasogastric tube in stomach. Left IJ catheter tip over the right atrium. Improving pulmonary vascular congestion and improving aeration at right lung base. Persistent airspace opacity left lung base.
--- NOTE | 2017-12-17 07:28 | PN- Resident CRCU ---
Fely CASTILLO,Fernandez 12/17/17 0728: Subjective HPI/CRCU Issues: Patient is still in ICU requiring ONE IV pressor and mechanical ventilatory support. Patient was followed up and examined by me today. She is resting comfortably in bed, intubated, with mechanical ventilation, ET tube in place, OG tube in place, William in place, triple lumen catheter left IJV, Alps. FEVER overnight noted. Also, her red rash around her lip has increased. Objective Vital Signs & I&O Last 8 Hrs of Vitals and I&O: Vital Signs Date Time Temp Pulse Resp B/P B/P Pulse O2 O2 Flow FiO2 Mean Ox Delivery Rate 12/17 1812 98.9 12/17 1655 30 12/17 1653 100.4 12/17 1600 97 Ventilator 30% 12/17 1600 100.4 100 20 104/60 97 Ventilator 30% 12/17 1432 30 12/17 1200 97 Ventilator 30% 12/17 1101 30 12/17 0859 99.0 12/17 0815 30 12/17 0800 101.2 12/17 0800 96 Ventilator 30% 12/17 0553 30 12/17 0534 110 14 94/64 12/17 0410 30 12/17 0400 96 Ventilator 30% 12/17 0200 99.7 12/17 0143 30 12/17 0123 101.3 12/17 0000 94 Ventilator 30% 12/16 2300 101.3 99 21 90/52 94 Ventilator 30% 12/16 2205 30 12/16 2000 96 Ventilator 30% 12/16 1905 100.0 12/16 1905 100.0 Exam General Appearance: well developed/nourished, no apparent distress, sedated, intubated Other Physical Findings: GEN: ill appearing middle aged woman intubated/sedated on ventilator, NAD HEENT: NCAT, MMM, ET/OG tube, red oral lesions around the lip, extending slightly into the inner lip noted CARD: Normal S1/S2 w/o m/g/r PULM: Scattered basilar rhonchi (Mech Vent) ABD: Soft, NT, ND, BS+ : William catheter draining urine NEURO: Spontaneous movement of all extremities EXT: Normal pulses, bilateral upper extremity soft restraints ET tube, OG tube, William in situ, triple-lumen catheter in left IJV. No signs of leakage or inflammation around. Current Medications: Current Medications Sig/Dayday Start time Last Medication Dose Route Stop Time Status Admin Acetaminophen 1,000 MG Q6P PRN 12/16 1815 AC 12/17 N/A 1 UNIT IV 0123 Acetaminophen 1,000 MG ONCE ONE 12/16 1000 DC 12/16 N/A 1 UNIT IV 12/16 1014 1014 Acetaminophen 650 MG ONCE ONE 12/16 0815 DC 12/16 PO 12/16 0816 0814 Ampicillin 2,000 MG Q6 12/16 1800 AC 12/17 Sodium Chloride 100 ML IV 0534 Ampicillin 2,000 MG Q8 12/13 1400 DC 12/16 Sodium Chloride 100 ML IV 1416 Artificial Tears 2 GTT TID 12/11 1600 AC 12/16 OPH 2119 Bisacodyl 10 MG DAILY PRN 12/16 1730 AC PO Docusate Sodium 100 MG BID PRN 12/16 1730 AC PO Furosemide 40 MG ONCE ONE 12/16 1430 DC 12/16 IV 12/16 1431 1439 Lorazepam 1 MG Q4P PRN 12/11 1500 AC 12/17 IV 0424 Magnesium Sulfate 1 GM Q2H 12/16 0845 DC 12/16 Dextrose/Water 100 ML IV 12/16 1244 1048 Neomycin/Polymyxin/ 1 MAGDALENA 0000,0800,1600 12/16 1600 AC 12/17 Bacitracin EXT 0023 Neomycin/Polymyxin/ 1 MAGDALENA Q SHIFT 12/15 1530 DC 12/16 Bacitracin EXT 0810 Norepinephrine 8 MG Q14H 12/16 1030 AC 12/17 Dextrose/Water 250 ML IV 0534 Norepinephrine 8 MG Q14H 12/14 2000 DC 12/16 Dextrose/Water 250 ML IV 0113 Pantoprazole Sodium 40 MG Q24H 12/11 0315 AC 12/17 IV 0427 Petrolatum 1 MAGDALENA DAILY AC PRN 12/13 1130 AC 12/15 TOP 0559 Polyethylene Glycol 17 GM DAILY 12/16 1723 AC 12/16 PO 1807 Potassium Chloride 40 MEQ ONCE ONE 12/16 1300 DC 12/16 PO 12/16 1301 1316 Potassium Chloride 40 MEQ ONCE ONE 12/16 0845 DC 12/16 PO 12/16 0846 0911 Impression/Plan Impression/Problem List Impression: 57 year old non-verbal woman with significant past medical history of cerebral palsy seen for evaluation of altered mental status, weakness, and vomiting. CT abdomen/pelvis identified obstructive uropathy with severe hydronephrosis with perinephric stranding concerning for pyelonephritis versus forniceal rupture. Patient continues to have improving sepsis / UTI while on Ampicillin. She remains afebrile with persistent leukocytosis but resolution of her bandemia. Creatinnie continues to improve. Sodium was elevated for which free water was added. She remains on minimal doses of levophed for blood pressure support. She remains intubated on minimal vent settings. We tried weaning trial with PEEP 5 for the first time today, but her rr went up to 40, after which the trial was aborted. Ativan used for agitation. Platelets are beginning to improve. Tube feeds continuing. Problem List -Severe Sepsis or Urologic Origin, improving -Obstructive left sided uropathy with hydronephrosis s/p stent -Metabolic acidosis, resolved -Elevated lactic acid, resolved -Hyper natremia -Acute Kidney Injury, improving (Cr 1.0 today) -Acute Hypoxic Respiratory Failure s/p intubation -Hyperbilirubinemia, improving (total bili 0.9 today) -Transaminitis, improving -Thrombocytopenia, improving 148 -History of Cerebral palsy, non-verbal at baseline Plan -ICU Care -Avoid Nephrotoxic agents / NSAIDS -Accuchecks Q4H -Intubated, on Vent: VT 450, FiO2 30%, 16 RR , PEEP 5 -LIJ TLC / William Catheter / OGT -Levophed: titrate to MAP > 65 -D5W1/2NS @ 50mL/hr x1 bag to lower free water deficit -Protonix 40 mg IV Daily -Ampicillin 2 g IV Q6H per ID -Acyclovir 250 mg q8h -Ativan 1 mg IV Q4H PRN sedation -Urology following for obstructive uropathy, will get proper Urologic procedure after she is stable -ID following for antibiotic recommendations -Follow cultures & sensitivities -UCx: E coli, Proteus, Enterococcus -Type & Cross -Daily CMP, CBC, ABG, CXR -NPO, starting tube feeds -DVT PPx with ALPS -DNR, patients brother Tom is conservator #Spoke to patient's one of the legal guardian brother Navid, updated her status, and mentioned that the progress is slow, in she is still requiring mechanical ventilatory support, failed a weaning trial today but it was the first time we tried it, and her pressure support was requiring one last drug, almost tapering it off. She is still requiring IV antibiotics and questions were answered regarding current status and goals of care. To my understanding, family will continue to watch her progress and the decision about the goals of care is NOT to escalate the care if her condition worsens. no re-intubation, no another triple lumen catheter, no cardiac compressions. Problem List: 1. Respiratory failure requiring intubation 2. Sepsis Pain Ratin (NOT ASSESSIBLE) Tomorrow's Labs & Rationales: CBC, ICU Bundle Plan DVT/Prophylaxis: mechanical, pharmacological (thrombocytopenia) Matty Penaloza MD 12/17/17 1130: Attending MD Review Statement Attending Sign Off Attending Cosign Statement: I have: examined this patient, reviewed avalbl EMR data, personally reviewd images, discussd w/resident/PA/DRIVER/REFUSE COLLECTOR, discussed mgmt plan w/angélica, discussed mgmt plan w/CM, discussed mgmt plan w/pt, agreed w/resident/PA/DRIVER/REFUSE COLLECTOR, amended to note. Other Findings: IMatty M.D. have examined this patient, reviewed available EMR data, personally reviewed images, discussed with resident/PA/DRIVER/REFUSE COLLECTOR, discussed management plan with housestaff and nursing staff, discussed managment plan all of healthcare providers, discussed management plan with patient and/or family, agreed with resident/PA/DRIVER/REFUSE COLLECTOR. The past history and parts of the chart have been autopopulated. Impression 57-year-old woman with cerebral palsy and nonverbal at baseline * Septic shock secondary to infection of urological origin - E.Coli/Enterococcus Plan Respiratory -cont mechanical ventilation, spontaneous breathing trials ID -ID consultation appreciated -cont abx per ID -f/u all cx -acyclovir ?herpetic lesions CVS -monitor hemodynamics -titrate pressors as tolerated -MAP 65 goal Heme -monitor cbc, coags Metabolic -monitor ins/outs -electrolytes, creatinine Alimentary -tube feeding, free water flushes Neuro -sedate if necessary TTS 35 min
--- NOTE | 2017-12-17 10:45 | PN- Infect Dx ---
Subjective Subjective: MAXIMUM TEMPERATURE 101.5. Objective Last 24 Hrs of Vital Signs/I&O Vital Signs Date Time Temp Pulse Resp B/P B/P Pulse O2 O2 Flow FiO2 Mean Ox Delivery Rate 12/17 0859 99.0 12/17 0800 101.2 12/17 0553 30 12/17 0534 110 14 94/64 12/17 0410 30 12/17 0400 96 Ventilator 30% 12/17 0200 99.7 12/17 0143 30 12/17 0123 101.3 12/17 0000 94 Ventilator 30% 12/16 2300 101.3 99 21 90/52 94 Ventilator 30% 12/16 2205 30 12/16 2000 96 Ventilator 30% 12/16 1905 100.0 12/16 1905 100.0 12/16 1841 35 12/16 1814 101.5 12/16 1813 101.5 12/16 1638 30 12/16 1600 98.4 101 19 98/60 97 Ventilator 30% 12/16 1600 97 Ventilator 30% 12/16 1400 99.2 12/16 1354 30 12/16 1300 99.6 12/16 1200 96 Ventilator 30% 12/16 1200 85 16 88/52 96 Ventilator 30% 12/16 1133 99.1 12/16 1115 30 12/16 1100 99.1 Intake & Output 12/17 1600 12/17 0800 12/17 0000 Intake Total 920 760 Output Total 495 2360 Balance 425 -1600 Intake, IV 329 259 Intake, Tube 411 411 Feeding Intake, Tube 180 90 Irrigant Number 0 0 Bowel Movements Output, Urine 495 2360 Physical Exam Other Physical Findings: She appears more awake and responsive on the ventilator ENT vesicular lesions on the lips and on the tongue Neck left IJ triple-lumen catheter with no inflammation at the site Lungs scattered rhonchi bilaterally Heart regular rhythm with no murmur Abdomen is distended, with no obvious tenderness, positive bowel sounds Extremities 1+ edema all extremities William catheter remains in place Results Last 24 Hours of Lab Results: Laboratory Tests 12/17 12/16 0414 1840 Chemistry Sodium (137 - 145 mmol/L) 147 H Potassium (3.5 - 5.1 mmol/L) 3.8 3.9 Chloride (98 - 107 mmol/L) 112 H Carbon Dioxide (22 - 30 mmol/L) 25 Anion Gap (5 - 16) 10 BUN (7 - 17 mg/dL) 25 H Creatinine (0.5 - 1.0 mg/dL) 1.0 Estimated GFR (>60 ml/min) 57 L Glucose (65 - 99 mg/dL) 137 H Calcium (8.4 - 10.2 mg/dL) 7.2 L Phosphorus (2.5 - 4.5 mg/dL) 3.6 Magnesium (1.6 - 2.3 mg/dL) 1.9 1.9 Total Bilirubin (0.2 - 1.3 mg/dL) 0.9 AST (14 - 36 U/L) 58 H ALT (9 - 52 U/L) 194 H Albumin (3.5 - 5.0 g/dL) 2.1 L Hematology CBC w Diff MAN DIFF ORDERED NO MAN DIFF REQ WBC (4.8 - 10.8 /CUMM) 17.6 H 19.0 H RBC (4.20 - 5.40 /CUMM) 2.73 L 2.86 L Hgb (12.0 - 16.0 G/DL) 8.0 L 8.4 L Hct (37 - 47 %) 24.0 L 25.1 L MCV (81.0 - 99.0 FL) 87.8 87.6 MCH (27.0 - 31.0 PG) 29.4 29.4 MCHC (33.0 - 37.0 G/DL) 33.5 33.5 RDW (11.5 - 14.5 %) 14.8 H 15.1 H Plt Count (130 - 400 /CUMM) 148 115 L MPV (7.4 - 10.4 FL) 9.9 10.3 Gran % (42.2 - 75.2 %) 90.6 H 94.5 H Lymphocytes % (20.5 - 51.1 %) 7.3 L 4.7 L Monocytes % (1.7 - 9.3 %) 1.7 0.6 L Eosinophils % (0 - 5 %) 0.4 0.2 Basophils % (0.0 - 2.0 %) 0 0 Absolute Granulocytes (1.4 - 6.5 /CUMM) 15.9 H 17.9 H Segmented Neutrophils (42.2 - 75.2 %) 79 H Band Neutrophils (0.0 - 5.0 %) 9 H Absolute Lymphocytes (1.2 - 3.4 /CUMM) 1.3 0.9 L Lymphocytes (20.5 - 51.1 %) 11 L Monocytes (1.7 - 9.3 %) 1 L Absolute Monocytes (0.10 - 0.60 /CUMM) 0.3 0.1 Absolute Eosinophils (0.0 - 0.7 /CUMM) 0.1 0 Absolute Basophils (0.0 - 0.2 /CUMM) 0 0 Platelet Estimate (ADEQUATE) ADEQUATE Polychromasia 1+ Poikilocytosis 1+ Anisocytosis 1+ Stomatocytes 1+ Elliptocytes FEW Last 24 Hours of Jae Results: Blood cultures 2 December 16 negative Urine culture December 16 negative Sputum culture December 16 light growth of yeast Recent Imaging Studies: CT of the abdomen and pelvis December 16 reveals moderate bilateral pleural effusions with adjacent moderate bibasilar compressive atelectasis with air bronchograms; left renal and UPJ calculi, with a left ureteral stent in the UV junction, with no left hydronephrosis; mild ascites and mild to moderate generalized anasarca Chest x-ray December 17 reveals unchanged airspace opacity over the left lung base, improved aeration at the right lung base and decreased central pulmonary vascular congestion Assessment/Plan ID Impression: Fevers over the past 24 hours, with a persistent, though decreasing, leukocytosis on Ampicillin Day 7 of treatment for a polymicrobial sepsis of urological origin, with Enterococcus, Escherichia coli, Proteus and alpha strep isolated from the blood and urine cultures. The recent CT scan does not reveal any residual focus of infection, with resolution of the left hydronephrosis status post cystoscopy and placement of left ureteral stent 6 days ago, and her repeat cultures are so far negative. She does have oral lesions, suggestive of HSV, which could explain the fevers but not likely the leukocytosis. She has overall improved, though she continues to require low-dose pressors and alternatives to her left IJ catheter will need to be considered. Suggestion: 1. Would proceed with placement of a PICC so that the left IJ can be removed 2. Follow-up recent cultures 3. Remove William catheter when okay with Urology 4. Begin Acyclovir 250 mg IV every 8 hours 5. Continue Ampicillin
--- NOTE | 2017-12-17 10:59 | PN- Urology ---
Subjective Subjective: Remains intubated and on low dose pressors. Has had fever to 101 over last 24 hours Objective Vital Signs and I&Os Vital Signs Date Time Temp Pulse Resp B/P B/P Pulse O2 O2 Flow FiO2 Mean Ox Delivery Rate 12/17 0859 99.0 12/17 0800 101.2 12/17 0553 30 12/17 0534 110 14 94/64 12/17 0410 30 12/17 0400 96 Ventilator 30% 12/17 0200 99.7 12/17 0143 30 12/17 0123 101.3 12/17 0000 94 Ventilator 30% 12/16 2300 101.3 99 21 90/52 94 Ventilator 30% 12/16 2205 30 12/16 2000 96 Ventilator 30% 12/16 1905 100.0 12/16 1905 100.0 12/16 1841 35 12/16 1814 101.5 12/16 1813 101.5 12/16 1638 30 12/16 1600 98.4 101 19 98/60 97 Ventilator 30% 12/16 1600 97 Ventilator 30% 12/16 1400 99.2 12/16 1354 30 12/16 1300 99.6 12/16 1200 96 Ventilator 30% 12/16 1200 85 16 88/52 96 Ventilator 30% 12/16 1133 99.1 12/16 1115 30 12/16 1100 99.1 Intake & Output 12/17 1600 12/17 0800 12/17 0000 12/16 1600 12/16 0800 12/16 0000 Intake Total 163 096 3034 659 540 Output Total 495 2360 400 650 550 Balance 425 -1600 929 9 -10 Intake, IV 329 259 495 151 150 Intake, Tube 411 411 354 393 210 Feeding Intake, Tube 180 90 480 115 180 Irrigant Number 0 0 Bowel Movements Output, Urine 495 2360 400 650 550 Patient 126 lb Weight Weight Bed scale Measurement Method Back: No CVA tenderness Abd: soft Genitalia: cerna in place. Draining clear urine CT images reviewed. L ureteral stent in place. Distal end not completely coiled in bladder. Proximal portion bypasses stone and is coiled in L kidney. Creatinine and thrombocytopenia improved. Still with leukocytosis Laboratory Tests 12/17 12/16 0414 1840 Chemistry Sodium (137 - 145 mmol/L) 147 H Potassium (3.5 - 5.1 mmol/L) 3.8 3.9 Chloride (98 - 107 mmol/L) 112 H Carbon Dioxide (22 - 30 mmol/L) 25 Anion Gap (5 - 16) 10 BUN (7 - 17 mg/dL) 25 H Creatinine (0.5 - 1.0 mg/dL) 1.0 Estimated GFR (>60 ml/min) 57 L Glucose (65 - 99 mg/dL) 137 H Calcium (8.4 - 10.2 mg/dL) 7.2 L Phosphorus (2.5 - 4.5 mg/dL) 3.6 Magnesium (1.6 - 2.3 mg/dL) 1.9 1.9 Total Bilirubin (0.2 - 1.3 mg/dL) 0.9 AST (14 - 36 U/L) 58 H ALT (9 - 52 U/L) 194 H Albumin (3.5 - 5.0 g/dL) 2.1 L Hematology CBC w Diff MAN DIFF ORDERED NO MAN DIFF REQ WBC (4.8 - 10.8 /CUMM) 17.6 H 19.0 H RBC (4.20 - 5.40 /CUMM) 2.73 L 2.86 L Hgb (12.0 - 16.0 G/DL) 8.0 L 8.4 L Hct (37 - 47 %) 24.0 L 25.1 L MCV (81.0 - 99.0 FL) 87.8 87.6 MCH (27.0 - 31.0 PG) 29.4 29.4 MCHC (33.0 - 37.0 G/DL) 33.5 33.5 RDW (11.5 - 14.5 %) 14.8 H 15.1 H Plt Count (130 - 400 /CUMM) 148 115 L MPV (7.4 - 10.4 FL) 9.9 10.3 Gran % (42.2 - 75.2 %) 90.6 H 94.5 H Lymphocytes % (20.5 - 51.1 %) 7.3 L 4.7 L Monocytes % (1.7 - 9.3 %) 1.7 0.6 L Eosinophils % (0 - 5 %) 0.4 0.2 Basophils % (0.0 - 2.0 %) 0 0 Absolute Granulocytes (1.4 - 6.5 /CUMM) 15.9 H 17.9 H Segmented Neutrophils (42.2 - 75.2 %) 79 H Band Neutrophils (0.0 - 5.0 %) 9 H Absolute Lymphocytes (1.2 - 3.4 /CUMM) 1.3 0.9 L Lymphocytes (20.5 - 51.1 %) 11 L Monocytes (1.7 - 9.3 %) 1 L Absolute Monocytes (0.10 - 0.60 /CUMM) 0.3 0.1 Absolute Eosinophils (0.0 - 0.7 /CUMM) 0.1 0 Absolute Basophils (0.0 - 0.2 /CUMM) 0 0 Platelet Estimate (ADEQUATE) ADEQUATE Polychromasia 1+ Poikilocytosis 1+ Anisocytosis 1+ Stomatocytes 1+ Elliptocytes FEW Assessment/Plan Assessment/Plan Imp: 1. Urosepsis due to UTI and obstructing L UPJ stone. Improved following L ureteral stent placement however still on low dose pressors and fever for last 24 hours Plan: 1. Would leave cerna for next 24-48 hours 2. Abx per ID 3. Agree with removal of IJ line and insertion of PICC 4. f/u repeat cultures
[2017-12-17 16:00] VITALS: BP 104/60
--- NOTE | 2017-12-17 17:42 | Event Note ---
Event Note Event Note: I spoke with patient's guardians (2 brothers and sister in law- Tom Shoemaker) about patient's update, including her blood pressure status and respiratory status. The patient has been off the LEVOPHED since 2 PM today and her BP has been stable after that. We had tried weaning trial for a brief period earlier today as well when her respiratory rate went up to 40, after which we had to put her back on ventilatory support. Also, they were updated about the raised temperature since yesterday, the potential source of which could be multiple and we were trying to rule out the sources, triple-lumen central line being one of the possibility. Since the patient does no longer require levophed currently, but cannot guarantee that she would require within the next 24 hours, the ideal thing would be to take the ( suspected infected) central line off and place a new one in, or at least place a PICC line in, so that she can have levophed in case her blood pressure decreases , requiring pressor-support. At which point, the guardians all confirmed (speakerphone over phone and also had met Navid in-person today) to me that they do NOT want the patient to be back on any kind of blood pressure support medication even though it is a single medication. Also, they do not want any central line to be placed including a PICC line in that case. They understood that IV fluids could still be given to try to maintain her blood pressure to only limited extent, and also requested that the triple-lumen catheter being left in place for the night and the family would try to meet with the hired help tomorrow. Involved parties seemed to understand the situation, treatment choices, including stopping blood pressure support or central line system, which is usually given in life threatening situations, and stopping could mean of a person. The code status has not been changed as of now but will discuss about that tomorrow during the meeting. Updated the details also to the hired help Dr Matty Penaloza by me at 1800 hrs. -Fernandez Geiger MD PGY2 Resident, ICU
[2017-12-18] VITALS: BP 110/60
[2017-12-18 05:26] LABS: ABSOLUTE BASOPHIL COUNT 0 /CUMM (0.0-0.2); ABSOLUTE EOSINOPHIL COUNT 0 /CUMM (0.0-0.7); ABSOLUTE GRANULOCYTE CT 10.6 /CUMM (1.4-6.5); ABSOLUTE LYMPH COUNT 0.9 /CUMM (1.2-3.4); ABSOLUTE MONOCYTE COUNT 0.3 /CUMM (0.10-0.60); BASOPHIL % 0.3 % (0.0-2.0); EOSINOPHIL % 0.2 % (0-5); GRANULOCYTE % 89.7 % (42.2-75.2); MEAN CORPUSCULAR HGB 29.3 PG (27.0-31.0); MEAN CORPUSCULAR HGB CONC 33.2 G/DL (33.0-37.0); MEAN CORPUSCULAR VOLUME 88.3 FL (81.0-99.0); MEAN PLATELET VOLUME 9.9 FL (7.4-10.4); PLATELET COUNT 164 /CUMM (130-400); RBC DISTRIBUTION WIDTH 15.2 % (11.5-14.5); RED BLOOD CELL CT 2.38 /CUMM (4.20-5.40); WHITE BLOOD CELL COUNT 11.8 /CUMM (4.8-10.8)
--- NOTE | 2017-12-18 06:23 | RADIOLOGY REPORT ---
EXAMINATION: XR PORTABLE CHEST CLINICAL INFORMATION: Intubation. COMPARISON: Chest x-ray December 17, 2017, 5:34 AM TECHNIQUE: Portable frontal view of the chest was obtained. 5:51 AM FINDINGS: The apex of the lungs is not included in the study. Endotracheal tube catheter is approximately 2.5 cm above the channing. Nasogastric tube in stomach. There is persistent mild central pulmonary vascular congestion. The airspace disease at the left lung base has improved in aeration though there is some residual opacity remaining. There is worsening airspace opacity throughout the right lung base with increasing density at the medial infrahilar region. IMPRESSION: Endotracheal tube 2.5 cm above channing. Nasogastric tube in stomach. Improving aeration of airspace opacity at left lung base. Worsening airspace opacity right lung base.
--- NOTE | 2017-12-18 07:20 | PN- Resident CRCU ---
Fely CASTILLO,Fernandez 12/18/17 0719: Subjective HPI/CRCU Issues: Patient is still in the ICU requiring mechanical ventilatory support. The client Patient followed up in examined by me today. She is restless in bed, intubated with a chemical ventilation, ET tube in place, OG tube in place, William in place, triple-lumen in left IJV still in place, Alps in place. She is forming scabs over the original red rash at the lips. VSS. 24 Hour Events: Her IV Levophed has been off since yesterday 2 pm. Family updated yesterday about patient's condition. Family also requested to keep the triple-lumen catheter for a day and possibly take it off after the discussions about goals of care later today at 3pm. Objective Vital Signs & I&O Last 8 Hrs of Vitals and I&O: Vital Signs Date Time Temp Pulse Resp B/P B/P Pulse O2 O2 Flow FiO2 Mean Ox Delivery Rate 12/18 1109 30 12/18 1034 100.5 12/18 0900 100.8 12/18 0856 100.8 12/18 0821 30 12/18 0800 100.7 110 17 102/60 95 Ventilator 30% 12/18 0800 95 Ventilator 30% 12/18 0741 100.7 12/18 0552 30 12/18 0400 97 Ventilator 30% 12/18 0342 30 12/18 0102 30 12/18 0000 98 Ventilator 30% 12/18 0000 98.1 108 16 110/60 98 Ventilator 30% 12/17 2219 30 12/17 2000 30 12/17 2000 96 Ventilator 30% 12/17 1812 98.9 12/17 1655 30 12/17 1653 100.4 12/17 1600 97 Ventilator 30% 12/17 1600 100.4 100 20 104/60 97 Ventilator 30% 12/17 1432 30 12/17 1200 97 Ventilator 30% Exam General Appearance: well developed/nourished, awake, anxious, intubated Other Physical Findings: HEENT: NCAT, MMM, ET/OG tube, lip lesions are forming scabs CARD: Normal S1/S2 w/o m/g/r PULM: Scattered basilar rhonchi (Mech Vent) ABD: Soft, NT, ND, BS+ : William catheter draining urine NEURO: Spontaneous movement of all extremities, eye opening + EXT: Normal pulses, bilateral upper extremity soft restraints ET tube, OG tube, William in situ, triple-lumen catheter in left IJV. No signs of leakage or inflammation around. Weaning Parameters NIF: 39 Minute Volume: 7.51 Resp rate: 33 Vt: 225 Heart Rate: 112 Central Line Site: Left IJV William Site: Yes Current Medications: Current Medications Sig/Dayday Start time Last Medication Dose Route Stop Time Status Admin Acetaminophen 1,000 MG Q6P PRN 12/16 1815 AC 12/18 N/A 1 UNIT IV 0741 Acyclovir 250 MG Q8 12/17 1400 CAN IV Acyclovir 250 MG Q8H 12/17 1400 AC 12/18 Dextrose/Water 100 ML IV 0543 Ampicillin 2,000 MG Q6H 12/17 1100 AC 12/18 Sodium Chloride 100 ML IV 1115 Ampicillin 2,000 MG Q6 12/16 1800 DC 12/17 Sodium Chloride 100 ML IV 1049 Artificial Tears 2 GTT TID 12/11 1600 AC 12/18 OPH 0847 Bisacodyl 10 MG DAILY PRN 12/18 1015 AC 12/18 PA 1030 Bisacodyl 10 MG DAILY PRN 12/16 1730 AC PO Dextrose/Sodium 1,000 ML Q13H 12/17 1615 DC 12/17 Chloride IV 12/18 0514 1659 Docusate Sodium 100 MG BID PRN 12/16 1730 AC PO Lorazepam 1 MG Q4P PRN 12/11 1500 AC 12/18 IV 0741 Magnesium Sulfate 1 GM Q2H 12/18 0815 AC 12/18 Dextrose/Water 100 ML IV 12/18 1214 1009 Neomycin/Polymyxin/ 1 MAGDALENA 0000,0800,1600 12/16 1600 AC 12/18 Bacitracin EXT 0741 Norepinephrine 8 MG Q14H 12/16 1030 DC 12/17 Dextrose/Water 250 ML IV 0534 Pantoprazole Sodium 40 MG Q24H 12/11 0315 AC 12/18 IV 0257 Petrolatum 1 MAGDALENA DAILY AC PRN 12/13 1130 AC 12/15 TOP 0559 Phosphate 250 MG PC AND AT BEDTIME 12/18 0900 AC 12/18 PO 12/18 2300 0936 Polyethylene Glycol 17 GM DAILY 12/16 1723 AC 12/18 PO 0847 Potassium Chloride 40 MEQ ONCE ONE 12/18 0815 DC 03/20 PO 12/18 0816 0847 Sodium Chloride 500 ML BOLUS ONE 12/17 1215 DC 12/17 IV 12/17 1314 1215 Impression/Plan Impression/Problem List Impression: 57 year old non-verbal woman with significant past medical history of cerebral palsy seen for evaluation of altered mental status, weakness, and vomiting. CT abdomen/pelvis identified obstructive uropathy with severe hydronephrosis with perinephric stranding concerning for pyelonephritis versus forniceal rupture. Patient continues to improve slowly in terms of septic shock 2/2 UTI while on Ampicillin. She is off pressor since yesterday. Creatinnie continues to improve. Sodium is again elevated for which free waterhas been added. She remains intubated on minimal vent settings. We tried weaning trial with PEEP 5 for the first time yesterday but her rr went up to 40, after which the trial was aborted. Ativan used for agitation. Platelets improving at 135 today. Tube feeds continuing. Family updated constantly. T max 100.7. Problem List -Severe Sepsis or Urologic Origin, improving -Obstructive left sided uropathy with hydronephrosis s/p stent -Metabolic acidosis, resolved -Anemia, H/h 6.9/21.0, no permission to transfuse blood -Elevated lactic acid, resolved -Hypernatremia -Acute Kidney Injury, improving (Cr 0.9 today) -Acute Hypoxic Respiratory Failure s/p intubation -Hyperbilirubinemia, improving (total bili 0.7 today) -Transaminitis, improving -Thrombocytopenia, improving 164 -History of Cerebral palsy, non-verbal at baseline Plan -ICU Care -Avoid Nephrotoxic agents / NSAIDS -Accuchecks Q4H -Intubated, on Vent: VT 450, FiO2 30%, 16 RR , PEEP 5, pt has spontaneous breaths as well -LIJ TLC to be taken out later today/ William Catheter / OGT -Levophed stopped since yesterday 2 pm -Protonix 40 mg IV Daily -Ampicillin 2 g IV Q6H per ID -Acyclovir 250 mg q8h -Ativan 1 mg IV Q4H PRN sedation -Urology following for obstructive uropathy, plans to get proper Urologic procedure after she is stable -ID following for antibiotic recommendations -Follow cultures & sensitivities -UCx: E coli, Proteus, Enterococcus -Type & Cross -Daily CMP, CBC, ABG, CXR -NPO, continuing tube feeds -DVT PPx with ALPS -DNR, patients brother Tom is conservator #Having family meeting later today at 3 pm. Problem List: 1. Respiratory failure requiring intubation 2. Anemia Pain Ratin (cannot assess) Tomorrow's Labs & Rationales: CBC, ICU bundle (sepsis), ABG, CXR (intubated) Plan DVT/Prophylaxis: mechanical, pharmacological (thrombocytopenia) Matty Penaloza MD 12/18/17 0949: Attending MD Review Statement Attending Sign Off Attending Cosign Statement: I have: examined this patient, reviewed avalbl EMR data, personally reviewd images, discussd w/resident/PA/POT SANDER, discussed mgmt plan w/angélica, discussed mgmt plan w/CM, discussed mgmt plan w/pt, agreed w/resident/PA/POT SANDER, amended to note. Other Findings: IMatty M.D. have examined this patient, reviewed available EMR data, personally reviewed images, discussed with resident/PA/POT SANDER, discussed management plan with housestaff and nursing staff, discussed managment plan all of healthcare providers, discussed management plan with patient and/or family, agreed with resident/PA/POT SANDER. The past history and parts of the chart have been autopopulated. Impression 57-year-old woman with cerebral palsy and nonverbal at baseline * Septic shock secondary to infection of urological origin - E.Coli/Enterococcus Plan Respiratory -cont mechanical ventilation, spontaneous breathing trials ID -ID consultation appreciated -cont abx per ID -f/u all cx -acyclovir ?herpetic lesions CVS -monitor hemodynamics -titrate pressors as tolerated -MAP 65 goal Heme -monitor cbc, coags Metabolic -monitor ins/outs -electrolytes, creatinine Alimentary -tube feeding, free water flushes Neuro -sedate if necessary TTS 35 min TTS 35 min
[2017-12-18 08:00] VITALS: BP 102/60
--- NOTE | 2017-12-18 10:21 | PN- Infect Dx ---
Subjective Subjective: MAXIMUM TEMPERATURE 101.2. Her blood pressure is stable off pressors. Discussion with family noted, with no plans for any further aggressive management. Objective Last 24 Hrs of Vital Signs/I&O Vital Signs Date Time Temp Pulse Resp B/P B/P Pulse O2 O2 Flow FiO2 Mean Ox Delivery Rate 12/18 0900 100.8 12/18 0856 100.8 12/18 0821 30 12/18 0800 100.7 110 17 102/60 95 Ventilator 30% 12/18 0800 95 Ventilator 30% 12/18 0741 100.7 12/18 0552 30 12/18 0400 97 Ventilator 30% 12/18 0342 30 12/18 0102 30 12/18 0000 98 Ventilator 30% 12/18 0000 98.1 108 16 110/60 98 Ventilator 30% 12/17 2219 30 12/17 2000 30 12/17 2000 96 Ventilator 30% 12/17 1812 98.9 12/17 1655 30 12/17 1653 100.4 12/17 1600 97 Ventilator 30% 12/17 1600 100.4 100 20 104/60 97 Ventilator 30% 12/17 1432 30 12/17 1200 97 Ventilator 30% 12/17 1101 30 Intake & Output 12/18 1600 12/18 0800 12/18 0000 Intake Total 1147 1305 Output Total 500 425 Balance 647 880 Intake, IV 600 685 Intake, Tube 367 440 Feeding Intake, Tube 180 180 Irrigant Output, Urine 500 425 Patient 131 lb Weight Weight Bed scale Measurement Method Physical Exam Other Physical Findings: She is intermittently responsive on the ventilator HEENT vesicular lesions on the lips and tongue persist Neck left IJ triple-lumen catheter remains in place with no inflammation at the site Lungs are clear Heart regular rhythm with no murmur Abdomen is distended, nontender with positive bowel sounds Extremities 1+ edema both lower extremities William catheter remains in place Results Last 24 Hours of Lab Results: Laboratory Tests 12/18 12/18 0650 0352 Blood Gas pH (7.35 - 7.45 PH) 7.48 H pCO2 (35 - 45 TORR) 30 L pO2 (80 - 100 TORR) 86 HCO3 (21 - 28 MEQ/L) 22 ABG O2 Sat (Measured) (>96.0 %) 97.0 P-50 (Temp Corrected) N Carboxyhemoglobin (1.5 - 5.0 %) 0.3 L O2 Concentration % .30 Respiration Rate (BPM) 14 O2 Delivery Method VENT Vent Mode A/C Expiratory Pressure (CMH2O/P) 5 Tidal Volume (CC) 450 Chemistry Sodium (137 - 145 mmol/L) 149 H Potassium (3.5 - 5.1 mmol/L) 3.7 Chloride (98 - 107 mmol/L) 113 H Carbon Dioxide (22 - 30 mmol/L) 24 Anion Gap (5 - 16) 11 BUN (7 - 17 mg/dL) 20 H Creatinine (0.5 - 1.0 mg/dL) 0.9 Estimated GFR (>60 ml/min) > 60 Glucose (65 - 99 mg/dL) 135 H Calcium (8.4 - 10.2 mg/dL) 7.1 L Phosphorus (2.5 - 4.5 mg/dL) 3.4 Magnesium (1.6 - 2.3 mg/dL) 1.7 Total Bilirubin (0.2 - 1.3 mg/dL) 0.7 AST (14 - 36 U/L) 47 H ALT (9 - 52 U/L) 143 H Albumin (3.5 - 5.0 g/dL) 2.0 L Hematology CBC w Diff MAN DIFF ORDERED WBC (4.8 - 10.8 /CUMM) 11.8 H RBC (4.20 - 5.40 /CUMM) 2.38 L Hgb (12.0 - 16.0 G/DL) 6.9 *L Hct (37 - 47 %) 21.0 L MCV (81.0 - 99.0 FL) 88.3 MCH (27.0 - 31.0 PG) 29.3 MCHC (33.0 - 37.0 G/DL) 33.2 RDW (11.5 - 14.5 %) 15.2 H Plt Count (130 - 400 /CUMM) 164 MPV (7.4 - 10.4 FL) 9.9 Gran % (42.2 - 75.2 %) 89.7 H Lymphocytes % (20.5 - 51.1 %) 7.3 L Monocytes % (1.7 - 9.3 %) 2.5 Eosinophils % (0 - 5 %) 0.2 Basophils % (0.0 - 2.0 %) 0.3 Absolute Granulocytes (1.4 - 6.5 /CUMM) 10.6 H Segmented Neutrophils (42.2 - 75.2 %) 91 H Absolute Lymphocytes (1.2 - 3.4 /CUMM) 0.9 L Lymphocytes (20.5 - 51.1 %) 6 L Monocytes (1.7 - 9.3 %) 2 Absolute Monocytes (0.10 - 0.60 /CUMM) 0.3 Eosinophils (0 - 5.0 %) 1 Absolute Eosinophils (0.0 - 0.7 /CUMM) 0 Absolute Basophils (0.0 - 0.2 /CUMM) 0 Platelet Estimate (ADEQUATE) ADEQUATE Polychromasia 1+ Poikilocytosis 1+ Ovalocytes 1+ Miscellaneous Phlebotomy Draw Site RIGHT RADIAL Other Body Source Fld Total RBCs Counted (%) 100 Last 24 Hours of Jae Results: Urine culture December 16 negative Blood cultures 2 December 16 negative Recent Imaging Studies: Chest x-ray December 18 reveals improved aeration at the left lung base Assessment/Plan ID Impression: Low-grade fevers persist, 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 She remains on Ampicillin Day 8 of treatment for a polymicrobial sepsis of urological origin, with Enterococcus, Escherichia coli, Proteus and alpha strep isolated from the blood and urine cultures, now 1 week status post cystoscopy and placement of a left ureteral stent for left hydronephrosis, which has resolved on her recent CT scan, with normalization of her renal function. Her anemia is of unclear etiology but, given the decision not to pursue aggressive management, further workup is not likely to be indicated. Suggestion: 1. Would remove left IJ triple-lumen catheter 2. Further management with regard to overall level of care per the ICU team 3. Continue Ampicillin and Acyclovir pending above
[2017-12-18 12:00] VITALS: BP 100/54
[2017-12-18 16:00] VITALS: BP 106/64
--- NOTE | 2017-12-18 17:03 | Event Note ---
Event Note Event Note: I spoke with patient's guardians (2 brothers and sister in law- Tom Shoemaker Kris) about patient's current status comprehensively. We spoke about the situation of the patient that the patient is now off pressor support, but is still requiring a ventilatory support, and also she and recently developed fever, requiring the removal of IJ catheter, along with her other medical conditions including polymicrobial sepsis of urologic origin with enterococcus, E coli, Proteus and alpha strep, anemia, HSV stomatitis. Thrombocytopenia improving. Her medical condition was explained in lay person's terms, in detail, and was also summarized during the discussion. After extensive discussion, the family members, including all 3 of the conversions, decided to continue with ventilatory support as of now, together with continued trial of weaning from ventilator understanding that she is doing poorly as of now, until Sunday, when they would again be notified about the condition, but at the same time the patient would be extubated. The plan laid out by the legal guardians clearly tells that she would be of the ET tube on Sunday, and if she does not tolerate it, would not intubate, and time allowing, would go for comfort measures/hospice care. However, if the patient can make it after extubation on Sunday, her clinical care would continue, with following conditions: * DO NOT RESUSCITATE * DO NOT INTUBATE * Do not place a central venous line * Do not use blood pressure supporting medications * Use of transfusion of blood products has to be evaluated as needed basis then. The family members were answered for all the questions, and sufficient time given for the family members to discuss amongst themselves and let us know. * TLC to be taken out today. Updated the details also to the orthotic and prosthetic technician Dr Matty Penaloza by me at 1800 hrs. -Feranndez Geiger MD PGY2 Resident, ICU PGY2 Resident, ICU would require within the next 24 hours, the ideal thing would be to take the ( suspected infected) central line off and place a new one in, or at least place a PICC line in, so that she can have levophed in case her blood pressure decreases , requiring pressor-support. At which point, the guardians all confirmed (speakerphone over phone and also had met Navid in-person today) to me that they do NOT want the patient to be back on any kind of blood pressure support medication even though it is a single medication. Also, they do not want any central line to be placed including a PICC line in that case. They understood that IV fluids could still be given to try to maintain her blood pressure to only limited extent, and also requested that the triple-lumen catheter being left in place for the night and the family would try to meet with the orthotic and prosthetic technician tomorrow. Involved parties seemed to understand the situation, treatment choices, including stopping blood pressure support or central line system, which is usually given in life threatening situations, and stopping could mean of a person. The code status has not been changed as of now but will discuss about that tomorrow during the meeting. Updated the details also to the orthotic and prosthetic technician Dr Matty Penaloza by me at 1800 hrs. -Fernandez Geiger MD PGY2 Resident, ICU
[2017-12-19] VITALS: BP 102/60
[2017-12-19 04:17] LABS: ABSOLUTE BASOPHIL COUNT 0 /CUMM (0.0-0.2); ABSOLUTE EOSINOPHIL COUNT 0 /CUMM (0.0-0.7); ABSOLUTE LYMPH COUNT 1.5 /CUMM (1.2-3.4); BASOPHIL % 0.1 % (0.0-2.0); MEAN CORPUSCULAR VOLUME 87.4 FL (81.0-99.0); MEAN PLATELET VOLUME 9.2 FL (7.4-10.4)
[2017-12-19 04:23] LABS: ABSOLUTE GRANULOCYTE CT 11.5 /CUMM (1.4-6.5); ABSOLUTE MONOCYTE COUNT 0.5 /CUMM (0.10-0.60); EOSINOPHIL % 0.3 % (0-5); HEMATOCRIT 21.7 % (37-47); MEAN CORPUSCULAR HGB 28.8 PG (27.0-31.0); PLATELET COUNT 225 /CUMM (130-400); RBC DISTRIBUTION WIDTH 15.5 % (11.5-14.5); RED BLOOD CELL CT 2.48 /CUMM (4.20-5.40); WHITE BLOOD CELL COUNT 13.5 /CUMM (4.8-10.8)
--- NOTE | 2017-12-19 07:00 | PN- Resident CRCU ---
Fely CASTILLO,Fernandez 12/19/17 0700: Subjective HPI/CRCU Issues: Patient is still in the ICU requiring mechanical ventilatory support. Patient followed up in examined by me today. She is restless in bed, intubated with mechanical ventilation, ET tube in place, OG tube in place, William in place, Alps in place. She is forming scabs over the original red rash at the lips. Febrile occassionally over 24 hrs. 24 Hour Events: Febrile , tmax 100.8 Objective Vital Signs & I&O Last 8 Hrs of Vitals and I&O: Vital Signs tmax 100.4 Date Time Temp Pulse Resp B/P B/P Pulse O2 O2 Flow FiO2 Mean Ox Delivery Rate 12/19 0611 30 12/19 0400 96 Ventilator 30% 12/19 0300 30 12/19 0049 30 12/19 0000 96 Ventilator 30% 12/19 0000 97.1 93 16 102/60 96 Ventilator 30% 12/18 2236 30 12/18 2030 96 Ventilator 30% 12/18 1935 30 12/18 1815 99.0 12/18 1732 100.4 / 1632 30 12/18 1600 99.9 110 14 106/64 93 Ventilator 30% 12/18 1600 93 Ventilator 30% 12/18 1357 30 12/18 1200 98 Ventilator 30% 12/18 1200 98.1 97 14 100/54 98 Ventilator 30% 12/18 1109 30 12/18 1034 100.5 / 0900 100.8 / 0856 100.8 / 0821 30 12/18 0800 100.7 110 17 102/60 95 Ventilator 30% 12/18 0800 95 Ventilator 30% 12/18 0741 100.7 Exam General Appearance: well developed/nourished, awake, anxious, intubated Other Physical Findings: HEENT: NCAT, MMM, ET/OG tube, lip lesions are forming scabs SKIN: lip lesion forming scab CARD: Normal S1/S2 w/o m/g/r PULM: Scattered basilar rhonchi (Mech Vent) ABD: Soft, NT, ND, BS+ : William catheter draining urine NEURO: Spontaneous movement of all extremities, eye opening + EXT: Normal pulses, bilateral upper extremity soft restraints ET tube, OG tube, William in situ. No signs of leakage or inflammation around. Weaning Parameters NIF: 30 Minute Volume: 8.50 Resp rate: 42 Vt: 200 Heart Rate: 104 Current Medications: Current Medications Sig/Dayday Start time Last Medication Dose Route Stop Time Status Admin Acetaminophen 1,000 MG .STK-MED ONE 12/19 0740 DC IV 12/19 0741 Acetaminophen 1,000 MG Q6P PRN 12/16 1815 AC 12/19 N/A 1 UNIT IV 0747 Acyclovir 250 MG Q8H 12/17 1400 AC 12/19 Dextrose/Water 100 ML IV 1426 Ampicillin 2,000 MG Q6H 12/17 1100 AC 12/19 Sodium Chloride 100 ML IV 1739 Artificial Tears 2 GTT TID 12/11 1600 AC 12/19 OPH 1551 Bisacodyl 10 MG DAILY PRN 12/18 1015 AC 12/18 SD 1030 Bisacodyl 10 MG DAILY PRN 12/16 1730 AC PO Docusate Sodium 100 MG BID PRN 12/16 1730 AC PO Furosemide 20 MG ONCE ONE 12/19 1215 DC 12/19 IV 12/19 1216 1210 Lorazepam 1 MG Q4P PRN 12/11 1500 AC 12/19 IV 1739 Morphine Sulfate 2 MG Q4 HRS NEEDED PRN 12/19 1030 AC 12/19 IV 1426 Neomycin/Polymyxin/ 1 MAGDALENA 0000,0800,1600 12/16 1600 AC 12/19 Bacitracin EXT 1542 Pantoprazole Sodium 40 MG Q24H 12/11 0315 AC 12/19 IV 0249 Petrolatum 1 MAGDALENA DAILY AC PRN 12/13 1130 AC 12/15 TOP 0559 Phosphate 250 MG PC AND AT BEDTIME 12/18 0900 DC 12/18 PO 12/18 2300 2132 Polyethylene Glycol 17 GM DAILY 12/16 1723 AC 12/19 PO 0900 CXR Findings: IMPRESSION: 1. Endotracheal tube 3.6 and is above channing. 2. Persistent left basilar hazy infiltrate. DICTATED BY: Damien Hoskins MD DATE/TIME DICTATED:12/19/17654 TRAINING DEVELOPMENT MANAGER:NAVI DATE/TIME TRANSCRIBED:12/19/17654 Impression/Plan Impression/Problem List Impression: 57 year old non-verbal woman with significant past medical history of cerebral palsy seen for evaluation of altered mental status, weakness, and vomiting. CT abdomen/pelvis identified obstructive uropathy with severe hydronephrosis with perinephric stranding concerning for pyelonephritis versus forniceal rupture. Patient continues to improve slowly but has been febrile while on Ampicillin. She is off pressor since 12/17/17. Creatinnie continues to improve. Sodium dropped by ten units, not treating with aggressive free water flushes, but will continue tube feeding protocol. She remains intubated on minimal vent settings. We tried weaning trial again today, she tolerated for less than five minutes. Morphine now used for agitation instead of ativan. Platelets improving at 225 today. Tube feeds continuing. Family updated constantly, including about fever while on current antibiotics. POA decided with current treatment until Sunday, until extubation. T max 100.8. Problem List -Severe Sepsis or Urologic Origin, improving BP but febrile on current abx -Obstructive left sided uropathy with hydronephrosis s/p stent -Metabolic acidosis, resolved -Anemia, H/h 7.2/21.7, no permission to transfuse blood -Elevated lactic acid, resolved -Hypernatremia, resolved -Acute Kidney Injury, improving (Cr 0.8 today) -Acute Hypoxic Respiratory Failure s/p intubation -Hyperbilirubinemia, improving (total bili 0.7 today) -Transaminitis, improving -Thrombocytopenia, improving 225 -History of Cerebral palsy, non-verbal at baseline Plan -ICU Care -Avoid Nephrotoxic agents / NSAIDS -Accuchecks Q4H -Intubated, on Vent: VT 450, FiO2 30%, 16 RR , PEEP 5, pt has spontaneous breaths as well -William Catheter / OGT -Protonix 40 mg IV Daily -Ampicillin 2 g IV Q6H per ID -Acyclovir 250 mg q8h -Ativan 1 mg IV Q4H PRN sedation, Inj Morphine 2 mg q4PRN for agitation/anxiety started, working well -Urology following for obstructive uropathy, plans to get proper Urologic procedure after she is stable -ID following for antibiotic recommendations -Follow cultures & sensitivities -UCx: E coli, Proteus, Enterococcus -Type & Cross -Daily CMP, CBC, ABG, CXR -NPO, continuing tube feeds -DVT PPx with ALPS -DNR, patients brother Tom is conservator Problem List: 1. Respiratory failure requiring intubation 2. Sepsis Pain Ratin (not able to assess) Tomorrow's Labs & Rationales: CBC, ICU Bundle, ABG, CXR Plan DVT/Prophylaxis: mechanical, pharmacological (thrombocytopenia) Matty Penaloza MD 12/19/17 1033: Attending MD Review Statement Attending Sign Off Attending Cosign Statement: I have: examined this patient, reviewed avalbl EMR data, personally reviewd images, discussd w/resident/PA/PROFESSIONAL SKATER, discussed mgmt plan w/angélica, discussed mgmt plan w/CM, discussed mgmt plan w/pt, agreed w/resident/PA/PROFESSIONAL SKATER, amended to note. Other Findings: IMatty M.D. have examined this patient, reviewed available EMR data, personally reviewed images, discussed with resident/PA/PROFESSIONAL SKATER, discussed management plan with housestaff and nursing staff, discussed managment plan all of healthcare providers, discussed management plan with patient and/or family, agreed with resident/PA/PROFESSIONAL SKATER. The past history and parts of the chart have been autopopulated. Impression 57-year-old woman with cerebral palsy and nonverbal at baseline * Septic shock secondary to infection of urological origin - E.Coli/Enterococcus Plan Respiratory -cont mechanical ventilation, spontaneous breathing trials ID -ID consultation appreciated -cont abx per ID - ampicillin/acyclovir -f/u all cx -acyclovir ?herpetic lesions CVS -monitor hemodynamics -titrate pressors as tolerated -MAP 65 goal Heme -monitor cbc, coags Metabolic -monitor ins/outs -electrolytes, creatinine Alimentary -tube feeding, free water flushes Neuro -sedate if necessary TTS 35 min No escalation of care, if no improvement by Sunday, family weighing option of terminal extubation.
--- NOTE | 2017-12-19 07:00 | RADIOLOGY REPORT ---
EXAMINATION: XR PORTABLE CHEST CLINICAL INFORMATION: Intubation. COMPARISON: Chest x-ray December 18, 2017, December 17, 2017. TECHNIQUE: Portable frontal view of the chest was obtained. 6:02 AM FINDINGS: Endotracheal tube catheter about 3.6 cm above the channing. Nasogastric tube in stomach. Lung volume is low. There is pulmonary vascular congestion that is similar to prior studies. Haziness at lung bases present bilaterally. On the chest x-ray of December 17, 2017 an infiltrate was evident at the left lung base. This is similar on today's exam. There is only subtle hazy density the right lung base on this exam which is likely due to the low inspiration. IMPRESSION: 1. Endotracheal tube 3.6 and is above channing. 2. Persistent left basilar hazy infiltrate.
[2017-12-19 08:00] VITALS: BP 106/60
--- NOTE | 2017-12-19 08:57 | PN- Infect Dx ---
Subjective Subjective: MAXIMUM TEMPERATURE 100.8. Objective Last 24 Hrs of Vital Signs/I&O Vital Signs Date Time Temp Pulse Resp B/P B/P Pulse O2 O2 Flow FiO2 Mean Ox Delivery Rate 12/19 0747 100.8 12/19 0611 30 12/19 0400 96 Ventilator 30% 12/19 0300 30 12/19 0049 30 12/19 0000 96 Ventilator 30% 12/19 0000 97.1 93 16 102/60 96 Ventilator 30% 12/18 2236 30 12/18 2030 96 Ventilator 30% 12/18 1935 30 12/18 1815 99.0 12/18 1732 100.4 12/18 1632 30 12/18 1600 99.9 110 14 106/64 93 Ventilator 30% 12/18 1600 93 Ventilator 30% 12/18 1357 30 12/18 1200 98 Ventilator 30% 12/18 1200 98.1 97 14 100/54 98 Ventilator 30% 12/18 1109 30 12/18 1034 100.5 12/18 0900 100.8 12/18 0856 100.8 Intake & Output 12/19 1600 12/19 0800 12/19 0000 Intake Total 842 1660 Output Total 670 540 Balance 172 1120 Intake, IV 300 340 Intake, Tube 362 440 Feeding Intake, Tube 180 880 Irrigant Number 1 Bowel Movements Output, Urine 670 540 Physical Exam Other Physical Findings: She is responsive on the ventilator HEENT vesicular lesions on the lip and tongue unchanged Lungs are clear Heart regular rhythm with no murmur Abdomen is distended, nontender with positive bowel sounds Extremities 1-2+ edema all extremities William catheter remains in place Results Last 24 Hours of Lab Results: Laboratory Tests 12/19 0346 Chemistry Sodium (137 - 145 mmol/L) 139 Potassium (3.5 - 5.1 mmol/L) 4.4 Chloride (98 - 107 mmol/L) 107 Carbon Dioxide (22 - 30 mmol/L) 23 Anion Gap (5 - 16) 9 BUN (7 - 17 mg/dL) 18 H Creatinine (0.5 - 1.0 mg/dL) 0.8 Estimated GFR (>60 ml/min) > 60 Glucose (65 - 99 mg/dL) 116 H Calcium (8.4 - 10.2 mg/dL) 7.4 L Phosphorus (2.5 - 4.5 mg/dL) 4.3 Magnesium (1.6 - 2.3 mg/dL) 1.9 Total Bilirubin (0.2 - 1.3 mg/dL) 0.7 AST (14 - 36 U/L) 68 H ALT (9 - 52 U/L) 131 H Albumin (3.5 - 5.0 g/dL) 2.1 L Hematology CBC w Diff MAN DIFF ORDERED WBC (4.8 - 10.8 /CUMM) 13.5 H RBC (4.20 - 5.40 /CUMM) 2.48 L Hgb (12.0 - 16.0 G/DL) 7.2 *L Hct (37 - 47 %) 21.7 L MCV (81.0 - 99.0 FL) 87.4 MCH (27.0 - 31.0 PG) 28.8 MCHC (33.0 - 37.0 G/DL) 33.0 RDW (11.5 - 14.5 %) 15.5 H Plt Count (130 - 400 /CUMM) 225 MPV (7.4 - 10.4 FL) 9.2 Gran % (42.2 - 75.2 %) 85.0 H Lymphocytes % (20.5 - 51.1 %) 11.1 L Monocytes % (1.7 - 9.3 %) 3.5 Eosinophils % (0 - 5 %) 0.3 Basophils % (0.0 - 2.0 %) 0.1 Absolute Granulocytes (1.4 - 6.5 /CUMM) 11.5 H Segmented Neutrophils (42.2 - 75.2 %) 67 Band Neutrophils (0.0 - 5.0 %) 20 H Absolute Lymphocytes (1.2 - 3.4 /CUMM) 1.5 Lymphocytes (20.5 - 51.1 %) 8 L Monocytes (1.7 - 9.3 %) 3 Absolute Monocytes (0.10 - 0.60 /CUMM) 0.5 Eosinophils (0 - 5.0 %) 2 Absolute Eosinophils (0.0 - 0.7 /CUMM) 0 Absolute Basophils (0.0 - 0.2 /CUMM) 0 Platelet Estimate (ADEQUATE) ADEQUATE Hypochromic-Microcytic 1+ Anisocytosis 1+ Macrocytic Cells FEW Stomatocytes 1+ Elliptocytes FEW Last 24 Hours of Jae Results: Blood cultures 2 December 16 negative Recent Imaging Studies: Chest x-ray March 21 revealed increased bibasilar densities Assessment/Plan ID Impression: Low-grade fevers persist, 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 She remains on Ampicillin Day 9 of treatment for a polymicrobial sepsis of urological origin, with Enterococcus, Escherichia coli, Proteus and alpha strep isolated from the blood and urine cultures, now 8 days status post cystoscopy and placement of a left ureteral stent for left hydronephrosis, which has resolved on her recent CT scan. Her chest x-ray suggests an element of fluid overload, status post 2 L of fluid bolus yesterday, and she may benefit from diuresis. Discussion regarding eventual extubation and conservative care noted. Suggestion: 1. Would consider diuresis if her blood pressure allows 2. Further management with regard to her overall level of care per the ICU team 3. Continue Ampicillin and Acyclovir
[2017-12-19 12:00] VITALS: BP 86/54
[2017-12-19 16:00] VITALS: BP 90/52
--- NOTE | 2017-12-19 20:27 | Event Note ---
Event Note Event Note: Siutation Patient is febrile to 101 despite treatment with antibiotics Background 57 year old man with history of cerebral palsy admitted for sepsis of urologic origin and intubated for respiratory failure / airway protection. Patient initially required vasopressors for support but was weaned off. There was concern for line sepsis for which her LIJ TLC was removed. She has been maintained on ampicillin for enterococcus / E.coli UTI / bacteremia. Family wished for no escalation of care including further central venous catheters, vasopressors, or surgical interventions; they are okay with continued antibiotics and fluids. Assessment Patient is now febrile to 101 but otherwise hemodynamically stable. Blood / urine / sputum cultures are to be redrawn and tylenol given. She may require broad spectrum antibiotic should she become unstable. Plan: -Blood culture (only one was able to be obtained despite numerous attempts) -Urine culture -Sputum culture -Acetaminophen for fever -Consider dosing vancomycin if unstable -Monitor vital signs, considered broad spectrum antibiotics
[2017-12-19 23:00] VITALS: BP 94/52
[2017-12-20 05:19] LABS: ABSOLUTE BASOPHIL COUNT 0 /CUMM (0.0-0.2); ABSOLUTE EOSINOPHIL COUNT 0 /CUMM (0.0-0.7); ABSOLUTE LYMPH COUNT 1.9 /CUMM (1.2-3.4); ABSOLUTE MONOCYTE COUNT 0.4 /CUMM (0.10-0.60); BASOPHIL % 0.2 % (0.0-2.0); EOSINOPHIL % 0.2 % (0-5); HEMATOCRIT 20.5 % (37-47); MEAN CORPUSCULAR HGB 29.5 PG (27.0-31.0); MEAN CORPUSCULAR HGB CONC 33.7 G/DL (33.0-37.0); MEAN CORPUSCULAR VOLUME 87.4 FL (81.0-99.0); MEAN PLATELET VOLUME 8.9 FL (7.4-10.4); PLATELET COUNT 278 /CUMM (130-400); RBC DISTRIBUTION WIDTH 15.5 % (11.5-14.5); RED BLOOD CELL CT 2.34 /CUMM (4.20-5.40); WHITE BLOOD CELL COUNT 11.4 /CUMM (4.8-10.8)
--- NOTE | 2017-12-20 06:40 | RADIOLOGY REPORT ---
EXAMINATION: XR PORTABLE CHEST CLINICAL INFORMATION: Intubation COMPARISON: Chest x-ray December 20, 2019 TECHNIQUE: Portable frontal view of the chest was obtained. 5:59 AM FINDINGS: Endotracheal tube about 3 cm above the channing. Nasogastric tube in stomach. There is persistent hazy opacity at the left lung base. This is unchanged since prior chest x-ray December 19, 2017. Right lung is clear. The central hilar vascular prominence noted on prior chest x-ray is improved. No large pleural effusions. IMPRESSION: 1. Endotracheal tube 3 cm above channing. 2. Nasogastric tube in stomach. 3. Decreased pulmonary vascular congestion. 4. Persistent infiltrate/atelectasis at left lung base.
--- NOTE | 2017-12-20 07:33 | PN- Resident CRCU ---
Fely CASTILLO,Fernandez 12/20/17 0733: Subjective HPI/CRCU Issues: Patient is still in the ICU requiring mechanical ventilatory support. Patient followed up in examined by me today. She is less restless today, still intubated with mechanical ventilation, ET tube in place, OG tube in place, William in place, Alps in place. Tmax: 101 F. 24 Hour Events: Tmax: 100 F Objective Vital Signs & I&O Last 8 Hrs of Vitals and I&O: Vital Signs Date Time Temp Pulse Resp B/P B/P Pulse O2 O2 Flow FiO2 Mean Ox Delivery Rate 12/20 1610 30 12/20 1600 96 Ventilator 30% 12/20 1600 99.4 96 14 108/60 96 Ventilator 30% 12/20 1422 30 12/20 1200 95 Ventilator 30% 12/20 1056 30 12/20 0800 95 Ventilator 30% 12/20 0800 99.6 117 17 106/78 95 Ventilator 30% 12/20 0755 30 12/20 0537 30 12/20 0400 98 Ventilator 30% 12/20 0323 30 12/20 0053 30 12/20 0000 95 Ventilator 30% 12/19 2300 99.8 105 16 94/52 95 Ventilator 30% 12/19 2255 99.8 12/19 2159 30 12/19 2156 101.0 12/19 2000 94 Ventilator 30% 12/19 1911 30 Exam General Appearance: well developed/nourished, awake, anxious, intubated Other Physical Findings: HEENT: NCAT, MMM, ET/OG tube CARD: Normal S1/S2 w/o m/g/r PULM: Scattered basilar rhonchi (Mech Vent) ABD: Soft, NT, ND, BS+ : William catheter draining urine NEURO: Spontaneous movement of all extremities, eye opening + EXT: Normal pulses, bilateral upper extremity soft restraints ET tube, OG tube, William in situ. No signs of leakage or inflammation around. Weaning Parameters NIF: 44 Minute Volume: 10.6 Resp rate: 36 Vt: 281 Heart Rate: 111 Weaning Schedule Start Time: 1904 Minute Volume: 8.46 Resp Rate: 28 Vt: 309 Heart Rate: 115 End Time: 2004 Minute Volume: 9.54 Resp Rate: 28 Vt: 315 Heart Rate: 118 Current Medications: Current Medications Sig/Dayday Start time Last Medication Dose Route Stop Time Status Admin Acetaminophen 1,000 MG .STK-MED ONE 12/19 2021 DC IV 12/19 202 Acetaminophen 1,000 MG Q6P PRN 12/16 1815 12/19 N/A 1 UNIT IV 2156 Acyclovir 250 MG Q8H 12/17 1400 AC 12/20 Dextrose/Water 100 ML IV 1432 Ampicillin 2,000 MG Q6H 12/17 1100 AC 12/20 Sodium Chloride 100 ML IV 1640 Artificial Tears 2 GTT TID 12/11 1600 AC 12/20 OPH 1640 Bisacodyl 10 MG DAILY PRN 12/18 1015 AC 12/18 [place] 1030 Bisacodyl 10 MG DAILY PRN 12/16 1730 AC PO Docusate Sodium 100 MG BID PRN 12/16 1730 AC PO Lorazepam 0.5 MG Q4P PRN 12/20 1015 AC 12/20 IV 1640 Lorazepam 1 MG Q4P PRN 12/11 1500 DC 12/20 IV 0805 Morphine Sulfate 4 MG .STK-MED ONE 12/20 0521 DC IM 12/20 0522 Morphine Sulfate 2 MG Q4 HRS NEEDED PRN 12/19 1030 AC 12/20 IV 1130 Neomycin/Polymyxin/ 1 MAGDALENA 0000,0800,1600 12/16 1600 AC 12/20 Bacitracin EXT 1640 Pantoprazole Sodium 40 MG Q24H 12/11 0315 AC 12/20 IV 0326 Petrolatum 1 MAGDALENA DAILY AC PRN 12/13 1130 AC 12/15 TOP 0559 Polyethylene Glycol 17 GM DAILY 12/16 1723 AC 12/20 PO 1033 Impression/Plan Impression/Problem List Impression: 57 year old non-verbal woman with significant past medical history of cerebral palsy seen for evaluation of altered mental status, weakness, and vomiting. CT abdomen/pelvis identified obstructive uropathy with severe hydronephrosis with perinephric stranding concerning for pyelonephritis versus forniceal rupture. Patient continues to improve slowly but has been febrile to 101 yesterday while on Ampicillin. She is off pressor since 12/17/17. Creatinnie continues to improve. Sodium is still 139 today, not treating with aggressive free water flushes, but will continue tube feeding protocol. She remains intubated on minimal vent settings. We tried weaning trial again today, she did not tolerate it fully. Morphine now used for agitation, working well. Ativan dose decreased to 0.5 mg q4h PRN. Platelets improving at 278 today. Tube feeds continuing. Her legal gardens for her healthcare heart her 2 brothers and a sister in law, who had been personally updated by me every day in the understand her current situation, including sepsis, mechanically ventilated, difficult extubation, febrile while still on antibiotic, and they are still planning to extubate the patient tomorrow at noontime with no intention for reintubation. Problem List -Severe Sepsis or Urologic Origin, improving BP but febrile on current abx -Obstructive left sided uropathy with hydronephrosis s/p stent -Metabolic acidosis, resolved -Anemia, H/h 6.9/20.5, no permission to transfuse blood -Elevated lactic acid, resolved -Hypernatremia, resolved -Acute Kidney Injury, improving (Cr 0.9 today) -Acute Hypoxic Respiratory Failure s/p intubation -Hyperbilirubinemia, improving (total bili 0.7 today) -Transaminitis, improving -Thrombocytopenia, improving 278 -History of Cerebral palsy, non-verbal at baseline Plan -ICU Care -Avoid Nephrotoxic agents / NSAIDS -Accuchecks Q4H -Intubated, on Vent: VT 450, FiO2 30%, 16 RR , PEEP 5, pt has spontaneous breaths as well -William Catheter / OGT -Protonix 40 mg IV Daily -Ampicillin 2 g IV Q6H per ID -Acyclovir 250 mg q8h -Ativan 0.5 mg IV Q4H PRN sedation, Inj Morphine 2 mg q4PRN for agitation/ anxiety, working well -Urology following for obstructive uropathy, plans to get proper Urologic procedure after she is stable -ID following for antibiotic recommendations -Follow cultures & sensitivities -UCx: E coli, Proteus, Enterococcus -Type & Cross -Daily CMP, CBC, ABG, CXR -NPO, continuing tube feeds -DVT PPx with ALPS -DNR, patients brother Tom is conservator Problem List: 1. Respiratory failure requiring intubation 2. Sepsis Pain Ratin (cannot assess) Tomorrow's Labs & Rationales: CBC, ICU bundle Plan DVT/Prophylaxis: mechanical, pharmacological (thrombocytopenia) Tremaine MD,Matty 12/20/17 1209: Attending MD Review Statement Attending Sign Off Attending Cosign Statement: I have: examined this patient, reviewed avalbl EMR data, personally reviewd images, discussd w/resident/PA/AIR[place] LOCATION MANAGER, discussed mgmt plan w/angélica, discussed mgmt plan w/CM, discussed mgmt plan w/pt, agreed w/resident/PA/A[employer] LOCATION MANAGER, amended to note. Other Findings: I, Matty Penaloza M.D. have examined this patient, reviewed available EMR data, personally reviewed images, discussed with resident/PA/[employer] LOCATION MANAGER, discussed management plan with housestaff and nursing staff, discussed managment plan all of healthcare providers, discussed management plan with patient and/or family, agreed with resident/PA/A[employer] LOCATION MANAGER. The past history and parts of the chart have been autopopulated. Impression 57-year-old woman with cerebral palsy and nonverbal at baseline * Septic shock secondary to infection of urological origin - E.Coli/Enterococcus Plan Respiratory -cont mechanical ventilation, spontaneous breathing trials ID -ID consultation appreciated -cont abx per ID - ampicillin/acyclovir -f/u all cx -acyclovir ?herpetic lesions CVS -monitor hemodynamics -titrate pressors as tolerated -MAP 65 goal Heme -monitor cbc, coags Metabolic -monitor ins/outs -electrolytes, creatinine Alimentary -tube feeding, free water flushes Neuro -sedate if necessary TTS 35 min No escalation of care, if no improvement by Sunday, family weighing option of terminal extubation.
[2017-12-20 08:00] VITALS: BP 106/78
--- NOTE | 2017-12-20 09:47 | PN- Infect Dx ---
Subjective Subjective: MAXIMUM TEMPERATURE 101 Objective Last 24 Hrs of Vital Signs/I&O Vital Signs Date Time Temp Pulse Resp B/P B/P Pulse O2 O2 Flow FiO2 Mean Ox Delivery Rate 12/20 0800 95 Ventilator 30% 12/20 0800 99.6 117 17 106/78 95 Ventilator 30% 12/20 0755 30 12/20 0537 30 12/20 0400 98 Ventilator 30% 12/20 0323 30 12/20 0053 30 12/20 0000 95 Ventilator 30% 12/19 2300 99.8 105 16 94/52 95 Ventilator 30% 12/19 2255 99.8 12/19 2159 30 12/19 2156 101.0 12/19 2000 94 Ventilator 30% 12/19 1911 30 12/19 1622 30 12/19 1600 97.9 104 14 90/52 96 Ventilator 30% 12/19 1431 30 12/19 1201 30 12/19 1200 96 Ventilator 30% 12/19 1200 98.1 106 15 86/54 96 Ventilator 30% Intake & Output 12/20 1600 12/20 0800 12/20 0000 Intake Total 823 1069 Output Total 660 1020 Balance 163 49 Intake, IV 200 440 Intake, Tube 443 449 Feeding Intake, Tube 180 180 Irrigant Number 0 0 Bowel Movements Output, Urine 660 1020 Physical Exam Other Physical Findings: She is minimally responsive on the ventilator HEENT persistent vesicular lesions on the lips and tongue Lungs are clear Heart regular rhythm with no murmur Abdomen is distended, nontender with positive bowel sounds Extremities 1-2+ edema all extremities William catheter remains in place Results Last 24 Hours of Lab Results: Laboratory Tests 12/20 12/20 0605 0428 Blood Gas pH (7.35 - 7.45 PH) 7.47 H pCO2 (35 - 45 TORR) 32 L pO2 (80 - 100 TORR) 93 HCO3 (21 - 28 MEQ/L) 23 ABG O2 Sat (Measured) (>96.0 %) 97.0 P-50 (Temp Corrected) N Carboxyhemoglobin (1.5 - 5.0 %) 1.2 L O2 Concentration % .30 Respiration Rate (BPM) 14 O2 Delivery Method VENT Vent Mode A/C Expiratory Pressure (CMH2O/P) 5 Tidal Volume (CC) 450 Chemistry Sodium (137 - 145 mmol/L) 139 Potassium (3.5 - 5.1 mmol/L) 4.3 Chloride (98 - 107 mmol/L) 105 Carbon Dioxide (22 - 30 mmol/L) 25 Anion Gap (5 - 16) 9 BUN (7 - 17 mg/dL) 20 H Creatinine (0.5 - 1.0 mg/dL) 0.9 Estimated GFR (>60 ml/min) > 60 Glucose (65 - 99 mg/dL) 111 H Calcium (8.4 - 10.2 mg/dL) 7.3 L Phosphorus (2.5 - 4.5 mg/dL) 4.9 H Magnesium (1.6 - 2.3 mg/dL) 1.8 Total Bilirubin (0.2 - 1.3 mg/dL) 0.7 AST (14 - 36 U/L) 58 H ALT (9 - 52 U/L) 108 H Albumin (3.5 - 5.0 g/dL) 2.1 L Hematology CBC w Diff NO MAN DIFF REQ WBC (4.8 - 10.8 /CUMM) 11.4 H RBC (4.20 - 5.40 /CUMM) 2.34 L Hgb (12.0 - 16.0 G/DL) 6.9 *L Hct (37 - 47 %) 20.5 L MCV (81.0 - 99.0 FL) 87.4 MCH (27.0 - 31.0 PG) 29.5 MCHC (33.0 - 37.0 G/DL) 33.7 RDW (11.5 - 14.5 %) 15.5 H Plt Count (130 - 400 /CUMM) 278 MPV (7.4 - 10.4 FL) 8.9 Gran % (42.2 - 75.2 %) 79.0 H Lymphocytes % (20.5 - 51.1 %) 16.8 L Monocytes % (1.7 - 9.3 %) 3.8 Eosinophils % (0 - 5 %) 0.2 Basophils % (0.0 - 2.0 %) 0.2 Absolute Granulocytes (1.4 - 6.5 /CUMM) 9.0 H Absolute Lymphocytes (1.2 - 3.4 /CUMM) 1.9 Absolute Monocytes (0.10 - 0.60 /CUMM) 0.4 Absolute Eosinophils (0.0 - 0.7 /CUMM) 0 Absolute Basophils (0.0 - 0.2 /CUMM) 0 Miscellaneous Phlebotomy Draw Site RIGHT RADIAL Last 24 Hours of Jae Results: Blood cultures 2 December 19 negative Urine culture December 19 negative Sputum culture December 19 pending, with gram stain revealing few white blood cells Recent Imaging Studies: Chest x-ray December 20 decreased pulmonary vascular congestion Assessment/Plan ID Impression: Fevers persist, 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 She remains on Ampicillin Day 10 of treatment for a polymicrobial sepsis of urological origin, with Enterococcus, Escherichia coli, Proteus and alpha strep isolated from the blood and urine cultures, now 9 days status post cystoscopy and placement of a left ureteral stent for left hydronephrosis, which has resolved on her recent CT scan. Her chest x-ray reveals decreased vascular congestion, status post a dose of Lasix yesterday, though she remains quite fluid overloaded, with her weight 20 pounds over her admission weight. She remains markedly anemic with etiology unclear. Suggestion: 1. Continue diuresis as tolerated 2. Follow-up recent cultures 3. Further management with regard to her overall level of care per the ICU team 4. Continue Ampicillin and Acyclovir
[2017-12-20 16:00] VITALS: BP 108/60
[2017-12-21] VITALS: BP 110/60
[2017-12-21 04:43] LABS: ABSOLUTE EOSINOPHIL COUNT 0 /CUMM (0.0-0.7); ABSOLUTE MONOCYTE COUNT 0.4 /CUMM (0.10-0.60)
[2017-12-21 05:46] LABS: ABSOLUTE BASOPHIL COUNT 0.1 /CUMM (0.0-0.2); ABSOLUTE GRANULOCYTE CT 7.8 /CUMM (1.4-6.5); BASOPHIL % 0.6 % (0.0-2.0); EOSINOPHIL % 0.2 % (0-5); GRANULOCYTE % 76.4 % (42.2-75.2); MEAN CORPUSCULAR HGB 29.2 PG (27.0-31.0); MEAN CORPUSCULAR HGB CONC 33.2 G/DL (33.0-37.0); MEAN CORPUSCULAR VOLUME 87.8 FL (81.0-99.0); MEAN PLATELET VOLUME 8.8 FL (7.4-10.4); PLATELET COUNT 332 /CUMM (130-400); RBC DISTRIBUTION WIDTH 15.4 % (11.5-14.5); RED BLOOD CELL CT 2.26 /CUMM (4.20-5.40); WHITE BLOOD CELL COUNT 10.2 /CUMM (4.8-10.8)
[2017-12-21 06:41] LABS: HEMATOCRIT 19.8 % (37-47)
--- NOTE | 2017-12-21 07:28 | PN- Resident CRCU ---
Fely CASTILLO,Fernandez 12/21/17 0728: Subjective HPI/CRCU Issues: Patient is still in the ICU requiring mechanical ventilatory support. I followed up and examined the patient today. She is opening her eyes spontaneously, still intubated, and no other issues reported. From the chart I see that she had 1012 fever at 5:15 this morning. 24 Hour Events: tmax 101.5 F fever extubation today (see event note) Objective Vital Signs & I&O Last 8 Hrs of Vitals and I&O: Vital Signs Date Time Temp Pulse Resp B/P B/P Pulse O2 O2 Flow FiO2 Mean Ox Delivery Rate 12/21 1200 99 Ventilator 30% 12/21 0843 30 12/21 0800 94 Ventilator 30% 12/21 0800 98.0 104 14 100/58 94 Ventilator 30% 12/21 0621 99.6 12/21 0540 30 12/21 0515 101.2 12/21 0400 97 Ventilator 30% 12/21 0359 30 12/21 0050 30 12/21 0000 98 Ventilator 30% 12/21 0000 98.9 102 14 110/60 98 Ventilator 30% 12/20 2227 30 12/20 2121 100.5 12/20 2015 101.0 12/20 2000 95 Ventilator 40% 12/20 1905 30 12/20 1610 30 12/20 1600 96 Ventilator 30% 12/20 1600 99.4 96 14 108/60 96 Ventilator 30% 12/20 1422 30 Exam General Appearance: well developed/nourished, alert, anxious, intubated Other Physical Findings: HEENT: NCAT, MMM, ET/OG tube CARD: Normal S1/S2 w/o m/g/r PULM: Scattered basilar rhonchi (Mech Vent) ABD: Soft, NT, ND, BS+ : William catheter draining urine NEURO: Spontaneous movement of all extremities, eye opening + EXT: Normal pulses, bilateral upper extremity soft restraints ET tube, OG tube, William in situ. No signs of leakage or inflammation around. SKIN: small healing scabs over lips, also healing scabs over her feet (likely from initial trauma related to scratches while restless) Weaning Parameters NIF: 37 Minute Volume: 8.80 Resp rate: 44 Vt: 200 Heart Rate: 118 Weaning Schedule Start Time: 191 Minute Volume: 10.9 Resp Rate: 32 Vt: 340 Heart Rate: 123 End Time: 2019 Minute Volume: 7.97 Resp Rate: 29 Vt: 275 Heart Rate: 114 Current Medications: Current Medications Sig/Dayday Start time Last Medication Dose Route Stop Time Status Admin Acetaminophen 1,000 MG .STK-MED ONE 12/21 0415 DC IV 12/21 0416 Acetaminophen 1,000 MG .STK-MED ONE 12/20 2013 DC IV 12/20 2014 Acetaminophen 1,000 MG Q6P PRN 12/16 1815 DC 12/21 N/A 1 UNIT IV 0515 Acyclovir 250 MG Q8H 12/17 1400 DC 12/21 Dextrose/Water 100 ML IV 0527 Ampicillin 2,000 MG Q6H 12/17 1100 DC 12/21 Sodium Chloride 100 ML IV 0938 Artificial Tears 2 GTT TID 12/11 1600 12/21 OPH 0938 Bisacodyl 10 MG DAILY PRN 12/18 1015 12/18 CO 1030 Bisacodyl 10 MG DAILY PRN 12/16 1730 DC PO Docusate Sodium 100 MG BID PRN 12/16 1730 DC PO Glycopyrrolate 400 MCG Q4P PRN 12/21 1330 AC IV Lorazepam 2 MG ONCE ONE 12/21 1330 DC 12/21 IV 12/21 1331 1337 Lorazepam 0.5 MG Q4P PRN 12/20 1015 AC 12/21 IV 1147 Morphine Sulfate 2 MG Q4P PRN 12/21 1330 AC IV Morphine Sulfate 2 MG ONCE ONE 12/21 1230 DC 12/21 IV 12/21 1231 1337 Morphine Sulfate 2 MG Q4 HRS NEEDED PRN 12/19 1030 DC 12/21 IV 0938 Neomycin/Polymyxin/ 1 MAGDALENA 0000,0800,1600 12/16 1600 12/21 Bacitracin EXT 0732 Pantoprazole Sodium 40 MG Q24H 12/11 0315 [place] 12/21 IV 0309 Petrolatum 1 MAGDALENA DAILY AC PRN 12/13 1130 AC 12/15 TOP 0559 Polyethylene Glycol 17 GM DAILY 12/16 1723 [place] 12/21 PO 0938 Impression/Plan Impression/Problem List Impression: 57 year old non-verbal woman with significant past medical history of cerebral palsy seen for evaluation of altered mental status, weakness, and vomiting. CT abdomen/pelvis identified obstructive uropathy with severe hydronephrosis with perinephric stranding concerning for pyelonephritis versus forniceal rupture. Patient has been febrile to 101.5 F this AM while still on Ampicillin. She is off pressor since 12/17/17. She remains intubated on minimal vent settings. Doing poorly on weaning. Tube feeds continuing. Her legal gardens for her healthcare are her 2 brothers and a sister in law, who had been personally updated by me every day about her current situation, including sepsis, mechanically ventilated , difficult extubation, febrile while still on antibiotic, and directed me to extubate the patient today, given her course of illness and make her as comfortable as possible, and no more investigations, or treatments except that make her comfortable. The power of attorneys all are in agreement to direct her further goals of care as comfort measures only as written in the event note by me today, and the orders/medications have been updated accordingly. Plan to have a hospice consultation shown, block and case maker Jadyn notified. Problem List: 1. Comfort measures only status Pain Ratin Tomorrow's Labs & Rationales: - Plan DVT/Prophylaxis: mechanical, pharmacological (thrombocytopenia) Matty Penaloza MD 12/21/17 1108: Attending MD Review Statement Attending Sign Off Attending Cosign Statement: I have: examined this patient, reviewed avalbl EMR data, personally reviewd images, discussd w/resident/PA/FIELD TECHNICAL ASSISTANT, discussed mgmt plan w/angélica, discussed mgmt plan w/CM, discussed mgmt plan w/pt, agreed w/resident/PA/FIELD TECHNICAL ASSISTANT, amended to note. Other Findings: Matty Boateng M.D. have examined this patient, reviewed available EMR data, personally reviewed images, discussed with resident/PA/FIELD TECHNICAL ASSISTANT, discussed management plan with housestaff and nursing staff, discussed managment plan all of healthcare providers, discussed management plan with patient and/or family, agreed with resident/PA/FIELD TECHNICAL ASSISTANT. The past history and parts of the chart have been autopopulated. Impression 57-year-old woman with cerebral palsy and nonverbal at baseline * Septic shock secondary to infection of urological origin - E.Coli/Enterococcus Plan Respiratory -cont mechanical ventilation, spontaneous breathing trials ID -ID consultation appreciated -cont abx per ID, depending on goals of care will either change to Meropenem vs stopping abx -f/u all cx -acyclovir ?herpetic lesions CVS -monitor hemodynamics -titrate pressors as tolerated -MAP 65 goal Heme -monitor cbc, coags Metabolic -monitor ins/outs -electrolytes, creatinine Alimentary -tube feeding, free water flushes Neuro -sedate if necessary TTS 35 min Family meeting today to discuss goals of care Respiratory -cont mechanical ventilation, spontaneous breathing trials ID -ID consultation appreciated -cont abx per ID, depending on goals of care will either change to Meropenem vs stopping abx -f/u all cx -acyclovir ?herpetic lesions CVS -monitor hemodynamics -titrate pressors as tolerated -MAP 65 goal Heme -monitor cbc, coags Metabolic -monitor ins/outs -electrolytes, creatinine Alimentary -tube feeding, free water flushes Neuro -sedate if necessary TTS 35 min Family meeting today to discuss goals of care
[2017-12-21 08:00] VITALS: BP 100/58
--- NOTE | 2017-12-21 10:47 | PN- Infect Dx ---
Subjective Subjective: MAXIMUM TEMPERATURE 101.2. Objective Last 24 Hrs of Vital Signs/I&O Vital Signs Date Time Temp Pulse Resp B/P B/P Pulse O2 O2 Flow FiO2 Mean Ox Delivery Rate 12/21 0843 30 12/21 0800 94 Ventilator 30% 12/21 0800 98.0 104 14 100/58 94 Ventilator 30% 12/21 0621 99.6 12/21 0540 30 12/21 0515 101.2 12/21 0400 97 Ventilator 30% 12/21 0359 30 12/21 0050 30 12/21 0000 98 Ventilator 30% 12/21 0000 98.9 102 14 110/60 98 Ventilator 30% 12/20 2227 30 12/20 2121 100.5 12/20 2015 101.0 12/20 2000 95 Ventilator 40% 12/20 1905 30 12/20 1610 30 12/20 1600 96 Ventilator 30% 12/20 1600 99.4 96 14 108/60 96 Ventilator 30% 12/20 1422 30 12/20 1200 95 Ventilator 30% 12/20 1056 30 Intake & Output 12/21 1600 12/21 0800 12/21 0000 Intake Total 1019 985 Output Total 650 700 Balance 369 285 Intake, IV 480 380 Intake, Oral 0 0 Intake, Tube 359 425 Feeding Intake, Tube 180 180 Irrigant Number 0 0 Bowel Movements Output, Urine 650 700 Patient 146 lb Weight Weight Bed scale Measurement Method Physical Exam Other Physical Findings: She is more awake and alert on the ventilator HEENT slight improvement in the vesicular lesions on her lips and tongue Lungs are clear Heart regular rhythm with no murmur Abdomen is distended, nontender with positive bowel sounds Extremities 1-2+ edema all extremities William catheter remains in place Results Last 24 Hours of Lab Results: Laboratory Tests 12/21 0345 Chemistry Sodium (137 - 145 mmol/L) 140 Potassium (3.5 - 5.1 mmol/L) 4.3 Chloride (98 - 107 mmol/L) 106 Carbon Dioxide (22 - 30 mmol/L) 25 Anion Gap (5 - 16) 9 BUN (7 - 17 mg/dL) 19 H Creatinine (0.5 - 1.0 mg/dL) 0.9 Estimated GFR (>60 ml/min) > 60 Glucose (65 - 99 mg/dL) 109 H Calcium (8.4 - 10.2 mg/dL) 7.4 L Phosphorus (2.5 - 4.5 mg/dL) 4.5 Magnesium (1.6 - 2.3 mg/dL) 1.9 Total Bilirubin (0.2 - 1.3 mg/dL) 0.7 AST (14 - 36 U/L) 48 H ALT (9 - 52 U/L) 89 H Albumin (3.5 - 5.0 g/dL) 2.1 L Hematology CBC w Diff NO MAN DIFF REQ WBC (4.8 - 10.8 /CUMM) 10.2 RBC (4.20 - 5.40 /CUMM) 2.26 L Hgb (12.0 - 16.0 G/DL) 6.6 *L Hct (37 - 47 %) 19.8 *L MCV (81.0 - 99.0 FL) 87.8 MCH (27.0 - 31.0 PG) 29.2 MCHC (33.0 - 37.0 G/DL) 33.2 RDW (11.5 - 14.5 %) 15.4 H Plt Count (130 - 400 /CUMM) 332 MPV (7.4 - 10.4 FL) 8.8 Gran % (42.2 - 75.2 %) 76.4 H Lymphocytes % (20.5 - 51.1 %) 19.2 L Monocytes % (1.7 - 9.3 %) 3.6 Eosinophils % (0 - 5 %) 0.2 Basophils % (0.0 - 2.0 %) 0.6 Absolute Granulocytes (1.4 - 6.5 /CUMM) 7.8 H Absolute Lymphocytes (1.2 - 3.4 /CUMM) 2.0 Absolute Monocytes (0.10 - 0.60 /CUMM) 0.4 Absolute Eosinophils (0.0 - 0.7 /CUMM) 0 Absolute Basophils (0.0 - 0.2 /CUMM) 0.1 Last 24 Hours of Jae Results: Blood cultures December 19 one bottle positive for gram-negative rods Urine culture December 19 negative Sputum culture December 19 no growth Assessment/Plan ID Impression: Fevers persist with white blood cell count now normal on Ampicillin Day 11 of treatment for polymicrobial sepsis of urological origin, now 10 days status post cystoscopy and placement of a left ureteral stent for left hydronephrosis, and Acyclovir Day 4 of treatment for 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 One blood culture from December 19 was reported positive yesterday for gram-negative rods, either suggesting a new healthcare associated infection, for example secondary to the recent central line or William catheter, or related to her initial infection, for example an infected stent or recurrent obstruction, though her left hydronephrosis was resolved on her most recent CT scan.. Apparently a decision is to be made later today regarding extubation and comfort care and further evaluation and antibiotic treatment will depend on this. Suggestion: 1. Await family meeting later today 2. Continue Ampicillin and Acyclovir pending above but if plan to continue aggressive management will need further evaluation, including a repeat CT of the abdomen and pelvis and Urology follow-up, and a change from Ampicillin to Meropenem 1 g IV every 8 hours pending final blood cultures
--- NOTE | 2017-12-21 12:29 | Event Note ---
Event Note Event Note: I spoke with the patient's power of securities attorney Navid just before extubation, at which point he said "lets watch how she does after extubation" and would plan either comfort measures or any other treatment after extubation. Extubation was carried out by the respiratory therapist, following which, the patient seemed more dyspneic, and Navid decided to go for comfort measures as the best course of treatment for the patient. This discussion was further updated to Roger including about extubation, to which she said she represented her Rich as well, and agreed to Navid's decision to make patient comfort measures only, which would mean no more treatments regarding infections or other medical conditions, no more aggressive resuscitative measures, and no more investigations either. This was relayed to my attending Dr. Penaloza and CODE STATUS and medications were changed accordingly.
[2017-12-21 16:14] VITALS: BP 120/60
== END 2017-12-21 19:24 | disposition hospice, home (50) | DRG 870 ==
LOC: ERH 16:33 → 2NA 20:25 → CRI 20:25 → ERHI 20:25 → ENRESERV 21:11 → ENTRNSPT 22:19 → EDTRNSPTSTS 22:22 → EDTRNSPT 22:22 → CRI 22:35 → CMPTRNSPT 22:40 → DELTRNSPT 22:45 → CRI 12-12 07:35 → ENTRNSPT 12-21 15:21 → EDTRNSPTSTS 12-21 15:52 → EDTRNSPT 12-21 15:52 → 2NA 12-21 16:04 → CMPTRNSPT 12-21 16:07 → 2NA 12-21 19:24
PROVIDERS: Emergency Medicine; Internal Medicine; Internal Medicine Interventional Cardiology; Student in an Organized Health Care Education/Training Program
PROC: 0BH17EZ Insertion of Endotracheal Airway into Trachea, Via Natural or Artificial Opening (ICD-10-PCS; principal; 2017-12-11)
PROC: 5A1955Z Respiratory Ventilation, Greater than 96 Consecutive Hours (ICD-10-PCS; 2017-12-11)
PROC: 0T778DZ Dilation of Left Ureter with Intraluminal Device, Via Natural or Artificial Opening Endoscopic (ICD-10-PCS; 2017-12-11)
PROC: 02HV33Z Insertion of Infusion Device into Superior Vena Cava, Percutaneous Approach (ICD-10-PCS; 2017-12-11)
DX: A41.51 Sepsis due to Escherichia coli [E. coli] (principal); R65.21 Severe sepsis with septic shock; J96.91 Respiratory failure, unspecified with hypoxia; J96.02 Acute respiratory failure with hypercapnia; N17.9 Acute kidney failure, unspecified; E87.2 Acidosis; D69.6 Thrombocytopenia, unspecified; E87.0 Hyperosmolality and hypernatremia; N13.2 Hydronephrosis with renal and ureteral calculous obstruction; N13.6 Pyonephrosis; Z51.5 Encounter for palliative care; G80.9 Cerebral palsy, unspecified; R00.0 Tachycardia, unspecified; R74.0 Nonspecific elevation of levels of transaminase and lactic acid dehydrogenase [LDH]; Z66 Do not resuscitate; D64.9 Anemia, unspecified; E86.0 Dehydration
CPT/HCPCS: CCU; 36415; 71045; 74018; 74176; 81001; 82436; 87040; 87070; 87071; 87086; 87147; 87449; 87450; 93005; 93010; 93306; 94799; 96374; 96375; 96376; 99291; C2617; J0131; J0290; J0696; J1644; J1940; J2060; J2270; J3370; J7040; J7042; J7060; J7120

== ENCOUNTER 2017-12-21 19:25 | Inpatient (IN) | payer OTHER ==
--- NOTE | 2017-12-21 20:00 | History & Physical ---
General Information and HPI Chief Complaint: Worsening clinical status. Source of Information: old records Exam Limitations: unable to give history, clinical condition Associated Symptoms: -- History of Present Illness: 57 yo F with cerebral palsy was admitted to the ICU on December 11 for septic shock secondary to pyelonphritis with obstructive uropathy (left sided hydronephrosis) , gram negative bacteremia, EDIL and respiratory failure requiring intubation. She underwent cystoscopy with insertion of left ureteral stent for relief of obstruction. She was started on appropriate therapy for polymicrobial sepsis and HSV stomatitis as per ID recs. She did poorly on weaning trials and was not improving clinically. Discussion was held with patient's brother (legal guardians), and decision was made to terminally extubate her and keep her comfortable. Hospice evaluated patient and deemed a candidate for inpatient hospice. Patient currently appears comfortable on morphine drip. Family not available at bedside. Allergies/Medications Allergies: Coded Allergies: No Known Allergies (12/10/17) Past History Medical History Neurological: CEREBRAL PALSY EENT: NONE Cardiovascular: NONE Respiratory: NONE Gastrointestinal: NONE Hepatic: NONE Renal: NONE Musculoskeletal: NONE Psychiatric: NONE Endocrine: NONE Blood Disorders: NONE Cancer(s): NONE CLIENT SERVICE CONSULTANT/Reproductive: NONE History of MRSA: No History of VRE: No History of CDIFF: No Isolation History: Standard Surgical History Surgical History: non-contributory Past Family/Social History Family History: Non contributory Psychosocial History: Psychosocial History Where do you live? Home Who Do You Live With? brother FER Smoking Status: Never Smoked ETOH Use: denies use Functional Ability: ADLs Needs Assist: feeding, dressing, eating, toileting, bathing. Ambulation: independent Review of Systems Review of Systems: Unable to obtain review of systems. Review of Systems Constitutional: Reports: no symptoms (unobtainable patient nonverbal). Exam & Diagnostic Data Last 24 Hrs of Vital Signs/I&O Vital Signs Date Time Temp Pulse Resp B/P B/P Pulse O2 O2 Flow FiO2 Mean Ox Delivery Rate 12/21 2001 Nasal 3.0L Cannula Physical Exam General Appearance Alert, Mild Distress, Awake, but nonverbal. Skin Small healing scabs over lips, vesicular lesions on lips and tongue HEENT Mucous Membr. moist/pink Cardiovascular Regular Rate, Normal S1, Normal S2, No Murmurs Lungs Bilateral scattered rhonchi Abdomen Normal Bowel Sounds, Soft Neurological Unable to assess Extremities 1+ edema, bilateral contractures. Last 24 Hrs of Labs/Jae: Labs reviewed. Assessment/Plan Assessment: 57 yo F with cerebral palsy was admitted to the ICU on December 11 for septic shock secondary to pyelonphritis with obstructive uropathy (left sided hydronephrosis) , gram negative bacteremia, EDIL and respiratory failure requiring intubation. She underwent cystoscopy with insertion of left ureteral stent for relief of obstruction. No improvement in clinical status. Discussion held with family, patient was terminally extubated and changed to comfort measures. Plan: - Admit to Hospice Care - NPO or comfort feeding - IV morphine drip titrate based on respiratory status and pain - IV ativan as needed for agitation - Scopolamine patch or Robinul as needed for secretions - William catheter in place - Tylenol supp as needed for fever - Dulcolax suppository as needed - Family were not available at bedside during my evaluation. - Will continue to monitor.
[2017-12-22 06:20] VITALS: BP 100/64
--- NOTE | 2017-12-22 12:48 | PN- Att Addend ---
Attending Addendum Attending Brief Note pt seen and examined obtunded, morphine drip family at bedside comfort/hospice care no new changes no blood work goals of care to comfort all of families concerns addressed
[2017-12-23 06:20] VITALS: BP 102/54
--- NOTE | 2017-12-23 09:33 | PN- Att Addend ---
Attending Addendum Attending Brief Note pt seen and examined continues to febrile, obtunded, morphine drip received tylenol for comfort comfort/hospice care no new changes no blood work goals of care to comfort previously all of families concerns addressed
[2017-12-24 06:20] VITALS: BP 96/50
--- NOTE | 2017-12-24 11:38 | PN- Hospice ---
Subjective Subjective: Pt. is sedated, morphine drip at 16 mg per hour now and receiving ativan 2 mg IV every 4 hrs. Tmax 104.7. Receiving APAP suppository generally every 4 hrs. Review of Systems Constitutional: Reports: see HPI. Objective Last 24 Hrs of Vital Signs/I&O Vital Signs Date Time Temp Pulse Resp B/P B/P Pulse O2 O2 Flow FiO2 Mean Ox Delivery Rate 12/24 0954 102.5 12/24 0951 102.5 12/24 0636 103.0 12/24 0620 103.0 119 20 96/50 80 Nasal Cannula 12/24 0539 104.1 12/24 0300 103.2 12/24 0131 104.7 12/24 0000 Nasal 3.0L Cannula Intake & Output 12/24 1600 12/24 0800 12/24 0000 Intake Total 128 128 Output Total 400 Balance 128 -272 Intake, IV 128 128 Output, Urine 400 Physical Exam General Appearance: comfortable, sedated Head: swelling Ears, Nose, Throat: ulcerations/vesicles (on lips and tongue) Respiratory: no respiratory distress, tracheal congestion noted Cardiovascular: tachycardia Abdomen: soft, non-tender Extremities: edema, 1+ bilat. LEs Current Medications: Current Medications Sig/Dayday Start time Last Medication Dose Route Stop Time Status Admin Acetaminophen 650 MG Q4P PRN 12/22 1999 AC 12/24 MT 0954 Artificial Tears 2 GTT 4 TIMES/DAY PRN 12/21 2014 AC OPH Bisacodyl 10 MG DAILY PRN 12/22 1999 AC MT Glycerin/Mineral Oil 1 MAGDALENA TID PRN 12/22 1999 TOP Glycopyrrolate 400 MCG Q4P PRN 12/23 1115 AC 12/24 IV 0842 Lorazepam 2 MG Q4 HRS NEEDED PRN 12/22 1999 AC 12/24 IV 0836 Morphine Sulfate 100 MG Q6H 12/23 1400 AC 12/24 Dextrose/Water 100 ML IV 1119 Morphine Sulfate See Dose [id number] PRN 12/21 2345 AC 12/23 Insts (1) IV 1537 Morphine Sulfate 100 MG Q24H 12/21 2000 DC 12/23 Dextrose/Water 100 ML IV 12/23 1359 1256 Scopolamine HBr 1 PAT Q72H 12/22 1999 12/21 TOP 2039 Dose Instructions: (1)Morphine Sulfate: HOSPICE PROTOCOL FOR USE ON 2NA AND ICU ONLY Give initial bolus of ____mg (typical 3-5mg) IV or Sub-Q. Start infusion @: __4____ mg/hr (typical 1-2mg/hr) TITRATION PROTOCOL: Pain scsore 1-4 (grimace/moan) give 50% basal rate (max 10mg) as bolus IV or Sub-Q every 20 minutes PRN x3 doses; Pain 5-10 (yelling or visibly distressed) or labored respirations or respiration rate greater than 20/minute give 100% basal rate (max 10mg) as bolus IV or Sub-Q every 20 minutes PRN x3 doses. If above symptoms not improved, increase basal rate by 100% (not more than 10mg increments), and repeat protocol, inform MD. Assessment/Plan Hospice Assessment/Recommendations: 57-year-old female with cerebral palsy admitted with septic shock (gram negative bacteremia) due to pyelonephritis with obstructive uropathy (left sided hydronephrosis), EDIL and respiratory failure requiring intubation without clinical improvement, s/p terminal extubation and placed on hospice care. Pt.does not appear to be in distress, continue morphine drip with titration protocol and ativan. Fever-schedule APAP suppository q4 hrs and can alternate ASA suppository every 2hrs if APAP ineffective at bringing fever down below 101. Congestion-schedule Robinul 400mcg every 4 hrs, continue scopolamine patch Discussed with nursing. Problem List: 1. Hospice care 2. Gram-negative bacteremia 3. Respiratory failure requiring intubation
[2017-12-25 07:01] VITALS: BP 102/54
--- NOTE | 2017-12-25 16:40 | PN- Hospice ---
Subjective Subjective: Pt. sedated, appears comfortable on morphine drip at 16mg/hr and received ativan x 2. Remains on scheduled APAP with improvement of temperature, also on scheduled Robinul and scopolamine for secretions. Review of Systems Constitutional: Reports: see HPI. Objective Last 24 Hrs of Vital Signs/I&O Vital Signs Date Time Temp Pulse Resp B/P B/P Pulse O2 O2 Flow FiO2 Mean Ox Delivery Rate 12/25 1638 98.1 12/25 1610 100.4 12/25 1430 99.7 12/25 1221 102.0 12/25 0800 Nasal 3.0L Cannula 12/25 0701 102.0 114 20 102/54 72 12/25 0542 102.0 12/25 0135 100.7 12/25 0000 Nasal 3.0L Cannula 12/24 2156 101.7 12/24 1753 101.2 Intake & Output 12/25 1600 12/25 0800 12/25 0000 Intake Total 200 128 Output Total 200 375 600 Balance 0 -247 -600 Intake, IV 200 128 Intake, Oral 0 Output, Urine 200 375 600 Physical Exam General Appearance: no apparent distress, sedated Ears, Nose, Throat: ulcerations/vesicles (on lips/tongue) Respiratory: no respiratory distress, tracheal secretions Cardiovascular: tachycardia Extremities: areas of mottling bilat. toes Assessment/Plan Hospice Assessment/Recommendations: 57-year-old female with cerebral palsy admitted with septic shock (gram negative bacteremia) due to pyelonephritis with obstructive uropathy (left sided hydronephrosis), EDIL and respiratory failure requiring intubation without clinical improvement, s/p terminal extubation and placed on hospice care. Currently comfortable and afebrile. Continue current medication regimen. Problem List: 1. Gram-negative bacteremia 2. Hospice care 3. Sepsis
[2017-12-26 06:39] VITALS: BP 100/52
--- NOTE | 2017-12-26 13:47 | PN- Hospice ---
Subjective Subjective: Pt. unresponsive, continues on morphine drip at 16mg/hr, no bolus necessary. Received ativan x 1. Afebrile overnight with low grade fever this am. Minimal urine output. Review of Systems Constitutional: Reports: see HPI. Objective Last 24 Hrs of Vital Signs/I&O Vital Signs Date Time Temp Pulse Resp B/P B/P Pulse O2 O2 Flow FiO2 Mean Ox Delivery Rate 12/26 1044 99.1 12/26 0800 Nasal 4.0L Cannula 12/26 0705 97.8 12/26 0639 98.3 98 20 100/52 66 12/26 0604 98.3 12/26 0330 97.6 12/26 0218 97.7 12/26 0000 Nasal 3.0L Cannula 12/25 2340 97.0 12/25 2200 97.8 12/25 2200 97.8 12/25 2100 20 12/25 1835 97.0 12/25 1800 97.0 12/25 1650 80 12/25 1638 98.1 12/25 1610 100.4 12/25 1600 Nasal 3.0L Cannula 12/25 1430 99.7 Intake & Output 12/26 1600 12/26 0800 12/26 0000 Intake Total 128 112 Output Total 275 100 Balance -147 12 Intake, IV 128 112 Intake, Oral 0 0 Output, Urine 275 100 Physical Exam General Appearance: no apparent distress Ears, Nose, Throat: ulcerations/vesicles (to lips/tongue) Respiratory: no respiratory distress, rhonchi Cardiovascular: regular rate/rhythm Abdomen: soft Extremities: no mottling Current Medications: Current Medications Sig/Dayday Start time Last Medication Dose Route Stop Time Status Admin Acetaminophen 650 MG Q4 12/24 1400 AC 12/26 MT 1044 Artificial Tears 2 GTT 4 TIMES/DAY PRN 12/21 2014 AC OPH Aspirin 300 MG Q4 HRS NEEDED PRN 12/24 1145 AC 12/25 MT 0809 Bisacodyl 10 MG DAILY PRN 12/22 1999 AC MT Glycerin/Mineral Oil 1 MAGDALENA TID PRN 12/22 1999 AC 12/25 TOP 2117 Glycopyrrolate 400 MCG Q4H 12/24 1700 AC 12/26 IV 1335 Lorazepam 2 MG Q4 HRS NEEDED PRN 12/22 1999 AC 12/26 IV 0608 Morphine Sulfate 100 MG Q6H 03/25 1400 12/26 Dextrose/Water 100 ML IV 0935 Morphine Sulfate See Dose [id number] PRN 12/21 2345 12/23 Insts (1) IV 1537 Scopolamine HBr 1 PAT Q72H 12/22 1999 12/24 TOP 2103 Dose Instructions: (1)Morphine Sulfate: HOSPICE PROTOCOL FOR USE ON 2NA AND ICU ONLY Give initial bolus of ____mg (typical 3-5mg) IV or Sub-Q. Start infusion @: __4____ mg/hr (typical 1-2mg/hr) TITRATION PROTOCOL: Pain scsore 1-4 (grimace/moan) give 50% basal rate (max 10mg) as bolus IV or Sub-Q every 20 minutes PRN x3 doses; Pain 5-10 (yelling or visibly distressed) or labored respirations or respiration rate greater than 20/minute give 100% basal rate (max 10mg) as bolus IV or Sub-Q every 20 minutes PRN x3 doses. If above symptoms not improved, increase basal rate by 100% (not more than 10mg increments), and repeat protocol, inform MD. Assessment/Plan Hospice Assessment/Recommendations: 57-year-old female with cerebral palsy admitted with septic shock (gram negative bacteremia) due to pyelonephritis with obstructive uropathy (left sided hydronephrosis), EDIL and respiratory failure requiring intubation without clinical improvement, s/p terminal extubation and placed on hospice care. Appears comfortable. Tracheal secretions/rhonchi--increase scopolamine to 2 patches and continue Robinul q4hrs. Problem List: 1. Gram-negative bacteremia 2. Hospice care 3. Fever
[2017-12-27 06:20] VITALS: BP 94/50
--- NOTE | 2017-12-27 14:41 | PN- Hospice ---
Subjective Subjective: Pt. with somewhat labored respirations. Receiving Morphine 16 mg/hr. Received ativan x3. Unresponsive, still making urine. Febrile, on scheduled Tylenol suppositories. Review of Systems Constitutional: Reports: see HPI. Objective Last 24 Hrs of Vital Signs/I&O Vital Signs Date Time Temp Pulse Resp B/P B/P Pulse O2 O2 Flow FiO2 Mean Ox Delivery Rate 12/27 1422 101.9 12/27 1348 101.2 12/27 1229 99.6 12/27 1151 100.4 12/27 0800 Nasal 4.0L Cannula 12/27 0620 100.2 110 16 94/50 70 Nasal Cannula 12/27 0534 100.2 12/27 0131 101.2 12/27 0000 Nasal 4.0L Cannula 12/26 2138 100.4 12/26 1944 99.0 12/26 1829 100.4 Intake & Output 12/27 1600 12/27 0800 12/27 0000 Intake Total 128 48 Output Total 500 350 300 Balance -500 -222 -252 Intake, IV 128 48 Intake, Oral 0 Number 0 0 Bowel Movements Output, Urine 500 350 300 Physical Exam General Appearance: mild distress (with labored respirations) Head: atraumatic Ears, Nose, Throat: ulcerations/vesicles (with serosanguinous drng) Respiratory: labored respirations, RR 20, tracheal secretions Cardiovascular: tachycardia Extremities: nailbeds left foot cyanotic Current Medications: Current Medications Sig/Dayday Start time Last Medication Dose Route Stop Time Status Admin Acetaminophen 650 MG Q4 12/24 1400 AC 12/27 MA 1348 Artificial Tears 2 GTT 4 TIMES/DAY PRN 12/21 2014 AC OPH Aspirin 300 MG Q4 HRS NEEDED PRN 12/24 1145 AC 12/27 MA 0904 Bisacodyl 10 MG DAILY PRN 12/22 1999 AC MA Glycerin/Mineral Oil 1 MAGDALENA TID PRN 12/22 1999 AC 12/25 TOP 2117 Glycopyrrolate 400 MCG Q4H 12/24 1700 AC 12/27 IV 1347 Lorazepam 2 MG Q4 HRS NEEDED PRN 12/22 1999 AC 12/27 IV 1220 Morphine Sulfate 90 MG Q6H 12/26 2359 AC 12/27 N/A 1 UNIT IV 1154 Morphine Sulfate 100 MG Q6H 12/23 1400 DC 03/28 Dextrose/Water 100 ML IV 2006 Morphine Sulfate See Dose [id number] PRN 12/21 2345 AC 12/27 Insts (1) IV 1349 Scopolamine HBr 2 PAT Q72H 12/28 1999 AC TOP Dose Instructions: (1)Morphine Sulfate: HOSPICE PROTOCOL FOR USE ON 2NA AND ICU ONLY Give initial bolus of ____mg (typical 3-5mg) IV or Sub-Q. Start infusion @: __4____ mg/hr (typical 1-2mg/hr) TITRATION PROTOCOL: Pain scsore 1-4 (grimace/moan) give 50% basal rate (max 10mg) as bolus IV or Sub-Q every 20 minutes PRN x3 doses; Pain 5-10 (yelling or visibly distressed) or labored respirations or respiration rate greater than 20/minute give 100% basal rate (max 10mg) as bolus IV or Sub-Q every 20 minutes PRN x3 doses. If above symptoms not improved, increase basal rate by 100% (not more than 10mg increments), and repeat protocol, inform MD. Assessment/Plan Hospice Assessment/Recommendations: 57-year-old female with cerebral palsy admitted with septic shock (gram negative bacteremia) due to pyelonephritis with obstructive uropathy (left sided hydronephrosis), EDIL and respiratory failure requiring intubation without clinical improvement, s/p terminal extubation and placed on hospice care. Labored respirations-pt receiving ativan now, discussed with nursing about morphine bolus 10mg if no response from ativan in 15 min. Titrate per protocol Fever-continue scheduled Tylenol and use ASA rectally for ineffective response Secretions-continue scheduled Robinul and scopolamine 2 patches. Problem List: 1. Gram-negative bacteremia 2. Hospice care 3. Fever
[2017-12-28 06:20] VITALS: BP 80/42
--- NOTE | 2017-12-28 15:59 | Discharge Summary ---
Visit Information Visit Dates Admission Date: 12/21/17 Discharge Date: 12/28/17 Hospital Course Course Attending Physician: Nick Ryan MD Primary Care Physician: Rafael Olivo MD Hospital Course: 57-year-old female with cerebral palsy admitted with septic shock (gram negative bacteremia) due to pyelonephritis with obstructive uropathy (left sided hydronephrosis), EDIL and respiratory failure requiring intubation without clinical improvement, s/p terminal extubation and placed on hospice care. She was kept comfortable on morphine drip for dyspnea, ativan for anxiety and Robinul and scopolamine for secretions, Tylenol and aspirin for fever, until she passed peacefully. Allergies: Coded Allergies: No Known Allergies (12/10/17) Disposition Summary Disposition Principal Diagnosis: Escherichia Coli sepsis Escherichia Coli urinary tract infection Hydronephrosis, left side, severe Additional Diagnosis: Cerebral Palsy Discharge Disposition: Discharge Instructions General Discharge Information Code Status: Hospice Patient's Diet: N/A Patient's Activity: N/A Follow-Up Instructions/Appts: N/A Copies To: Rafael Olivo MD
== END 2017-12-28 13:54 | disposition expired | DRG 871 ==
LOC: 2NA 19:25
DX: A41.51 Sepsis due to Escherichia coli [E. coli] (principal); R65.21 Severe sepsis with septic shock; J96.00 Acute respiratory failure, unspecified whether with hypoxia or hypercapnia; N17.9 Acute kidney failure, unspecified; N13.2 Hydronephrosis with renal and ureteral calculous obstruction; Z51.5 Encounter for palliative care; K12.1 Other forms of stomatitis; G80.9 Cerebral palsy, unspecified
CPT/HCPCS: 2NAP; J2270